=== PATIENT | female | born 1970 | race American Indian/Alaskan Native ===

== ENCOUNTER 2017-07-03 15:31 | Emergency (ER) | payer BC ==
[~2017-07-03] VITALS: Ht 162.6 cm; Wt 69.9 kg
[~2017-07-03 15:31] MED LIST: CLON0.5T23 PO; DESV50TA PO; FLO0.4C PO; LAMO100T2 PO
[2017-07-03 16:25] LABS: CLARITY,URINE SLIGHTLY CLOUDY (Clear); GLUCOSE, URINE NEGATIVE (Neg); KETONES,URINE TRACE mg/dl (Neg); LEUKOCYTE ESTERASE ,URINE NEGATIVE (Neg); NITRITES, URINE NEGATIVE (Neg); OCCULT BLOOD,URINE NEGATIVE (Neg); PROTEIN,URINE NEGATIVE (Neg); UROBILINOGEN,URINE 0.2 E.U/dL (0.2-1.0)
[2017-07-03 16:28] LABS: COLOR,URINE DARK YELLOW (Yellow); UA COLLECTION TYPE CLN CATCH MIDSTREAM
[2017-07-03 16:30] LABS: BACTERIA,URINE 1+ /HPF (Neg); MUCUS STRANDS MANY /LPF (Neg); RBC,URINE 0-2 /HPF (0-2); RENAL CELLS, URINE FEW /HPF; SQUAMOUS EPITHELIAL CELL,UR MANY /LPF (FEW); WBC,URINE 0-4 /HPF (0-4)
[2017-07-03] MEDS ORDERED: morphine 5 MG/ML injection IM ONE (17:00)
[2017-07-03 17:11] LABS: ANION GAP 11 (8-16); BLOOD UREA NITROGEN 16 MG/DL (7-18); BUN/CREATININE RATIO 13.3 (6.6-38.0); CALCIUM 9.2 MG/DL (8.5-10.1); CHLORIDE 104 MMOL/L (99-107); GLUCOSE 103 MG/DL (70-104); POTASSIUM 3.5 MMOL/L (3.5-5.1); SODIUM 141 MMOL/L (135-145); TOTAL CARBON DIOXIDE 26.1 MMOL/L (24-32); eGFR 48 ML/MIN
[2017-07-03] MEDS ORDERED: HYDR-569 PO (17:59)
[2017-07-03] MEDS ORDERED: FLO0.4C PO (17:59)
[2017-07-03] MEDS ORDERED: CYCL-1 PO (17:59)
[2017-07-03 18:06] VITALS: BP 106/70
== END 2017-07-03 18:08 | disposition home or self-care (01) ==
LOC: ER 15:32
DX: S39.012A Strain of muscle, fascia and tendon of lower back, initial encounter (principal); M62.838 Other muscle spasm; N18.9 Chronic kidney disease, unspecified; X58.XXXA Exposure to other specified factors, initial encounter; Y93.89 Activity, other specified; Y92.89 Other specified places as the place of occurrence of the external cause; Y99.8 Other external cause status; Z87.442 Personal history of urinary calculi; Z90.49 Acquired absence of other specified parts of digestive tract; Z88.1 Allergy status to other antibiotic agents; Z90.710 Acquired absence of both cervix and uterus
CPT/HCPCS: 36415; 80048; 81001; 96372; 99284; J2270

== ENCOUNTER 2017-08-25 06:04 | Day surgery (SDC) | payer BC ==
[2017-08-20 11:22] LABS: BASOPHILS % (AUTO) 0.7 % (0-1); EOSINOPHILS # (AUTO) 0.2 X10'3 (0-0.9); EOSINOPHILS % (AUTO) 3.1 % (0-6); LYMPHOCYTES # (AUTO) 2.3 X10'3 (1.1-4.8); LYMPHOCYTES % (AUTO) 38.4 % (21-51); MEAN CORPUSCULAR HEMOGLOBIN 30.3 PG (27.0-31.0); MEAN CORPUSCULAR HGB CONC 33.7 % (33.0-36.5); MEAN CORPUSCULAR VOLUME 89.7 FL (78-98); MEAN PLATELET VOLUME 7.8 FL (7.4-10.4); MONOCYTES # (AUTO) 0.4 X10'3 (0-0.9); MONOCYTES % (AUTO) 6.5 % (2-12); NEUTROPHILS # (AUTO) 3.1 X10'3 (1.8-7.7); NEUTROPHILS % (AUTO) 51.3 % (42-75); PRE OP HEMATOCRIT 45.7 % (35.0-45.0); PRE OP HEMOGLOBIN 15.4 g/dL (12.0-16.0); PRE OP PLATELET COUNT 281 X10'3 (140-440); RED BLOOD COUNT 5.09 X10'6 (4.20-5.60); RED CELL DISTRIBUTION WIDTH 12.9 % (11.5-14.5)
[2017-08-20 11:27] LABS: CLARITY,URINE CLEAR (Clear); COLOR,URINE YELLOW (Yellow); GLUCOSE, URINE NEGATIVE (Neg); KETONES,URINE NEGATIVE (Neg); LEUKOCYTE ESTERASE ,URINE NEGATIVE (Neg); NITRITES, URINE NEGATIVE (Neg); OCCULT BLOOD,URINE NEGATIVE (Neg); PROTEIN,URINE NEGATIVE (Neg); UROBILINOGEN,URINE 0.2 E.U/dL (0.2-1.0)
[2017-08-20 11:36] LABS: UA COLLECTION TYPE NON-SPECIFIED
[2017-08-20 11:38] LABS: ALBUMIN 4.2 G/DL (3.4-5.0); ALKALINE PHOSPHATASE 110 IU/L (46-116); BLOOD UREA NITROGEN 14 MG/DL (7-18); BUN/CREATININE RATIO 11.4 (6.6-38.0); CHLORIDE 103 MMOL/L (99-107); CREATININE 1.23 MG/DL (0.40-0.90); PRE OP ALT 46 U/L (30-65); PRE OP ANION GAP 9 (8-16); PRE OP AST 29 U/L (10-37); PRE OP BILIRUB, TOTAL 0.5 MG/DL (0.0-1.0); PRE OP GLUCOSE 108 MG/DL (70-104); PRE OP POTASSIUM 3.9 MMOL/L (3.4-5.1); PRE OP SODIUM 142 MMOL/L (135-145); TOTAL CARBON DIOXIDE 30.5 MMOL/L (24-32); TOTAL PROTEIN 8.3 G/DL (6.4-8.2); eGFR 47 ML/MIN
[~2017-08-25] VITALS: Ht 162.6 cm; Wt 70.3 kg
[2017-08-25] VITALS (10 sets, daily range): BP systolic 97–144; BP diastolic 50–73
[~2017-08-25 06:04] MED LIST changes: -FLO0.4C PO; +MELA3TAB PO; +cefazolin/dext.iso 2gm/50ml 50 ML IV ONE; +famotidine 20mg tablet PO ONE; +ringers solution, lacted 1,000 ML IV SCH
[2017-08-25] MEDS ORDERED: LIDOcaine 1% (10mg/ml) 2ml vial ONE (06:16)
[2017-08-25] MEDS ORDERED: BUPIVAcaine/PF 2.5 mg/ml (0.25%) 30ml vial ONE (07:45)
[2017-08-25] MEDS ORDERED: ceFAZolin 1000mg inj ONE (07:45)
[2017-08-25] MEDS ORDERED: epiNEPHrine 1 mg/ml inj ONE (07:45)
[2017-08-25] MEDS ORDERED: fentaNYL /PF 50mcg/ml 5ml ampule ONE (08:28)
[2017-08-25] MEDS ORDERED: midazolam 2 mg/2 ml injection ONE (08:28)
[2017-08-25] MEDS ORDERED: propofol inj 20 ML IV ONE (08:28)
[2017-08-25] MEDS ORDERED: rocuronium 10mg/ml inj IV ONE (08:34)
[2017-08-25] MEDS ORDERED: ketorolac trometh. 30mg/ml inj. ONE (08:49)
[2017-08-25] MEDS ORDERED: sevoflurane 250ml liquid IH ONE (08:49)
[2017-08-25] MEDS ORDERED: ringers solution, lacted 1,000 ML IV SCH (09:27)
[2017-08-25] MEDS ORDERED: proCHLORperazine 10 MG/2 ml inj IV PRN (09:30)
[2017-08-25] MEDS ORDERED: meperidine/PF 50mg/ml syringe IV PRN ×3 (09:30)
[2017-08-25] MEDS ORDERED: morphine 4 MG/ML inj SYRINge IV PRN ×2 (09:30)
[2017-08-25] MEDS ORDERED: ondansetron/PF 4mg/2ml inj IV PRN (09:30)
[2017-08-25] MEDS ORDERED: neostigmine methylsulfate 1 MG/ML 10ml vial ONE (09:31)
[2017-08-25] MEDS ORDERED: glycopyrrolate 0.2mg/ml inj ONE (09:32)
== END 2017-08-25 11:00 | disposition home or self-care (01) ==
LOC: PAS 06:04
PROVIDERS: ATTEND Surgery
DX: K43.6 Other and unspecified ventral hernia with obstruction, without gangrene (principal); K66.0 Peritoneal adhesions (postprocedural) (postinfection); F32.9 Major depressive disorder, single episode, unspecified; Z90.49 Acquired absence of other specified parts of digestive tract; Z90.710 Acquired absence of both cervix and uterus; Z88.2 Allergy status to sulfonamides; Z91.048 Other nonmedicinal substance allergy status; Z91.018 Allergy to other foods; Z88.8 Allergy status to other drugs, medicaments and biological substances; Z90.89 Acquired absence of other organs; Z79.899 Other long term (current) drug therapy; Z98.890 Other specified postprocedural states
CPT/HCPCS: 36415; 49653; 80053; 81003; 85025; A4315; J0171; J0690; J1885; J2250; J2270; J2704; J2710; J3010; J3490; J7120; A7000

== ENCOUNTER 2017-10-17 10:12 | Emergency (ER) | payer BC ==
[~2017-10-17] VITALS: Ht 162.6 cm; Wt 71.0 kg
[~2017-10-17 10:12] MED LIST changes: -cefazolin/dext.iso 2gm/50ml 50 ML IV ONE; -famotidine 20mg tablet PO ONE; -ringers solution, lacted 1,000 ML IV SCH
[2017-10-17 10:22] VITALS: BP 112/76
[2017-10-17 10:47] LABS: BASOPHILS % (AUTO) 0.4 % (0-1); EOSINOPHILS # (AUTO) 0.2 X10'3 (0-0.9); EOSINOPHILS % (AUTO) 2.9 % (0-6); HEMATOCRIT 43.4 % (35.0-45.0); HEMOGLOBIN 14.9 g/dl (12.0-16.0); LYMPHOCYTES # (AUTO) 2.4 X10'3 (1.1-4.8); LYMPHOCYTES % (AUTO) 38.4 % (21-51); MEAN CORPUSCULAR HEMOGLOBIN 30.7 PG (27.0-31.0); MEAN CORPUSCULAR HGB CONC 34.4 % (33.0-36.5); MEAN CORPUSCULAR VOLUME 89.4 FL (78-98); MEAN PLATELET VOLUME 7.4 FL (7.4-10.4); MONOCYTES # (AUTO) 0.4 X10'3 (0-0.9); MONOCYTES % (AUTO) 6.5 % (2-12); NEUTROPHILS # (AUTO) 3.3 X10'3 (1.8-7.7); NEUTROPHILS % (AUTO) 51.8 % (42-75); PLATELET COUNT 278 X10'3 (140-440); RED BLOOD COUNT 4.85 X10'6 (4.20-5.60); RED CELL DISTRIBUTION WIDTH 13.1 % (11.5-14.5); WHITE BLOOD COUNT 6.3 X10'3 (4.5-11.0)
[2017-10-17 11:00] LABS: CLARITY,URINE CLEAR (Clear); COLOR,URINE YELLOW (Yellow); GLUCOSE, URINE NEGATIVE (Neg); KETONES,URINE NEGATIVE (Neg); LEUKOCYTE ESTERASE ,URINE TRACE (Neg); NITRITES, URINE NEGATIVE (Neg); OCCULT BLOOD,URINE NEGATIVE (Neg); PH,URINE 5.5 (4.8-8.0); PROTEIN,URINE NEGATIVE (Neg); URINE HCG NEGATIVE (NEG); UROBILINOGEN,URINE 0.2 E.U/dL (0.2-1.0)
[2017-10-17 11:02] LABS: ALBUMIN 4.1 G/DL (3.4-5.0); ANION GAP 8 (8-16); BILIRUBIN,TOTAL 0.6 MG/DL (0.1-1.0); BLOOD UREA NITROGEN 16 MG/DL (7-18); BUN/CREATININE RATIO 11.5 (6.6-38.0); CALCIUM 9.6 MG/DL (8.5-10.1); CHLORIDE 102 MMOL/L (99-107); CREATININE 1.39 MG/DL (0.40-0.90); GLUCOSE 110 MG/DL (70-104); POTASSIUM 3.3 MMOL/L (3.5-5.1); SODIUM 139 MMOL/L (135-145); TOTAL CARBON DIOXIDE 28.7 MMOL/L (24-32); TOTAL PROTEIN 7.9 G/DL (6.4-8.2); eGFR 41 ML/MIN
[2017-10-17 11:03] LABS: ALANINE AMINOTRANSFERASE 40 U/L (12-78); ALBUMIN/GLOBULIN RATIO 1.1 (1.1-1.5); ALKALINE PHOSPHATASE 124 IU/L (46-116); ASPARTATE AMINO TRANSFERASE 24 U/L (10-37)
[2017-10-17 11:04] LABS: UA COLLECTION TYPE CLN CATCH MIDSTREAM
[2017-10-17 11:05] LABS: BACTERIA,URINE FEW /HPF (Neg); MUCUS STRANDS FEW /LPF (Neg); RBC,URINE 0-2 /HPF (0-2); SQUAMOUS EPITHELIAL CELL,UR MODERATE /LPF (FEW)
[2017-10-17 11:06] LABS: PROTHROMBIN TIME 10.2 SECONDS (9.0-12.0)
[2017-10-17] MEDS ORDERED: CIPR-230 PO (11:53)
[2017-10-17] MEDS ORDERED: HYDR-3965 PO (11:53)
== END 2017-10-17 12:03 | disposition home or self-care (01) ==
LOC: ER 10:13
DX: N39.0 Urinary tract infection, site not specified (principal); N18.9 Chronic kidney disease, unspecified; Z87.442 Personal history of urinary calculi; Z90.49 Acquired absence of other specified parts of digestive tract; Z90.710 Acquired absence of both cervix and uterus; Z88.8 Allergy status to other drugs, medicaments and biological substances; Z79.899 Other long term (current) drug therapy
CPT/HCPCS: 36415; 74176; 80053; 81001; 81025; 85025; 85610; 87088; 99285

== ENCOUNTER 2017-11-03 12:49 | Emergency (ER) | payer BC ==
[~2017-11-03] VITALS: Ht 162.6 cm; Wt 70.9 kg
[~2017-11-03 12:49] MED LIST changes: +CIPR-230 PO; +HYDR-3965 PO
[2017-11-03 14:14] LABS: BASOPHILS # (AUTO) 0.1 X10'3 (0-0.2); EOSINOPHILS # (AUTO) 0.2 X10'3 (0-0.9); HEMATOCRIT 41.9 % (35.0-45.0); HEMOGLOBIN 14.7 g/dl (12.0-16.0); LYMPHOCYTES # (AUTO) 2.2 X10'3 (1.1-4.8); LYMPHOCYTES % (AUTO) 43.3 % (21-51); MEAN CORPUSCULAR HGB CONC 35.1 % (33.0-36.5); MEAN CORPUSCULAR VOLUME 88.4 FL (78-98); MEAN PLATELET VOLUME 7.6 FL (7.4-10.4); MONOCYTES # (AUTO) 0.4 X10'3 (0-0.9); NEUTROPHILS # (AUTO) 2.3 X10'3 (1.8-7.7); NEUTROPHILS % (AUTO) 45.7 % (42-75); PLATELET COUNT 256 X10'3 (140-440); RED BLOOD COUNT 4.74 X10'6 (4.20-5.60); RED CELL DISTRIBUTION WIDTH 13.1 % (11.5-14.5); WHITE BLOOD COUNT 5.1 X10'3 (4.5-11.0)
[2017-11-03 14:30] LABS: ALANINE AMINOTRANSFERASE 40 U/L (12-78); ALKALINE PHOSPHATASE 103 IU/L (46-116); ANION GAP 12 (8-16); ASPARTATE AMINO TRANSFERASE 29 U/L (10-37); BILIRUBIN,TOTAL 0.6 MG/DL (0.1-1.0); BLOOD UREA NITROGEN 15 MG/DL (7-18); BUN/CREATININE RATIO 12.3 (6.6-38.0); CALCIUM 9.2 MG/DL (8.5-10.1); CHLORIDE 103 MMOL/L (99-107); CREATININE 1.22 MG/DL (0.40-0.90); GLUCOSE 102 MG/DL (70-104); POTASSIUM 3.7 MMOL/L (3.5-5.1); SODIUM 141 MMOL/L (135-145); TOTAL CARBON DIOXIDE 25.8 MMOL/L (24-32); eGFR 47 ML/MIN
[2017-11-03 14:40] LABS: ETHANOL < 0.010 GM/DL (0.0-0.010)
[2017-11-03 14:58] LABS: CLARITY,URINE CLOUDY (Clear); COLOR,URINE YELLOW (Yellow); GLUCOSE, URINE NEGATIVE (Neg); KETONES,URINE NEGATIVE (Neg); LEUKOCYTE ESTERASE ,URINE TRACE (Neg); NITRITES, URINE NEGATIVE (Neg); OCCULT BLOOD,URINE NEGATIVE (Neg); PH,URINE 5.5 (4.8-8.0); PROTEIN,URINE NEGATIVE (Neg); UA COLLECTION TYPE CLN CATCH MIDSTREAM; UROBILINOGEN,URINE 0.2 E.U/dL (0.2-1.0)
[2017-11-03 14:59] LABS: URINE HCG NEGATIVE (NEG)
[2017-11-03 15:16] LABS: MUCUS STRANDS MODERATE /LPF (Neg); SQUAMOUS EPITHELIAL CELL,UR MANY /LPF (FEW)
[2017-11-03 15:17] LABS: BACTERIA,URINE 1+ /HPF (Neg); RBC,URINE 0-2 /HPF (0-2); WBC,URINE 0-4 /HPF (0-4)
[2017-11-03 15:23] LABS: URINE AMPHETAMINE SCREEN NEGATIVE (Neg); URINE BARBITUATE SCREEN NEGATIVE (Neg); URINE BENZODIAZEPINES SCREEN NEGATIVE (Neg); URINE CANNABINOID SCREEN POSITIVE (Neg); URINE COCAINE SCREEN NEGATIVE (Neg); URINE METHADONE SCREEN NEGATIVE (Neg); URINE OPIATE SCREEN POSITIVE (Neg); URINE PHENCYCLIDINE SCREEN NEGATIVE (Neg)
[2017-11-03 17:44] LABS: ACETAMINOPHEN < 2.0 UG/ML (10-30)
[2017-11-03] MEDS ORDERED: LORazepam 2 mg/ml vial IM ONE (19:20)
[2017-11-03] MEDS ORDERED: LORazepam 2 mg/ml vial ONE (19:52)
[2017-11-03] MEDS ORDERED: CLON-527 PO (20:04)
[2017-11-03] MEDS ORDERED: TAMS0.4C32 PO (20:04)
[2017-11-03] MEDS ORDERED: DICL75TA5 PO (20:04)
[2017-11-03] MEDS ORDERED: ACET1TAB12 PO (20:04)
[2017-11-03] MEDS ORDERED: acetaminophen w/codeine (30MG) #3 tablet PO PRN (20:25)
[2017-11-03] MEDS ORDERED: Melatonin 3mg tablet PO PRN (20:25)
[2017-11-03] MEDS ORDERED: venlafaxine 25mg tablet PO SCH (21:00)
[2017-11-03 22:07] VITALS: BP 97/65
[2017-11-04] MEDS ORDERED: clonazePAM 1mg tablet PO SCH (08:00)
[2017-11-04] MEDS ORDERED: lamoTRIgine 100mg tablet PO SCH (08:00)
[2017-11-04] MEDS ORDERED: tamsulosin 0.4mg capsule PO SCH (08:00)
== END 2017-11-03 22:10 ==
LOC: ER 12:50
DX: F32.9 Major depressive disorder, single episode, unspecified (principal); R45.851 Suicidal ideations; N18.9 Chronic kidney disease, unspecified; F15.10 Other stimulant abuse, uncomplicated; Z90.49 Acquired absence of other specified parts of digestive tract; Z98.890 Other specified postprocedural states; Z91.02 Food additives allergy status; Z88.8 Allergy status to other drugs, medicaments and biological substances; Z79.899 Other long term (current) drug therapy
CPT/HCPCS: 36415; 80053; 80305; 80320; 80329; 81001; 81025; 84443; 85025; 96372; 99285; J2060

== ENCOUNTER 2017-11-03 20:45 | Inpatient (IN) | payer BC ==
[~2017-11-03] VITALS: Ht 162.6 cm; Wt 71.5 kg
[~2017-11-03 20:45] MED LIST changes: +ACET1TAB12 PO; +CLON-527 PO; +DICL75TA5 PO; +TAMS0.4C32 PO
[2017-11-03] MEDS ORDERED: acetaminophen 325mg tablet PO PRN (22:40)
[2017-11-03] MEDS ORDERED: magnesium hydroxide 30ml (MOM) UD suspension PO PRN (22:40)
[2017-11-03] MEDS ORDERED: mag hydrox/Alum hydrox/simeth 30ml oral suspension PO PRN (22:40)
[2017-11-03 23:19] VITALS: BP 110/76
[2017-11-04 08:32] VITALS: BP 116/87
[2017-11-04] MEDS: lamoTRIgine 100mg tablet PO SCH (08:40)
[2017-11-04] MEDS: clonazePAM 1mg tablet PO SCH ×2 (08:40→21:02)
[2017-11-04 09:54] LABS: HEMOGLOBIN A1C 5.7 % (4.5-6.2)
[2017-11-04 10:12] LABS: CHOL/HDL RATIO 6.9 (0.00-4.99); CHOLESTEROL 284 MG/DL (0-200); HDL CHOLESTEROL 41 MG/DL (35-60); LDL CHOLESTEROL 205 MG/DL (50-100); TRIGLYCERIDES 168 MG/DL (20-135)
[2017-11-04] MEDS: atorvastatin 20mg tablet PO SCH (12:38)
[2017-11-04] MEDS: acetaminophen w/codeine (30MG) #3 tablet PO PRN ×2 (12:41→21:01)
[2017-11-04 19:47] VITALS: BP 98/62
[2017-11-04] MEDS: traZODone 50mg tablet PO PRN (21:08)
[2017-11-05] MEDS ORDERED: venlafaxine XR 75mg capsule (Q24H) PO SCH (08:00)
[2017-11-05] MEDS: atorvastatin 20mg tablet PO SCH (08:20)
[2017-11-05] MEDS: lamoTRIgine 100mg tablet PO SCH (08:21)
[2017-11-05] MEDS: clonazePAM 1mg tablet PO SCH ×2 (08:21→20:40)
[2017-11-05 08:30] VITALS: BP 95/63
[2017-11-05] MEDS: DESVENLAFAXINE PO SCH (09:08)
[2017-11-05] MEDS: acetaminophen w/codeine (30MG) #3 tablet PO PRN ×2 (13:47→20:39)
[2017-11-05 20:34] VITALS: BP 103/62
[2017-11-05] MEDS: traZODone 50mg tablet PO PRN (20:38)
[2017-11-06] MEDS: DESVENLAFAXINE PO SCH (08:02)
[2017-11-06] MEDS: lamoTRIgine 100mg tablet PO SCH (08:02)
[2017-11-06] MEDS: atorvastatin 20mg tablet PO SCH (08:03)
[2017-11-06] MEDS: clonazePAM 1mg tablet PO SCH ×2 (08:03→20:32)
[2017-11-06 08:24] VITALS: BP 91/46
[2017-11-06] MEDS: acetaminophen 325mg tablet PO PRN ×3 (10:07→17:52)
[2017-11-06] MEDS: acetaminophen w/codeine (30MG) #3 tablet PO PRN (17:56)
[2017-11-06 20:00] VITALS: BP 107/61
[2017-11-06] MEDS: traZODone 50mg tablet PO PRN (20:32)
[2017-11-07 08:00] VITALS: BP 103/58
[2017-11-07] MEDS: DESVENLAFAXINE PO SCH (08:35)
[2017-11-07] MEDS: lamoTRIgine 100mg tablet PO SCH (08:36)
[2017-11-07] MEDS: clonazePAM 1mg tablet PO SCH ×2 (08:36→20:50)
[2017-11-07] MEDS: atorvastatin 20mg tablet PO SCH (08:36)
[2017-11-07] MEDS ORDERED: DESVENLAFAXINE PO SCH (13:06)
[2017-11-07] MEDS ORDERED: hydrOXYzine 25 MG tablet PO PRN (17:40)
[2017-11-07 19:16] VITALS: BP 116/70
[2017-11-07] MEDS: acetaminophen w/codeine (30MG) #3 tablet PO PRN (20:49)
[2017-11-07] MEDS: traZODone 50mg tablet PO PRN (20:50)
[2017-11-08] MEDS: atorvastatin 20mg tablet PO SCH (07:58)
[2017-11-08] MEDS: clonazePAM 1mg tablet PO SCH (07:58)
[2017-11-08] MEDS: lamoTRIgine 100mg tablet PO SCH (07:58)
[2017-11-08 08:00] VITALS: BP 103/65
[2017-11-08] MEDS ORDERED: ATOR20TA66 PO (08:50)
[2017-11-08] MEDS ORDERED: TRAZ-143 PO (08:50)
[2017-11-08] MEDS ORDERED: HYDR-3686 PO (08:50)
[2017-11-08] MEDS ORDERED: DESV100T16 PO (08:50)
== END 2017-11-08 10:35 | disposition home or self-care (01) | DRG 881 ==
LOC: ADULT MH 20:45
PROVIDERS: ADMIT Psychiatry & Neurology Psychiatry; ATTEND Psychiatry & Neurology Psychiatry
DX: F32.9 Major depressive disorder, single episode, unspecified (principal); R45.851 Suicidal ideations; E78.5 Hyperlipidemia, unspecified; F43.10 Post-traumatic stress disorder, unspecified; K57.90 Diverticulosis of intestine, part unspecified, without perforation or abscess without bleeding; S61.519A Laceration without foreign body of unspecified wrist, initial encounter; W45.8XXA Other foreign body or object entering through skin, initial encounter; F41.9 Anxiety disorder, unspecified; G47.00 Insomnia, unspecified; N18.9 Chronic kidney disease, unspecified; Z62.810 Personal history of physical and sexual abuse in childhood; Z81.8 Family history of other mental and behavioral disorders; Z87.442 Personal history of urinary calculi; Z90.710 Acquired absence of both cervix and uterus; Y93.89 Activity, other specified; Y92.89 Other specified places as the place of occurrence of the external cause; Y99.8 Other external cause status
CPT/HCPCS: 36415; 80061; 83036; 84443; 87070; 99285; Q0177

== ENCOUNTER 2017-11-21 18:09 | Emergency (ER) | payer BC ==
[~2017-11-21] VITALS: Ht 162.6 cm; Wt 70.0 kg
[~2017-11-21 18:09] MED LIST changes: +ATOR20TA66 PO; -CIPR-230 PO; -CLON0.5T23 PO; +DESV100T16 PO; -DESV50TA PO; +HYDR-3686 PO; -HYDR-3965 PO; +TRAZ-143 PO
[2017-11-21 18:55] LABS: CLARITY,URINE SLIGHTLY CLOUDY (Clear); COLOR,URINE YELLOW (Yellow); GLUCOSE, URINE NEGATIVE (Neg); KETONES,URINE NEGATIVE (Neg); LEUKOCYTE ESTERASE ,URINE TRACE (Neg); NITRITES, URINE NEGATIVE (Neg); OCCULT BLOOD,URINE NEGATIVE (Neg); PH,URINE 5.5 (4.8-8.0); PROTEIN,URINE NEGATIVE (Neg); UROBILINOGEN,URINE 0.2 E.U/dL (0.2-1.0)
[2017-11-21 18:56] LABS: UA COLLECTION TYPE CLN CATCH MIDSTREAM
[2017-11-21 19:13] LABS: BACTERIA,URINE 2+ /HPF (Neg); MUCUS STRANDS MANY /LPF (Neg); RBC,URINE NONE SEEN /HPF (0-2); SQUAMOUS EPITHELIAL CELL,UR MANY /LPF (FEW)
[2017-11-21 19:32] LABS: BASOPHILS # (AUTO) 0.1 X10'3 (0-0.2); BASOPHILS % (AUTO) 1.4 % (0-1); EOSINOPHILS # (AUTO) 0.2 X10'3 (0-0.9); EOSINOPHILS % (AUTO) 3.2 % (0-6); HEMATOCRIT 43.7 % (35.0-45.0); LYMPHOCYTES # (AUTO) 2.8 X10'3 (1.1-4.8); LYMPHOCYTES % (AUTO) 38.4 % (21-51); MEAN CORPUSCULAR HEMOGLOBIN 30.9 PG (27.0-31.0); MEAN CORPUSCULAR HGB CONC 34.3 % (33.0-36.5); MEAN CORPUSCULAR VOLUME 90.2 FL (78-98); MEAN PLATELET VOLUME 7.5 FL (7.4-10.4); MONOCYTES # (AUTO) 0.4 X10'3 (0-0.9); MONOCYTES % (AUTO) 5.8 % (2-12); NEUTROPHILS # (AUTO) 3.7 X10'3 (1.8-7.7); NEUTROPHILS % (AUTO) 51.2 % (42-75); PLATELET COUNT 276 X10'3 (140-440); RED BLOOD COUNT 4.85 X10'6 (4.20-5.60); WHITE BLOOD COUNT 7.3 X10'3 (4.5-11.0)
[2017-11-21] MEDS ORDERED: ondansetron/PF 4mg/2ml inj IV ONE (19:45)
[2017-11-21] MEDS ORDERED: normal saline 1000ML IV soln IVB ONE (19:45)
[2017-11-21] MEDS ORDERED: ketorolac tromethamine 15mg/ml inj. IV ONE (19:45)
[2017-11-21 19:48] LABS: ALANINE AMINOTRANSFERASE 37 U/L (12-78); ALBUMIN 4.3 G/DL (3.4-5.0); ALKALINE PHOSPHATASE 133 IU/L (46-116); ANION GAP 11 (8-16); ASPARTATE AMINO TRANSFERASE 24 U/L (10-37); BILIRUBIN,TOTAL 0.7 MG/DL (0.1-1.0); BLOOD UREA NITROGEN 16 MG/DL (7-18); BUN/CREATININE RATIO 11.9 (6.6-38.0); CALCIUM 9.8 MG/DL (8.5-10.1); CHLORIDE 102 MMOL/L (99-107); CREATININE 1.34 MG/DL (0.40-0.90); GLUCOSE 94 MG/DL (70-104); POTASSIUM 3.8 MMOL/L (3.5-5.1); SODIUM 140 MMOL/L (135-145); TOTAL CARBON DIOXIDE 27.4 MMOL/L (24-32); TOTAL PROTEIN 8.4 G/DL (6.4-8.2); eGFR 43 ML/MIN
[2017-11-21 20:07] LABS: CLARITY,URINE CLEAR (Clear); COLOR,URINE YELLOW (Yellow); GLUCOSE, URINE NEGATIVE (Neg); KETONES,URINE NEGATIVE (Neg); LEUKOCYTE ESTERASE ,URINE NEGATIVE (Neg); NITRITES, URINE NEGATIVE (Neg); OCCULT BLOOD,URINE NEGATIVE (Neg); PH,URINE 5.5 (4.8-8.0); PROTEIN,URINE NEGATIVE (Neg); UROBILINOGEN,URINE 0.2 E.U/dL (0.2-1.0)
[2017-11-21 20:11] LABS: UA COLLECTION TYPE CLN CATCH MIDSTREAM
[2017-11-21 20:11] LABS: LIPASE 113 U/L (73-393)
[2017-11-21 20:16] LABS: PROTHROMBIN TIME 10.7 SECONDS (9.0-12.0)
[2017-11-21] MEDS ORDERED: HYDR-565 PO (20:32)
[2017-11-21] MEDS ORDERED: ONDA4TAB9 SL (20:32)
[2017-11-21] MEDS ORDERED: FLO0.4C PO (20:32)
[2017-11-21 20:53] VITALS: BP 100/70
== END 2017-11-21 20:56 | disposition home or self-care (01) ==
LOC: ER 18:09
DX: N20.0 Calculus of kidney (principal); N18.9 Chronic kidney disease, unspecified; R10.31 Right lower quadrant pain; Z90.49 Acquired absence of other specified parts of digestive tract; Z90.710 Acquired absence of both cervix and uterus; Z88.2 Allergy status to sulfonamides; Z88.8 Allergy status to other drugs, medicaments and biological substances; Z91.018 Allergy to other foods; Z79.899 Other long term (current) drug therapy
CPT/HCPCS: 36415; 74176; 80053; 81001; 81003; 83690; 85025; 85610; 96374; 96375; 99285; J1885; J2405; J7030

== ENCOUNTER 2018-03-14 18:25 | Emergency (ER) | payer BC ==
[~2018-03-14] VITALS: Ht 162.6 cm; Wt 68.1 kg
[~2018-03-14 18:25] MED LIST changes: -TRAZ-143 PO; +TRAZ-218 PO
[2018-03-14 18:32] VITALS: BP 127/63
[2018-03-14] MEDS ORDERED: HYDROcodone/acetaminophen 10/325mg tab PO ONE (19:05)
== END 2018-03-14 19:24 | disposition home or self-care (01) ==
LOC: ER 18:26
DX: M25.562 Pain in left knee (principal); N18.9 Chronic kidney disease, unspecified; Z90.49 Acquired absence of other specified parts of digestive tract; Z90.710 Acquired absence of both cervix and uterus; Z98.890 Other specified postprocedural states; Z88.2 Allergy status to sulfonamides; Z88.1 Allergy status to other antibiotic agents; Z88.8 Allergy status to other drugs, medicaments and biological substances; Z91.018 Allergy to other foods; Z79.899 Other long term (current) drug therapy
CPT/HCPCS: 29505; 73564; 99284

== ENCOUNTER 2018-07-05 18:20 | Emergency (ER) | payer BC ==
[~2018-07-05] VITALS: Ht 162.6 cm; Wt 70.0 kg
[2018-07-05 19:22] LABS: BASOPHILS # (AUTO) 0.1 X10'3 (0-0.2); BASOPHILS % (AUTO) 0.7 % (0-1); EOSINOPHILS # (AUTO) 0.1 X10'3 (0-0.9); EOSINOPHILS % (AUTO) 1.7 % (0-6); HEMATOCRIT 42.7 % (35.0-45.0); HEMOGLOBIN 14.5 g/dl (12.0-16.0); LYMPHOCYTES # (AUTO) 2.2 X10'3 (1.1-4.8); MEAN CORPUSCULAR HEMOGLOBIN 31.4 PG (27.0-31.0); MEAN CORPUSCULAR VOLUME 92.2 FL (78-98); MEAN PLATELET VOLUME 7.4 FL (7.4-10.4); MONOCYTES # (AUTO) 0.4 X10'3 (0-0.9); NEUTROPHILS # (AUTO) 4.6 X10'3 (1.8-7.7); NEUTROPHILS % (AUTO) 61.6 % (42-75); PLATELET COUNT 304 X10'3 (140-440); RED BLOOD COUNT 4.64 X10'6 (4.20-5.60); RED CELL DISTRIBUTION WIDTH 12.7 % (11.5-14.5); WHITE BLOOD COUNT 7.4 X10'3 (4.5-11.0)
[2018-07-05 19:30] LABS: CLARITY,URINE CLEAR (Clear); COLOR,URINE YELLOW (Yellow); GLUCOSE, URINE NEGATIVE (Neg); KETONES,URINE NEGATIVE (Neg); LEUKOCYTE ESTERASE ,URINE NEGATIVE (Neg); NITRITES, URINE NEGATIVE (Neg); OCCULT BLOOD,URINE NEGATIVE (Neg); PROTEIN,URINE NEGATIVE (Neg); UROBILINOGEN,URINE 0.2 E.U/dL (0.2-1.0)
[2018-07-05 19:36] LABS: ALANINE AMINOTRANSFERASE 36 U/L (12-78); ALBUMIN 4.4 G/DL (3.4-5.0); ALBUMIN/GLOBULIN RATIO 1.1 (1.1-1.5); ALKALINE PHOSPHATASE 115 IU/L (46-116); ANION GAP 11 (8-16); ASPARTATE AMINO TRANSFERASE 17 U/L (10-37); BILIRUBIN,TOTAL 0.2 MG/DL (0.1-1.0); BLOOD UREA NITROGEN 16 MG/DL (7-18); BUN/CREATININE RATIO 14.7 (6.6-38.0); CALCIUM 9.3 MG/DL (8.5-10.1); CHLORIDE 103 MMOL/L (99-107); CREATININE 1.09 MG/DL (0.40-0.90); GLUCOSE 106 MG/DL (70-104); POTASSIUM 3.9 MMOL/L (3.5-5.1); SODIUM 143 MMOL/L (135-145); TOTAL CARBON DIOXIDE 29.2 MMOL/L (24-32); TOTAL PROTEIN 8.4 G/DL (6.4-8.2); eGFR 54 ML/MIN
[2018-07-05 19:38] LABS: UA COLLECTION TYPE CLN CATCH MIDSTREAM
[2018-07-05 19:43] LABS: PROTHROMBIN TIME 10.2 SECONDS (9.0-12.0)
[2018-07-05 19:48] LABS: URINE HCG NEGATIVE (NEG)
--- NOTE | 2018-07-05 21:37 | NUR ---
Patient is laying on the gurney in obvious discomfort, she reports abdominal/vaginal pain 12/21. She has had several abdominal surgeries and adhesion removals. Has seen PCP and Dr. Mas for this problem and they both think she has a prolapse and has been referred to Dr. Barajas. I will continue to monitor.
--- NOTE | 2018-07-05 22:33 | NUR ---
Patient laying comfortably sleeping on gurney, I will continue to monitor.
[2018-07-05] MEDS ORDERED: HYDROcodone/acetaminophen 5mg/325mg tablet PO ONE (22:45)
[2018-07-05] MEDS ORDERED: ketorolac trometh inj. 60 MG/2 ML VIAL IM ONE (22:45)
[2018-07-06 00:33] VITALS: BP 112/69
== END 2018-07-06 00:35 | disposition home or self-care (01) ==
LOC: ER 18:20
DX: R10.30 Lower abdominal pain, unspecified (principal); R30.9 Painful micturition, unspecified; N18.9 Chronic kidney disease, unspecified; Z90.49 Acquired absence of other specified parts of digestive tract; Z90.710 Acquired absence of both cervix and uterus; Z98.890 Other specified postprocedural states; Z88.1 Allergy status to other antibiotic agents; Z91.013 Allergy to seafood; Z91.041 Radiographic dye allergy status; Z79.899 Other long term (current) drug therapy
CPT/HCPCS: 36415; 80053; 81003; 81025; 85025; 85610; 96372; 99283; J1885

== ENCOUNTER 2018-10-05 08:49 | Day surgery (SDC) | payer BC, MEDICARE ==
[2018-10-03 16:57] LABS: CLARITY,URINE SLIGHTLY CLOUDY (Clear); COLOR,URINE YELLOW (Yellow); GLUCOSE, URINE NEGATIVE (Neg); KETONES,URINE TRACE mg/dl (Neg); LEUKOCYTE ESTERASE ,URINE TRACE (Neg); NITRITES, URINE NEGATIVE (Neg); OCCULT BLOOD,URINE NEGATIVE (Neg); PH,URINE 5.5 (4.8-8.0); PROTEIN,URINE NEGATIVE (Neg); UROBILINOGEN,URINE 0.2 E.U/dL (0.2-1.0)
[2018-10-03 16:58] LABS: ALBUMIN 4.3 G/DL (3.4-5.0); ALBUMIN/GLOBULIN RATIO 1.1 (1.1-1.5); ALKALINE PHOSPHATASE 111 IU/L (46-116); BLOOD UREA NITROGEN 16 MG/DL (7-18); BUN/CREATININE RATIO 12.8 (6.6-38.0); CALCIUM 10.3 MG/DL (8.5-10.1); CHLORIDE 102 MMOL/L (99-107); CREATININE 1.25 MG/DL (0.40-0.90); PRE OP ALT 59 U/L (30-65); PRE OP ANION GAP 10 (8-16); PRE OP AST 31 U/L (10-37); PRE OP BILIRUB, TOTAL 0.3 MG/DL (0.0-1.0); PRE OP GLUCOSE 93 MG/DL (70-104); PRE OP POTASSIUM 3.7 MMOL/L (3.4-5.1); PRE OP SODIUM 140 MMOL/L (135-145); TOTAL CARBON DIOXIDE 28.3 MMOL/L (24-32); TOTAL PROTEIN 8.3 G/DL (6.4-8.2); eGFR 46 ML/MIN
[2018-10-03 17:05] LABS: BACTERIA,URINE 1+ /HPF (Neg); RBC,URINE NONE SEEN /HPF (0-2); SQUAMOUS EPITHELIAL CELL,UR MODERATE /LPF (FEW); UA COLLECTION TYPE CLN CATCH MIDSTREAM
[2018-10-03 17:05] LABS: BASOPHILS % (AUTO) 0.5 % (0-1); EOSINOPHILS # (AUTO) 0.2 X10'3 (0-0.9); EOSINOPHILS % (AUTO) 2.4 % (0-6); LYMPHOCYTES # (AUTO) 2.3 X10'3 (1.1-4.8); LYMPHOCYTES % (AUTO) 32.6 % (21-51); MEAN CORPUSCULAR HEMOGLOBIN 31.5 PG (27.0-31.0); MEAN CORPUSCULAR HGB CONC 34.2 g/dL (33.0-36.5); MEAN CORPUSCULAR VOLUME 92.1 FL (78-98); MEAN PLATELET VOLUME 7.5 FL (7.4-10.4); MONOCYTES # (AUTO) 0.6 X10'3 (0-0.9); MONOCYTES % (AUTO) 7.8 % (2-12); NEUTROPHILS % (AUTO) 56.7 % (42-75); PRE OP HEMATOCRIT 43.6 % (35.0-45.0); PRE OP HEMOGLOBIN 14.9 g/dL (12.0-16.0); PRE OP PLATELET COUNT 290 X10'3 (140-440); RED BLOOD COUNT 4.73 X10'6 (4.20-5.60); RED CELL DISTRIBUTION WIDTH 12.6 % (11.5-14.5)
[2018-10-03 17:06] LABS: MUCUS STRANDS MANY /LPF (Neg)
[2018-10-05] VITALS (9 sets, daily range): BP systolic 92–121; BP diastolic 60–79
[~2018-10-05] VITALS: Ht 162.6 cm; Wt 71.0 kg
[~2018-10-05 08:49] MED LIST changes: -ACET1TAB12 PO; -ATOR20TA66 PO; +BUPIVAcaine/PF 2.5 mg/ml (0.25%) 30ml vial ONE; -CLON-527 PO; +DESV100T PO; -DESV100T16 PO; -DICL75TA5 PO; -HYDR-3686 PO; +LORA-835 PO; -MELA3TAB PO; -TAMS0.4C32 PO; -TRAZ-218 PO; +ceFAZolin 2gm in dextrose, iso 100 ML IV ONE; +famotidine 20mg tablet PO ONE; +ringers solution, lacted 1,000 ML IV SCH
[2018-10-05] MEDS ORDERED: BUPIVAcaine/PF 2.5 mg/ml (0.25%) 30ml vial IJ ONE (11:06)
[2018-10-05] MEDS ORDERED: sevoflurane 250ml liquid IH ONE (11:30)
[2018-10-05] MEDS ORDERED: BUPIVACAINE liposomal/PF 13.3 MG/ML vial IM ONE (11:30)
[2018-10-05] MEDS ORDERED: neostigmine methylsulfate 1 MG/ML 10ml vial ONE (11:30)
[2018-10-05] MEDS ORDERED: fentaNYL/PF 50MCG/1 ML 2ML syringe ONE (11:45)
[2018-10-05] MEDS ORDERED: midazolam 2 mg/2 ml injection ONE (11:45)
[2018-10-05] MEDS ORDERED: LIDOcaine 1%/PF 5ML 10 MG/ML VIAL ONE (12:10)
[2018-10-05] MEDS ORDERED: propofol inj 20 ML IV ONE (12:10)
[2018-10-05] MEDS ORDERED: rocuronium 10mg/ml inj IV ONE (12:10)
[2018-10-05] MEDS ORDERED: dexamethasone sod phosphate 4mg/ml inj. ONE (12:28)
[2018-10-05] MEDS ORDERED: ondansetron/PF 4mg/2ml inj ONE (12:29)
[2018-10-05] MEDS ORDERED: glycopyrrolate 0.2mg/ml inj ONE (12:30)
[2018-10-05] MEDS ORDERED: ringers solution, lacted 1,000 ML IV SCH (12:33)
[2018-10-05] MEDS ORDERED: labetalol 20mg/4ml (5mg/ml) syringe IV PRN (12:35)
[2018-10-05] MEDS ORDERED: ondansetron/PF 4mg/2ml inj IV PRN (12:35)
[2018-10-05] MEDS ORDERED: fentaNYL/PF 50MCG/1 ML 2ML syringe IV PRN ×2 (12:35)
[2018-10-05] MEDS ORDERED: morphine 4 MG/ML inj SYRINge IV PRN ×2 (12:35)
[2018-10-05] MEDS ORDERED: hydrALAZINE 20mg/ml inj. IV PRN (12:35)
--- NOTE | 2018-10-05 12:55 | NUR ---
Received from OR via BED , accompanied by Anesthesiologist DR MACHADO and report given by Anesthesiolgist. PATIENT WAKING UP, DENIES PAIN, V/S WNL, NEUROVASCULAR CHECKS INTACT, 20G PIV LUE, SCD ON, 3 BANDAIDS TO LAP SIGHTS OF ABDOMEN CDI.
--- NOTE | 2018-10-05 13:55 | NUR ---
PATIENT A&OX4, DENIES PAIN, V/S WNL, NEUROVASCULAR CHECKS INTACT, 20G PIV LUE D/C, SCD OFF, 3 BANDAIDS TO LAP SIGHTS OF ABDOMEN CDI.. I HAVE REVIEWED D/C INSTRUCTIONS WITH PATIENT AND FAMILY HAVE VERBALIZED UNDERSTANDING.PATIENT WAS D/C HOME WITH ALL BELONGINGS AND FAMILY GAVE TRANSPORT HOME.
== END 2018-10-05 13:55 | disposition home or self-care (01) ==
LOC: PAS 08:49
PROVIDERS: ATTEND Surgery
DX: N73.6 Female pelvic peritoneal adhesions (postinfective) (principal); Z88.2 Allergy status to sulfonamides; Z79.899 Other long term (current) drug therapy; Z90.710 Acquired absence of both cervix and uterus; Z90.49 Acquired absence of other specified parts of digestive tract; Z98.890 Other specified postprocedural states; Z82.49 Family history of ischemic heart disease and other diseases of the circulatory system; Z80.3 Family history of malignant neoplasm of breast
CPT/HCPCS: 36415; 49321; 80053; 81001; 82948; 85025; 87088; J0690; J1100; J2001; J2250; J2270; J2405; J2704; J2710; J3010; J3490; J7120; 88305; A4315; A7000

== ENCOUNTER 2018-11-02 15:21 | Emergency (ER) | payer BC, MEDICARE ==
[~2018-11-02] VITALS: Ht 162.6 cm; Wt 70.5 kg
[~2018-11-02 15:21] MED LIST changes: -BUPIVAcaine/PF 2.5 mg/ml (0.25%) 30ml vial ONE; -ceFAZolin 2gm in dextrose, iso 100 ML IV ONE; -famotidine 20mg tablet PO ONE; -ringers solution, lacted 1,000 ML IV SCH
[2018-11-02 16:11] LABS: BASOPHILS # (AUTO) 0.1 X10'3 (0-0.2); BASOPHILS % (AUTO) 0.9 % (0-1); EOSINOPHILS # (AUTO) 0.2 X10'3 (0-0.9); EOSINOPHILS % (AUTO) 2.7 % (0-6); HEMATOCRIT 42.5 % (35.0-45.0); HEMOGLOBIN 14.7 g/dl (12.0-16.0); LYMPHOCYTES # (AUTO) 1.5 X10'3 (1.1-4.8); MEAN CORPUSCULAR HEMOGLOBIN 31.8 PG (27.0-31.0); MEAN CORPUSCULAR HGB CONC 34.7 g/dL (33.0-36.5); MEAN CORPUSCULAR VOLUME 91.6 FL (78-98); MEAN PLATELET VOLUME 7.4 FL (7.4-10.4); MONOCYTES # (AUTO) 0.5 X10'3 (0-0.9); MONOCYTES % (AUTO) 6.9 % (2-12); NEUTROPHILS # (AUTO) 4.7 X10'3 (1.8-7.7); NEUTROPHILS % (AUTO) 67.5 % (42-75); PLATELET COUNT 286 X10'3 (140-440); RED BLOOD COUNT 4.63 X10'6 (4.20-5.60); RED CELL DISTRIBUTION WIDTH 12.6 % (11.5-14.5); WHITE BLOOD COUNT 6.9 X10'3 (4.5-11.0)
[2018-11-02 16:25] LABS: ALANINE AMINOTRANSFERASE 26 U/L (12-78); ALBUMIN 3.9 G/DL (3.4-5.0); ALKALINE PHOSPHATASE 122 IU/L (46-116); ANION GAP 10 (8-16); ASPARTATE AMINO TRANSFERASE 15 U/L (10-37); BILIRUBIN,TOTAL 0.3 MG/DL (0.1-1.0); BLOOD UREA NITROGEN 13 MG/DL (7-18); BUN/CREATININE RATIO 10.5 (6.6-38.0); CALCIUM 9.6 MG/DL (8.5-10.1); CHLORIDE 103 MMOL/L (99-107); CREATININE 1.24 MG/DL (0.40-0.90); GLUCOSE 106 MG/DL (70-104); POTASSIUM 3.6 MMOL/L (3.5-5.1); SODIUM 139 MMOL/L (135-145); TOTAL CARBON DIOXIDE 26.2 MMOL/L (24-32); eGFR 46 ML/MIN
[2018-11-02] MEDS ORDERED: iohexol 300mg/ml 100ml inj. ONE (16:34)
[2018-11-02] MEDS: normal saline 1000ml 1,000 ML IV ONE (16:39)
[2018-11-02] MEDS: ketorolac trometh. 30mg/ml inj. IV ONE (16:40)
[2018-11-02 16:55] LABS: PARTIAL THROMBOPLASTIN TIME 27 SECONDS (22-32)
[2018-11-02] MEDS: ondansetron/PF 4mg/2ml inj IV ONE (17:08)
--- NOTE | 2018-11-02 17:09 | NUR ---
zofran was given aabout an half hour ago but did not scan inadvertly
[2018-11-02 17:57] VITALS: BP 108/69
--- NOTE | 2018-11-02 17:59 | NUR ---
states still a little nauseated but better than before the zofran
[2018-11-02 18:29] LABS: CLARITY,URINE SLIGHTLY CLOUDY (Clear); COLOR,URINE YELLOW (Yellow); GLUCOSE, URINE NEGATIVE (Neg); KETONES,URINE NEGATIVE (Neg); LEUKOCYTE ESTERASE ,URINE TRACE (Neg); NITRITES, URINE NEGATIVE (Neg); OCCULT BLOOD,URINE NEGATIVE (Neg); PROTEIN,URINE NEGATIVE (Neg); UROBILINOGEN,URINE 0.2 E.U/dL (0.2-1.0)
[2018-11-02 18:33] LABS: UA COLLECTION TYPE CLN CATCH MIDSTREAM
[2018-11-02 18:42] LABS: BACTERIA,URINE 1+ /HPF (Neg); MUCUS STRANDS MODERATE /LPF (Neg); RBC,URINE 0-2 /HPF (0-2); SQUAMOUS EPITHELIAL CELL,UR MODERATE /LPF (FEW); WBC,URINE 0-4 /HPF (0-4)
--- NOTE | 2018-11-03 13:29 | NUR ---
Spoke with Dr. erickson regarding positive blood culture for gram positive cocci in clusters, she stated to hold off until sensitivity resulted.
== END 2018-11-02 18:36 | disposition home or self-care (01) ==
LOC: ER 15:22
DX: T81.89XA Other complications of procedures, not elsewhere classified, initial encounter (principal); R10.32 Left lower quadrant pain; R19.7 Diarrhea, unspecified; N18.9 Chronic kidney disease, unspecified; Z90.49 Acquired absence of other specified parts of digestive tract; Z90.710 Acquired absence of both cervix and uterus; Z98.890 Other specified postprocedural states; Z88.2 Allergy status to sulfonamides; Z91.018 Allergy to other foods; Z88.8 Allergy status to other drugs, medicaments and biological substances; Z79.899 Other long term (current) drug therapy; Y83.8 Other surgical procedures as the cause of abnormal reaction of the patient, or of later complication, without mention of misadventure at the time of the procedure; Y92.89 Other specified places as the place of occurrence of the external cause
CPT/HCPCS: 36415; 71045; 74177; 80053; 81001; 83605; 85025; 85610; 85730; 87040; 87088; 96361; 96374; 96375; 99284; J1885; J2405; J7030; Q9967; 87077; 87186

== ENCOUNTER 2018-11-16 20:16 | Emergency (ER) | payer BC, MEDICARE ==
[~2018-11-16] VITALS: Ht 162.6 cm; Wt 70.4 kg
[2018-11-16 21:21] LABS: CLARITY,URINE CLEAR (Clear); COLOR,URINE YELLOW (Yellow); GLUCOSE, URINE NEGATIVE (Neg); KETONES,URINE NEGATIVE (Neg); LEUKOCYTE ESTERASE ,URINE NEGATIVE (Neg); NITRITES, URINE NEGATIVE (Neg); OCCULT BLOOD,URINE NEGATIVE (Neg); PROTEIN,URINE NEGATIVE (Neg); UROBILINOGEN,URINE 0.2 E.U/dL (0.2-1.0)
[2018-11-16 21:30] LABS: BASOPHILS % (AUTO) 0.7 % (0-1); EOSINOPHILS # (AUTO) 0.1 X10'3 (0-0.9); HEMATOCRIT 42.1 % (35.0-45.0); HEMOGLOBIN 14.3 g/dl (12.0-16.0); LYMPHOCYTES # (AUTO) 2.5 X10'3 (1.1-4.8); LYMPHOCYTES % (AUTO) 34.7 % (21-51); MEAN CORPUSCULAR HEMOGLOBIN 31.1 PG (27.0-31.0); MEAN CORPUSCULAR VOLUME 91.4 FL (78-98); MEAN PLATELET VOLUME 7.9 FL (7.4-10.4); MONOCYTES # (AUTO) 0.4 X10'3 (0-0.9); MONOCYTES % (AUTO) 5.9 % (2-12); NEUTROPHILS # (AUTO) 4.1 X10'3 (1.8-7.7); NEUTROPHILS % (AUTO) 56.7 % (42-75); PLATELET COUNT 308 X10'3 (140-440); RED BLOOD COUNT 4.61 X10'6 (4.20-5.60); RED CELL DISTRIBUTION WIDTH 12.4 % (11.5-14.5); WHITE BLOOD COUNT 7.2 X10'3 (4.5-11.0)
[2018-11-16 21:32] LABS: ALANINE AMINOTRANSFERASE 41 U/L (12-78); ALBUMIN 4.1 G/DL (3.4-5.0); ALKALINE PHOSPHATASE 132 IU/L (46-116); ANION GAP 6 (8-16); ASPARTATE AMINO TRANSFERASE 21 U/L (10-37); BILIRUBIN,TOTAL 0.3 MG/DL (0.1-1.0); BLOOD UREA NITROGEN 12 MG/DL (7-18); BUN/CREATININE RATIO 9.4 (6.6-38.0); CALCIUM 9.6 MG/DL (8.5-10.1); CHLORIDE 103 MMOL/L (99-107); CREATININE 1.28 MG/DL (0.40-0.90); GLUCOSE 102 MG/DL (70-104); POTASSIUM 3.6 MMOL/L (3.5-5.1); SODIUM 138 MMOL/L (135-145); TOTAL CARBON DIOXIDE 28.8 MMOL/L (24-32); TOTAL PROTEIN 8.1 G/DL (6.4-8.2); eGFR 45 ML/MIN
[2018-11-16 21:43] LABS: UA COLLECTION TYPE CLN CATCH MIDSTREAM
[2018-11-16] MEDS ORDERED: HYDROmorphone inj. 0.5 MG/0.5 ML DISP.SYRIN IV PRN (23:20)
[2018-11-16] MEDS ORDERED: normal saline 1000ML IV soln IVB ONE (23:20)
[2018-11-16] MEDS ORDERED: ondansetron/PF 4mg/2ml inj IV ONE (23:20)
[2018-11-16] MEDS ORDERED: ketorolac trometh. 30mg/ml inj. IV ONE (23:20)
--- NOTE | 2018-11-16 23:45 | NUR ---
pt returned from CT. warm blanket given for comfort and IV initiated
[2018-11-17] MEDS ORDERED: HYDR-4353 PO (01:12)
[2018-11-17] MEDS ORDERED: KETO10TA2 PO (01:12)
[2018-11-17] MEDS ORDERED: TADA20TA PO (01:12)
[2018-11-17] MEDS ORDERED: ONDA4TAB6 PO (01:12)
[2018-11-17 01:29] VITALS: BP 109/68
== END 2018-11-17 01:33 | disposition home or self-care (01) ==
LOC: ER 20:17
DX: N20.0 Calculus of kidney (principal); N18.9 Chronic kidney disease, unspecified; Z90.49 Acquired absence of other specified parts of digestive tract; Z90.710 Acquired absence of both cervix and uterus; Z98.890 Other specified postprocedural states; Z88.2 Allergy status to sulfonamides; Z88.1 Allergy status to other antibiotic agents; Z91.048 Other nonmedicinal substance allergy status; Z91.018 Allergy to other foods; Z79.899 Other long term (current) drug therapy
CPT/HCPCS: 36415; 74176; 80053; 81003; 85025; 96374; 96375; 99284; J1170; J1885; J2405; J7030

== ENCOUNTER 2019-01-07 11:12 | Emergency (ER) | payer BC, MEDICARE ==
[~2019-01-07] VITALS: Ht 162.6 cm; Wt 70.5 kg
[~2019-01-07 11:12] MED LIST changes: +KETO10TA2 PO; +ONDA4TAB6 PO; +TADA20TA PO
[2019-01-07 12:15] LABS: BASOPHILS # (AUTO) 0.1 X10'3 (0-0.2); EOSINOPHILS # (AUTO) 0.1 X10'3 (0-0.9); EOSINOPHILS % (AUTO) 2.1 % (0-6); HEMATOCRIT 44.8 % (35.0-45.0); LYMPHOCYTES # (AUTO) 1.7 X10'3 (1.1-4.8); LYMPHOCYTES % (AUTO) 28.2 % (21-51); MEAN CORPUSCULAR HEMOGLOBIN 31.1 PG (27.0-31.0); MEAN CORPUSCULAR HGB CONC 33.6 g/dL (33.0-36.5); MEAN CORPUSCULAR VOLUME 92.6 FL (78-98); MEAN PLATELET VOLUME 7.5 FL (7.4-10.4); MONOCYTES # (AUTO) 0.4 X10'3 (0-0.9); MONOCYTES % (AUTO) 5.9 % (2-12); NEUTROPHILS # (AUTO) 3.7 X10'3 (1.8-7.7); NEUTROPHILS % (AUTO) 61.8 % (42-75); PLATELET COUNT 286 X10'3 (140-440); RED BLOOD COUNT 4.84 X10'6 (4.20-5.60); RED CELL DISTRIBUTION WIDTH 12.6 % (11.5-14.5)
[2019-01-07 12:23] LABS: CLARITY,URINE SLIGHTLY CLOUDY (Clear); COLOR,URINE YELLOW (Yellow); GLUCOSE, URINE NEGATIVE (Neg); KETONES,URINE NEGATIVE (Neg); LEUKOCYTE ESTERASE ,URINE NEGATIVE (Neg); NITRITES, URINE NEGATIVE (Neg); OCCULT BLOOD,URINE NEGATIVE (Neg); PH,URINE 5.5 (4.8-8.0); PROTEIN,URINE NEGATIVE (Neg); UROBILINOGEN,URINE 0.2 E.U/dL (0.2-1.0)
[2019-01-07 12:25] LABS: ALANINE AMINOTRANSFERASE 38 U/L (12-78); ALBUMIN 4.1 G/DL (3.4-5.0); ALKALINE PHOSPHATASE 112 IU/L (46-116); ANION GAP 8 (8-16); ASPARTATE AMINO TRANSFERASE 18 U/L (10-37); BILIRUBIN,TOTAL 0.4 MG/DL (0.1-1.0); BLOOD UREA NITROGEN 11 MG/DL (7-18); BUN/CREATININE RATIO 9.1 (6.6-38.0); CALCIUM 9.6 MG/DL (8.5-10.1); CHLORIDE 104 MMOL/L (99-107); CREATININE 1.21 MG/DL (0.40-0.90); GLUCOSE 93 MG/DL (70-104); LIPASE 143 U/L (73-393); POTASSIUM 3.7 MMOL/L (3.5-5.1); SODIUM 140 MMOL/L (135-145); TOTAL CARBON DIOXIDE 27.6 MMOL/L (24-32); TOTAL PROTEIN 8.2 G/DL (6.4-8.2); eGFR 48 ML/MIN
[2019-01-07 12:26] LABS: UA COLLECTION TYPE CLN CATCH MIDSTREAM; URINE HCG NEGATIVE (NEG)
[2019-01-07 12:32] LABS: MUCUS STRANDS MANY /LPF (Neg); SQUAMOUS EPITHELIAL CELL,UR MANY /LPF (FEW)
[2019-01-07 12:34] LABS: BACTERIA,URINE 1+ /HPF (Neg); RBC,URINE 0-2 /HPF (0-2); WBC,URINE 0-4 /HPF (0-4)
[2019-01-07] MEDS ORDERED: ketorolac trometh inj. 60 MG/2 ML VIAL IM ONE (12:40)
[2019-01-07] MEDS ORDERED: HYDR-3965 PO (14:24)
[2019-01-07] MEDS ORDERED: HYDROcodone/acetaminophen 5mg/325mg tablet PO ONE (14:25)
[2019-01-07 14:48] VITALS: BP 110/65
== END 2019-01-07 14:58 | disposition home or self-care (01) ==
LOC: ER 11:13
DX: N20.0 Calculus of kidney (principal); R93.5 Abnormal findings on diagnostic imaging of other abdominal regions, including retroperitoneum; N18.9 Chronic kidney disease, unspecified; F31.9 Bipolar disorder, unspecified; Z90.49 Acquired absence of other specified parts of digestive tract; Z90.710 Acquired absence of both cervix and uterus; Z98.890 Other specified postprocedural states; Z88.2 Allergy status to sulfonamides; Z88.8 Allergy status to other drugs, medicaments and biological substances; Z91.018 Allergy to other foods; Z79.899 Other long term (current) drug therapy
CPT/HCPCS: 36415; 74176; 80053; 81001; 81025; 83690; 85025; 85610; 96372; 99284; J1885

== ENCOUNTER 2019-04-05 13:31 | Emergency (ER) | payer BC ==
[~2019-04-05] VITALS: Ht 162.6 cm; Wt 70.5 kg
[2019-04-05 13:36] VITALS: BP 114/67
[2019-04-05] MEDS ORDERED: HYDROcodone/acetaminophen 10/325mg tab PO ONE (15:00)
[2019-04-05] MEDS ORDERED: IBUP-1984 PO (15:18)
== END 2019-04-05 15:37 | disposition home or self-care (01) ==
LOC: ER 13:32
DX: M25.562 Pain in left knee (principal); F39 Unspecified mood [affective] disorder; N18.9 Chronic kidney disease, unspecified; Z87.442 Personal history of urinary calculi; F31.9 Bipolar disorder, unspecified; Z90.710 Acquired absence of both cervix and uterus; Z90.49 Acquired absence of other specified parts of digestive tract; Z98.890 Other specified postprocedural states; Z79.899 Other long term (current) drug therapy; Z88.1 Allergy status to other antibiotic agents; X50.1XXA Overexertion from prolonged static or awkward postures, initial encounter; Y93.89 Activity, other specified; Y92.89 Other specified places as the place of occurrence of the external cause; Y99.8 Other external cause status
CPT/HCPCS: 29505; 73564; 99283

== ENCOUNTER 2019-05-16 13:05 | Inpatient (IN) | payer BC, MEDICARE ==
[~2019-05-16] VITALS: Ht 162.6 cm; Wt 69.1 kg
[2019-05-16 13:45] LABS: BASOPHILS # (AUTO) 0.1 X10'3 (0-0.2); BASOPHILS % (AUTO) 0.7 % (0-1); EOSINOPHILS % (AUTO) 0.1 % (0-6); HEMATOCRIT 42.2 % (35.0-45.0); HEMOGLOBIN 14.6 g/dl (12.0-16.0); MEAN CORPUSCULAR HEMOGLOBIN 31.3 PG (27.0-31.0); MEAN CORPUSCULAR HGB CONC 34.5 g/dL (33.0-36.5); MEAN CORPUSCULAR VOLUME 90.8 FL (78-98); MEAN PLATELET VOLUME 7.5 FL (7.4-10.4); MONOCYTES # (AUTO) 0.4 X10'3 (0-0.9); MONOCYTES % (AUTO) 3.2 % (2-12); NEUTROPHILS # (AUTO) 10.1 X10'3 (1.8-7.7); PLATELET COUNT 309 X10'3 (140-440); RED BLOOD COUNT 4.65 X10'6 (4.20-5.60); RED CELL DISTRIBUTION WIDTH 12.8 % (11.5-14.5); WHITE BLOOD COUNT 11.6 X10'3 (4.5-11.0)
[2019-05-16 13:58] LABS: CLARITY,URINE SLIGHTLY CLOUDY (Clear); COLOR,URINE YELLOW (Yellow); GLUCOSE, URINE NEGATIVE (Neg); KETONES,URINE NEGATIVE (Neg); LEUKOCYTE ESTERASE ,URINE NEGATIVE (Neg); NITRITES, URINE NEGATIVE (Neg); OCCULT BLOOD,URINE SMALL (Neg); PH,URINE 8.5 (4.8-8.0); PROTEIN,URINE NEGATIVE (Neg); UA COLLECTION TYPE CLN CATCH MIDSTREAM; URINE HCG NEGATIVE (NEG); UROBILINOGEN,URINE 0.2 E.U/dL (0.2-1.0)
[2019-05-16 14:06] LABS: MUCUS STRANDS FEW /LPF (Neg)
[2019-05-16 14:08] LABS: WBC,URINE 0-4 /HPF (0-4)
[2019-05-16 14:08] LABS: ALANINE AMINOTRANSFERASE 56 U/L (12-78); ALBUMIN 4.5 G/DL (3.4-5.0); ALBUMIN/GLOBULIN RATIO 1.1 (1.1-1.5); ALKALINE PHOSPHATASE 115 IU/L (46-116); ANION GAP 9 (8-16); ASPARTATE AMINO TRANSFERASE 39 U/L (10-37); BILIRUBIN,TOTAL 0.6 MG/DL (0.1-1.0); BLOOD UREA NITROGEN 18 MG/DL (7-18); BUN/CREATININE RATIO 12.2 (6.6-38.0); CALCIUM 9.8 MG/DL (8.5-10.1); CHLORIDE 101 MMOL/L (99-107); CREATININE 1.47 MG/DL (0.40-0.90); GLUCOSE 131 MG/DL (70-104); LIPASE < 50 U/L (73-393); POTASSIUM 4.6 MMOL/L (3.5-5.1); SODIUM 137 MMOL/L (135-145); TOTAL CARBON DIOXIDE 26.7 MMOL/L (24-32); TOTAL PROTEIN 8.5 G/DL (6.4-8.2); eGFR 38 ML/MIN
[2019-05-16 14:09] LABS: BACTERIA,URINE FEW /HPF (Neg)
[2019-05-16 14:17] LABS: SQUAMOUS EPITHELIAL CELL,UR MODERATE /LPF (FEW)
[2019-05-16] MEDS ORDERED: ondansetron/PF 4mg/2ml inj IV ONE (14:50)
[2019-05-16] MEDS ORDERED: normal saline 1000ML IV soln IV ONE (14:50)
[2019-05-16] MEDS: morphine 4 MG/ML inj SYRINge IV PRN ×3 (15:09→16:21)
--- NOTE | 2019-05-16 15:28 | NUR ---
awaiting optoelectronics engineer to take patient for ct.
--- NOTE | 2019-05-16 15:40 | NUR ---
patient to ct.
[2019-05-16] MEDS ORDERED: ketorolac trometh. 30mg/ml inj. IV ONE (16:00)
[2019-05-16] MEDS ORDERED: morphine 4 MG/ML inj SYRINge IV ONE (16:20)
[2019-05-16] MEDS ORDERED: normal saline 1000ml 1,000 ML IV SCH (16:29)
[2019-05-16] MEDS ORDERED: diphenhydrAMINE 25mg capsule PO PRN (16:30)
[2019-05-16] MEDS ORDERED: acetaminophen 650mg rectal suppository RC PRN (16:30)
[2019-05-16] MEDS ORDERED: morphine 2 MG/ML inj. syringe IV PRN ×2 (16:30)
[2019-05-16] MEDS ORDERED: magnesium hydroxide 30ml (MOM) UD suspension PO PRN (16:30)
[2019-05-16] MEDS ORDERED: mag hydrox/Alum hydrox/simeth 30ml oral suspension PO PRN (16:30)
[2019-05-16] MEDS ORDERED: magnesium Cl slow-release 64mg tablet PO PRN (16:30)
[2019-05-16] MEDS ORDERED: magnesium 4gm in 100ml NS 100 ML IV PRN (16:30)
[2019-05-16] MEDS ORDERED: potassium CL 10mEq/100ml bag 100 ML IV PRN ×2 (16:30)
[2019-05-16] MEDS ORDERED: acetaminophen 325mg tablet PO PRN ×2 (16:30)
[2019-05-16] MEDS: K and/or MAG REPLACEMENT MC SCH (16:30)
[2019-05-16] MEDS ORDERED: potassium Cl 20 mEq SR tablet PO PRN ×2 (16:30)
[2019-05-16] MEDS ORDERED: bisacodyl 10mg suppository rectal RC PRN (16:30)
[2019-05-16] MEDS ORDERED: metoclopramide 5 mg/ml inj IV PRN (16:30)
[2019-05-16] MEDS ORDERED: magnesium 2GM in 50ml NS 50 ML IV PRN (16:30)
--- NOTE | 2019-05-16 17:00 | NUR ---
GOT REPORT FROM LAWRENCE LYONS FROM ER
--- NOTE | 2019-05-16 18:15 | NUR ---
Problems reprioritized. Patient report given, questions answered & plan of care reviewed with LAWRENCE AMBROSE.
--- NOTE | 2019-05-16 18:53 | NUR ---
Patient in room [facility]. I have received report from Phyllis BRAVO and had the opportunity to ask questions and assume patient care.
[2019-05-16] MEDS: CefTRIAXone/D5W-Rocephin 1gm 50 ML IV SCH (19:02)
[2019-05-16 20:00] VITALS: BP 86/52
[2019-05-16 20:30] VITALS: BP 92/58
[2019-05-16] MEDS: HYDROcodone/acetaminophen 10/325mg tab PO PRN (20:52)
[2019-05-16] MEDS: venlafaxine 25mg tablet PO SCH (20:52)
[2019-05-16] MEDS: dextrose 5%-normal saline 1,000 ML IV SCH (20:53)
[2019-05-17] VITALS (8 sets, daily range): BP systolic 84–110; BP diastolic 40–71
[2019-05-17] MEDS: dextrose 5%-normal saline 1,000 ML IV SCH ×4 (00:35→22:46)
[2019-05-17] MEDS: HYDROcodone/acetaminophen 10/325mg tab PO PRN ×2 (01:59→07:36)
[2019-05-17 06:18] LABS: BASOPHILS # (AUTO) 0.1 X10'3 (0-0.2); BASOPHILS % (AUTO) 1.4 % (0-1); EOSINOPHILS # (AUTO) 0.1 X10'3 (0-0.9); EOSINOPHILS % (AUTO) 1.5 % (0-6); HEMATOCRIT 30.8 % (35.0-45.0); HEMOGLOBIN 10.8 g/dl (12.0-16.0); LYMPHOCYTES # (AUTO) 1.4 X10'3 (1.1-4.8); LYMPHOCYTES % (AUTO) 26.7 % (21-51); MEAN CORPUSCULAR HEMOGLOBIN 31.7 PG (27.0-31.0); MEAN CORPUSCULAR VOLUME 90.7 FL (78-98); MONOCYTES # (AUTO) 0.4 X10'3 (0-0.9); MONOCYTES % (AUTO) 8.6 % (2-12); NEUTROPHILS # (AUTO) 3.2 X10'3 (1.8-7.7); NEUTROPHILS % (AUTO) 61.8 % (42-75); PLATELET COUNT 179 X10'3 (140-440); RED CELL DISTRIBUTION WIDTH 12.6 % (11.5-14.5); WHITE BLOOD COUNT 5.1 X10'3 (4.5-11.0)
--- NOTE | 2019-05-17 06:30 | NUR ---
Patient in room [facility]. I have received report from Valente BRAVO and had the opportunity to ask questions and assume patient care.
--- NOTE | 2019-05-17 06:30 | NUR ---
Patient in room [facility]. I have received report from Charley BRAVO and had the opportunity to ask questions and assume patient care.
[2019-05-17 06:33] LABS: ALANINE AMINOTRANSFERASE 47 U/L (12-78); ALBUMIN 2.8 G/DL (3.4-5.0); ALKALINE PHOSPHATASE 83 IU/L (46-116); ANION GAP 9 (8-16); ASPARTATE AMINO TRANSFERASE 38 U/L (10-37); BILIRUBIN,TOTAL 0.4 MG/DL (0.1-1.0); BLOOD UREA NITROGEN 14 MG/DL (7-18); BUN/CREATININE RATIO 7.4 (6.6-38.0); CALCIUM 7.7 MG/DL (8.5-10.1); CHLORIDE 107 MMOL/L (99-107); CREATININE 1.89 MG/DL (0.40-0.90); GLUCOSE 123 MG/DL (70-104); MAGNESIUM 1.6 MG/DL (1.5-2.4); PHOSPHORUS 3.1 MG/DL (2.3-4.5); POTASSIUM 3.7 MMOL/L (3.5-5.1); SODIUM 141 MMOL/L (135-145); TOTAL CARBON DIOXIDE 25.5 MMOL/L (24-32); TOTAL PROTEIN 5.6 G/DL (6.4-8.2); eGFR 28 ML/MIN
--- NOTE | 2019-05-17 06:45 | NUR ---
Problems reprioritized. Patient report given, questions answered & plan of care reviewed with Valente RN.
[2019-05-17] MEDS: K and/or MAG REPLACEMENT MC SCH (08:00)
[2019-05-17] MEDS: lamoTRIgine 100mg tablet PO SCH (08:20)
[2019-05-17] MEDS: CefTRIAXone/D5W-Rocephin 1gm 50 ML IV SCH (08:20)
[2019-05-17] MEDS: venlafaxine 25mg tablet PO SCH ×3 (08:21→21:36)
[2019-05-17] MEDS: ondansetron/PF 4mg/2ml inj IV PRN (11:24)
[2019-05-17] MEDS: HYDROcodone/acetaminophen 5mg/325mg tablet PO PRN ×2 (12:20→19:00)
--- NOTE | 2019-05-17 13:19 | NUR ---
Student Medication Administration: For this medication-pass time frame, all medication were reviewed, dispensed, administered and documented per hospital policy by Dave Student Nurse.
--- NOTE | 2019-05-17 18:42 | NUR ---
Problems reprioritized. Patient report given, questions answered & plan of care reviewed with Charley BRAVO.
--- NOTE | 2019-05-17 19:38 | NUR ---
Patient in room [facility]. I have received report from Valente BRAVO and had the opportunity to ask questions and assume patient care.
[2019-05-17] MEDS: tamsulosin 0.4mg capsule PO SCH (21:36)
[2019-05-17] MEDS: lactobacillus rhamnosus 10,000 MMU CELLS/CAPSULE PO SCH (21:37)
[2019-05-18] VITALS (17 sets, daily range): BP systolic 107–133; BP diastolic 68–78
[2019-05-18] MEDS: HYDROcodone/acetaminophen 5mg/325mg tablet PO PRN ×4 (04:43→21:09)
[2019-05-18 05:27] LABS: BASOPHILS % (AUTO) 0.7 % (0-1); EOSINOPHILS # (AUTO) 0.1 X10'3 (0-0.9); EOSINOPHILS % (AUTO) 1.8 % (0-6); HEMATOCRIT 33.1 % (35.0-45.0); HEMOGLOBIN 11.3 g/dl (12.0-16.0); LYMPHOCYTES # (AUTO) 1.3 X10'3 (1.1-4.8); LYMPHOCYTES % (AUTO) 21.4 % (21-51); MEAN CORPUSCULAR HEMOGLOBIN 31.4 PG (27.0-31.0); MEAN CORPUSCULAR HGB CONC 34.3 g/dL (33.0-36.5); MEAN CORPUSCULAR VOLUME 91.6 FL (78-98); MEAN PLATELET VOLUME 7.4 FL (7.4-10.4); MONOCYTES # (AUTO) 0.5 X10'3 (0-0.9); MONOCYTES % (AUTO) 7.7 % (2-12); NEUTROPHILS # (AUTO) 4.1 X10'3 (1.8-7.7); NEUTROPHILS % (AUTO) 68.4 % (42-75); PLATELET COUNT 185 X10'3 (140-440); RED BLOOD COUNT 3.61 X10'6 (4.20-5.60); RED CELL DISTRIBUTION WIDTH 12.3 % (11.5-14.5); WHITE BLOOD COUNT 5.9 X10'3 (4.5-11.0)
[2019-05-18 05:34] LABS: ALANINE AMINOTRANSFERASE 93 U/L (12-78); ALBUMIN 3.2 G/DL (3.4-5.0); ALKALINE PHOSPHATASE 112 IU/L (46-116); ANION GAP 10 (8-16); ASPARTATE AMINO TRANSFERASE 76 U/L (10-37); BILIRUBIN,TOTAL 0.4 MG/DL (0.1-1.0); BLOOD UREA NITROGEN 6 MG/DL (7-18); BUN/CREATININE RATIO 4.1 (6.6-38.0); CALCIUM 8.2 MG/DL (8.5-10.1); CHLORIDE 107 MMOL/L (99-107); CREATININE 1.48 MG/DL (0.40-0.90); GLUCOSE 119 MG/DL (70-104); MAGNESIUM 1.7 MG/DL (1.5-2.4); PHOSPHORUS 2.7 MG/DL (2.3-4.5); POTASSIUM 3.6 MMOL/L (3.5-5.1); SODIUM 142 MMOL/L (135-145); TOTAL CARBON DIOXIDE 24.6 MMOL/L (24-32); TOTAL PROTEIN 6.5 G/DL (6.4-8.2); eGFR 38 ML/MIN
[2019-05-18] MEDS: dextrose 5%-normal saline 1,000 ML IV SCH ×3 (05:39→21:08)
--- NOTE | 2019-05-18 06:41 | NUR ---
Problems reprioritized. Patient report given, questions answered & plan of care reviewed with Vicky BRAVO.
--- NOTE | 2019-05-18 06:43 | NUR ---
Patient in room [facility]. I have received report from Charley BRAVO and had the opportunity to ask questions and assume patient care.
[2019-05-18] MEDS: CefTRIAXone/D5W-Rocephin 1gm 50 ML IV SCH (08:10)
[2019-05-18] MEDS: venlafaxine 25mg tablet PO SCH ×3 (08:11→21:09)
[2019-05-18] MEDS: lamoTRIgine 100mg tablet PO SCH (08:12)
[2019-05-18] MEDS: lactobacillus rhamnosus 10,000 MMU CELLS/CAPSULE PO SCH ×2 (08:13→21:10)
[2019-05-18] MEDS: K and/or MAG REPLACEMENT MC SCH (08:23)
[2019-05-18] MEDS: ondansetron/PF 4mg/2ml inj IV PRN (10:26)
--- NOTE | 2019-05-18 16:20 | NUR ---
Student documentation: I have reviewed all interventions, assessments performed and documented by Dave TAYLOR
--- NOTE | 2019-05-18 16:26 | NUR ---
Student Medication Administration: medication was reviewed, dispensed, administered and documented per hospital policy by Dave TAYLOR
--- NOTE | 2019-05-18 17:39 | NUR ---
patient taken to OR at 1830. Pt stable. V/S bp 117/78, hR 85 Resp 16 Temp 98.
[2019-05-18] MEDS ORDERED: ePHEDrine 50MG/ML INJ. ONE (17:41)
[2019-05-18] MEDS ORDERED: sevoflurane 250ml liquid IH ONE (17:41)
[2019-05-18] MEDS ORDERED: midazolam 2 mg/2 ml injection ONE (17:48)
[2019-05-18] MEDS ORDERED: fentaNYL /PF 50mcg/ml 5ml ampule ONE (17:48)
--- NOTE | 2019-05-18 18:26 | NUR ---
Problems reprioritized. Patient report given, questions answered & plan of care reviewed with Chrissy Zapata RN.
--- NOTE | 2019-05-18 18:28 | NUR ---
0800 dose of Venlafaxine given. eMAR shows as missing dose.
[2019-05-18] MEDS ORDERED: ondansetron/PF 4mg/2ml inj ONE (18:34)
[2019-05-18] MEDS ORDERED: neostigmine methylsulfate 1 MG/ML 10ml vial ONE (18:34)
[2019-05-18] MEDS ORDERED: LIDOcaine 2% (20mg/ml) 5ml vial ONE (18:34)
[2019-05-18] MEDS ORDERED: rocuronium 10mg/ml inj IV ONE (18:34)
[2019-05-18] MEDS ORDERED: propofol inj 20 ML IV ONE (18:34)
[2019-05-18] MEDS ORDERED: dexamethasone sod phosphate 4mg/ml inj. ONE (18:34)
[2019-05-18] MEDS ORDERED: glycopyrrolate 0.2mg/ml inj ONE (18:34)
--- NOTE | 2019-05-18 18:35 | NUR ---
Patient in room [facility]. I have received report from LAWRENCE Perry,patient in the OR and had the opportunity to ask questions and assume patient care.
[2019-05-18] MEDS ORDERED: sugammadex 200mg/2ml injection IV ONE (18:37)
--- NOTE | 2019-05-18 18:43 | NUR ---
Received from OR via SURGICAL BED , accompanied by Anesthesiologist AMANDEEP and report given by Anesthesiolgist. PATIENT WITH NO DRAINS, NO PAIN, NO COMPLAINTS. 20G PIV IN RIGHT UE RUNNING LR AT 100. VSS. 10L MASK ON WITH 93% SATURATIONS. Addendum: 05/18/19 at 1852 by Luis Acevedo RN, RN Amended: Links added.
[2019-05-18] MEDS ORDERED: ringers solution, lacted 1,000 ML IV SCH (18:46)
[2019-05-18] MEDS ORDERED: ondansetron/PF 4mg/2ml inj IV PRN (18:50)
[2019-05-18] MEDS ORDERED: meperidine/PF 25mg/ml syringe IV PRN ×3 (18:50)
[2019-05-18] MEDS ORDERED: morphine 4 MG/ML inj SYRINge IV PRN ×2 (18:50)
[2019-05-18] MEDS ORDERED: proCHLORperazine 10 MG/2 ml inj IV PRN (18:50)
[2019-05-18] MEDS ORDERED: ipratropium/albuterol 3ml nebule NEB PRN (18:55)
--- NOTE | 2019-05-18 19:01 | NUR ---
Patient in room [facility]. I have received report from LAWRENCE Smith and had the opportunity to ask questions and assume patient care. pt still in RR
--- NOTE | 2019-05-18 19:23 | NUR ---
Report called to receiving nurse. Transferred via SURGICAL BED WITH NO Belongings . Special Issues communicated to receiving SURGICAL nurse.VSS. BED LOW, CALL LIGHT IN REACH. FAMILY AT BEDSIDE AND RN PRESENT TO ACCEPT CARE. Addendum: 05/18/19 at 1932 by Luis Acevedo RN RN Amended: Links added.
[2019-05-18] MEDS: tamsulosin 0.4mg capsule PO SCH (21:10)
[2019-05-19 00:16] VITALS: BP 135/67
[2019-05-19 05:12] LABS: BASOPHILS % (AUTO) 0.2 % (0-1); EOSINOPHILS % (AUTO) 0 % (0-6); HEMATOCRIT 33.9 % (35.0-45.0); HEMOGLOBIN 11.9 g/dl (12.0-16.0); LYMPHOCYTES # (AUTO) 0.6 X10'3 (1.1-4.8); LYMPHOCYTES % (AUTO) 10.5 % (21-51); MEAN CORPUSCULAR HEMOGLOBIN 31.6 PG (27.0-31.0); MEAN CORPUSCULAR HGB CONC 35.1 g/dL (33.0-36.5); MEAN CORPUSCULAR VOLUME 89.9 FL (78-98); MEAN PLATELET VOLUME 7.5 FL (7.4-10.4); MONOCYTES # (AUTO) 0.1 X10'3 (0-0.9); MONOCYTES % (AUTO) 2.2 % (2-12); NEUTROPHILS # (AUTO) 4.8 X10'3 (1.8-7.7); NEUTROPHILS % (AUTO) 87.1 % (42-75); PLATELET COUNT 207 X10'3 (140-440); RED BLOOD COUNT 3.77 X10'6 (4.20-5.60); RED CELL DISTRIBUTION WIDTH 12.6 % (11.5-14.5); WHITE BLOOD COUNT 5.6 X10'3 (4.5-11.0)
[2019-05-19 05:25] LABS: ALANINE AMINOTRANSFERASE 75 U/L (12-78); ALBUMIN 3.3 G/DL (3.4-5.0); ALBUMIN/GLOBULIN RATIO 0.8 (1.1-1.5); ALKALINE PHOSPHATASE 122 IU/L (46-116); ANION GAP 10 (8-16); ASPARTATE AMINO TRANSFERASE 40 U/L (10-37); BILIRUBIN,TOTAL 0.3 MG/DL (0.1-1.0); BLOOD UREA NITROGEN 4 MG/DL (7-18); BUN/CREATININE RATIO 3.9 (6.6-38.0); CALCIUM 8.7 MG/DL (8.5-10.1); CHLORIDE 106 MMOL/L (99-107); CREATININE 1.03 MG/DL (0.40-0.90); GLUCOSE 149 MG/DL (70-104); MAGNESIUM 1.8 MG/DL (1.5-2.4); POTASSIUM 3.8 MMOL/L (3.5-5.1); SODIUM 141 MMOL/L (135-145); TOTAL CARBON DIOXIDE 25.4 MMOL/L (24-32); TOTAL PROTEIN 7.2 G/DL (6.4-8.2); eGFR 57 ML/MIN
--- NOTE | 2019-05-19 06:30 | NUR ---
Problems reprioritized. Patient report given, questions answered & plan of care reviewed with LAWRENCE Perry. Addendum: 05/19/19 at 0630 by Carol Elias RN Amended: Links added.
--- NOTE | 2019-05-19 06:38 | NUR ---
Patient in room [facility]. I have received report from Chrissy Dominguez RN and had the opportunity to ask questions and assume patient care.
[2019-05-19 07:00] VITALS: BP 122/79
[2019-05-19] MEDS: K and/or MAG REPLACEMENT MC SCH (08:00)
[2019-05-19] MEDS: CefTRIAXone/D5W-Rocephin 1gm 50 ML IV SCH (08:12)
[2019-05-19] MEDS: lamoTRIgine 100mg tablet PO SCH (08:12)
[2019-05-19] MEDS: lactobacillus rhamnosus 10,000 MMU CELLS/CAPSULE PO SCH (08:12)
[2019-05-19] MEDS: venlafaxine 25mg tablet PO SCH (08:12)
[2019-05-19] MEDS: dextrose 5%-normal saline 1,000 ML IV SCH (08:14)
[2019-05-19] MEDS: HYDROcodone/acetaminophen 5mg/325mg tablet PO PRN (08:37)
[2019-05-19] MEDS: ondansetron/PF 4mg/2ml inj IV PRN (08:38)
[2019-05-19] MEDS ORDERED: CEFD300C3 PO (10:54)
[2019-05-19] MEDS ORDERED: HYDR-3965 PO (10:54)
--- NOTE | 2019-05-19 12:33 | NUR ---
Patient D/C'd home by Dr. Sandhu. patient alert and oriented on stable condition. IV removed. Discharge and medication instruction given. Patient taken to lobby on W/C , left the hospital via private vehicle accompanied by family.
== END 2019-05-19 12:20 | disposition home or self-care (01) | DRG 661 ==
LOC: ER 13:06 → ED HOLD 16:29 → SUR 3N 17:18
PROVIDERS: ADMIT Family Medicine; ATTEND Hospitalist
PROC: 0T768DZ Dilation of Right Ureter with Intraluminal Device, Via Natural or Artificial Opening Endoscopic (ICD-10-PCS; 2019-05-18)
PROC: BT161ZZ Fluoroscopy of Right Ureter using Low Osmolar Contrast (ICD-10-PCS; 2019-05-18)
PROC: 0TC68ZZ Extirpation of Matter from Right Ureter, Via Natural or Artificial Opening Endoscopic (ICD-10-PCS; principal; 2019-05-18 17:41)
DX: N13.2 Hydronephrosis with renal and ureteral calculous obstruction (principal); N17.0 Acute kidney failure with tubular necrosis; F31.9 Bipolar disorder, unspecified; R39.11 Hesitancy of micturition; N18.9 Chronic kidney disease, unspecified; N95.1 Menopausal and female climacteric states; Z87.442 Personal history of urinary calculi; Z90.49 Acquired absence of other specified parts of digestive tract; Z90.710 Acquired absence of both cervix and uterus; Z88.8 Allergy status to other drugs, medicaments and biological substances
CPT/HCPCS: 96374; 96375; 96376; 99285; Z7506; Z7508; 36415; 74176; 76000; 80053; 81001; 81025; 82948; 83605; 83690; 83735; 84100; 84145; 85025; 87040; 87081; 94640; 94760; A4618; C1758; C1769; C2617; C9399; G0378; J0696; J1100; J1885; J2001; J2175; J2250; J2270; J2405; J2704; J2710; J2765; J3010; J3490; J7042; J7120

== ENCOUNTER 2019-06-11 12:43 | Emergency (ER) | payer BC, MEDICARE ==
[~2019-06-11] VITALS: Ht 162.6 cm; Wt 69.0 kg
[~2019-06-11 12:43] MED LIST changes: +CEFD300C3 PO; +HYDR-3965 PO; -KETO10TA2 PO; -LORA-835 PO; -ONDA4TAB6 PO; -TADA20TA PO
[2019-06-11 13:05] VITALS: BP 108/76
[2019-06-11] MEDS ORDERED: morphine 4 MG/ML inj SYRINge IV PRN (13:10)
[2019-06-11] MEDS ORDERED: normal saline 1000ML IV soln IVB ONE (13:10)
[2019-06-11] MEDS ORDERED: ondansetron/PF 4mg/2ml inj IV ONE (13:10)
[2019-06-11 13:35] LABS: URINE HCG NEGATIVE (NEG)
[2019-06-11 13:39] LABS: CLARITY,URINE SLIGHTLY CLOUDY (Clear); COLOR,URINE YELLOW (Yellow); GLUCOSE, URINE NEGATIVE (Neg); KETONES,URINE NEGATIVE (Neg); LEUKOCYTE ESTERASE ,URINE TRACE (Neg); NITRITES, URINE NEGATIVE (Neg); OCCULT BLOOD,URINE NEGATIVE (Neg); PROTEIN,URINE NEGATIVE (Neg); UROBILINOGEN,URINE 0.2 E.U/dL (0.2-1.0)
[2019-06-11 13:42] LABS: BASOPHILS % (AUTO) 0.4 % (0-1); EOSINOPHILS # (AUTO) 0.2 X10'3 (0-0.9); EOSINOPHILS % (AUTO) 4.4 % (0-6); HEMATOCRIT 39.5 % (35.0-45.0); HEMOGLOBIN 13.6 g/dl (12.0-16.0); LYMPHOCYTES # (AUTO) 1.7 X10'3 (1.1-4.8); LYMPHOCYTES % (AUTO) 42.6 % (21-51); MEAN CORPUSCULAR HEMOGLOBIN 31.2 PG (27.0-31.0); MEAN CORPUSCULAR HGB CONC 34.4 g/dL (33.0-36.5); MEAN CORPUSCULAR VOLUME 90.6 FL (78-98); MEAN PLATELET VOLUME 7.6 FL (7.4-10.4); MONOCYTES # (AUTO) 0.3 X10'3 (0-0.9); NEUTROPHILS # (AUTO) 1.9 X10'3 (1.8-7.7); NEUTROPHILS % (AUTO) 45.6 % (42-75); PLATELET COUNT 249 X10'3 (140-440); RED BLOOD COUNT 4.36 X10'6 (4.20-5.60); RED CELL DISTRIBUTION WIDTH 12.8 % (11.5-14.5); WHITE BLOOD COUNT 4.1 X10'3 (4.5-11.0)
[2019-06-11 13:45] LABS: UA COLLECTION TYPE CLN CATCH MIDSTREAM
[2019-06-11 13:46] LABS: ALANINE AMINOTRANSFERASE 30 U/L (12-78); ALBUMIN 3.8 G/DL (3.4-5.0); ALKALINE PHOSPHATASE 119 IU/L (46-116); ANION GAP 10 (8-16); ASPARTATE AMINO TRANSFERASE 20 U/L (10-37); BILIRUBIN,TOTAL 0.4 MG/DL (0.1-1.0); BLOOD UREA NITROGEN 14 MG/DL (7-18); BUN/CREATININE RATIO 11.7 (6.6-38.0); CHLORIDE 106 MMOL/L (99-107); GLUCOSE 102 MG/DL (70-104); POTASSIUM 4.1 MMOL/L (3.5-5.1); SODIUM 141 MMOL/L (135-145); TOTAL CARBON DIOXIDE 24.8 MMOL/L (24-32); TOTAL PROTEIN 7.5 G/DL (6.4-8.2); eGFR 48 ML/MIN
[2019-06-11 13:57] LABS: MUCUS STRANDS MANY /LPF (Neg); SQUAMOUS EPITHELIAL CELL,UR MANY /LPF (FEW)
[2019-06-11 13:59] LABS: BACTERIA,URINE 1+ /HPF (Neg); CAL OXALATE CRYSTALS FEW /HPF (NEGATIVE); RBC,URINE 0-2 /HPF (0-2)
[2019-06-11] MEDS ORDERED: HYDROcodone/acetaminophen 10/325mg tab PO ONE (15:00)
[2019-06-11] MEDS ORDERED: ketorolac trometh. 30mg/ml inj. IV ONE (15:00)
[2019-06-11] MEDS ORDERED: HYDR-4353 PO (15:04)
== END 2019-06-11 15:19 | disposition home or self-care (01) ==
LOC: ER 12:44
DX: N23 Unspecified renal colic (principal); F31.9 Bipolar disorder, unspecified; N18.9 Chronic kidney disease, unspecified; J02.9 Acute pharyngitis, unspecified; Z90.49 Acquired absence of other specified parts of digestive tract; Z90.710 Acquired absence of both cervix and uterus; Z98.890 Other specified postprocedural states; Z88.2 Allergy status to sulfonamides; Z88.8 Allergy status to other drugs, medicaments and biological substances; Z91.018 Allergy to other foods; Z79.899 Other long term (current) drug therapy
CPT/HCPCS: 36415; 80053; 81001; 81025; 85025; 96374; 96375; 99283; J1885; J2270; J2405; J7030

== ENCOUNTER 2019-06-30 14:40 | Emergency (ER) | payer BC, MEDICARE ==
[~2019-06-30] VITALS: Ht 162.6 cm; Wt 67.0 kg
[~2019-06-30 14:40] MED LIST changes: -CEFD300C3 PO; -HYDR-3965 PO; +HYDR-4353 PO
[2019-06-30 15:09] LABS: CLARITY,URINE CLEAR (Clear); COLOR,URINE YELLOW (Yellow); GLUCOSE, URINE NEGATIVE (Neg); KETONES,URINE NEGATIVE (Neg); LEUKOCYTE ESTERASE ,URINE NEGATIVE (Neg); NITRITES, URINE NEGATIVE (Neg); OCCULT BLOOD,URINE NEGATIVE (Neg); PH,URINE 5.5 (4.8-8.0); PROTEIN,URINE NEGATIVE (Neg); UROBILINOGEN,URINE 0.2 E.U/dL (0.2-1.0)
[2019-06-30 15:13] LABS: UA COLLECTION TYPE CLN CATCH MIDSTREAM
[2019-06-30] MEDS ORDERED: normal saline 1000ML IV soln IVB ONE (15:25)
[2019-06-30] MEDS ORDERED: ondansetron/PF 4mg/2ml inj IV ONE (15:30)
[2019-06-30] MEDS ORDERED: ketorolac trometh. 30mg/ml inj. IV ONE (15:30)
[2019-06-30] MEDS ORDERED: morphine 4 MG/ML inj SYRINge IV ONE (15:30)
[2019-06-30 15:43] LABS: BASOPHILS # (AUTO) 0.1 X10'3 (0-0.2); EOSINOPHILS # (AUTO) 0.1 X10'3 (0-0.9); EOSINOPHILS % (AUTO) 2.6 % (0-6); HEMATOCRIT 41.8 % (35.0-45.0); HEMOGLOBIN 14.3 g/dl (12.0-16.0); LYMPHOCYTES % (AUTO) 35.2 % (21-51); MEAN CORPUSCULAR HEMOGLOBIN 30.6 PG (27.0-31.0); MEAN CORPUSCULAR HGB CONC 34.2 g/dL (33.0-36.5); MEAN CORPUSCULAR VOLUME 89.5 FL (78-98); MEAN PLATELET VOLUME 7.6 FL (7.4-10.4); MONOCYTES # (AUTO) 0.4 X10'3 (0-0.9); MONOCYTES % (AUTO) 6.9 % (2-12); NEUTROPHILS # (AUTO) 3.1 X10'3 (1.8-7.7); NEUTROPHILS % (AUTO) 54.3 % (42-75); PLATELET COUNT 272 X10'3 (140-440); RED BLOOD COUNT 4.67 X10'6 (4.20-5.60); RED CELL DISTRIBUTION WIDTH 12.6 % (11.5-14.5); WHITE BLOOD COUNT 5.6 X10'3 (4.5-11.0)
[2019-06-30] MEDS ORDERED: FLO0.4C PO (16:10)
[2019-06-30] MEDS ORDERED: IBUP-1986 PO (16:10)
[2019-06-30] MEDS ORDERED: HYDR-4353 PO (16:10)
[2019-06-30 16:12] LABS: ALANINE AMINOTRANSFERASE 62 U/L (12-78); ALBUMIN 4.2 G/DL (3.4-5.0); ALBUMIN/GLOBULIN RATIO 1.2 (1.1-1.5); ALKALINE PHOSPHATASE 117 IU/L (46-116); ANION GAP 5 (8-16); ASPARTATE AMINO TRANSFERASE 50 U/L (10-37); BILIRUBIN,TOTAL 0.5 MG/DL (0.1-1.0); BLOOD UREA NITROGEN 15 MG/DL (7-18); CALCIUM 9.4 MG/DL (8.5-10.1); CHLORIDE 105 MMOL/L (99-107); CREATININE 1.15 MG/DL (0.40-0.90); GLUCOSE 105 MG/DL (70-104); POTASSIUM 3.8 MMOL/L (3.5-5.1); SODIUM 139 MMOL/L (135-145); TOTAL CARBON DIOXIDE 28.6 MMOL/L (24-32); TOTAL PROTEIN 7.6 G/DL (6.4-8.2); eGFR 50 ML/MIN
[2019-06-30 16:31] VITALS: BP 94/64
== END 2019-06-30 16:32 | disposition home or self-care (01) ==
LOC: ER 14:43
DX: N23 Unspecified renal colic (principal)
CPT/HCPCS: 36415; 80053; 81003; 85025; 96374; 96375; 99283; J1885; J2270; J2405; J7030

== ENCOUNTER 2019-07-27 16:38 | Emergency (ER) | payer BC, MEDICARE ==
[~2019-07-27] VITALS: Ht 162.6 cm; Wt 67.0 kg
[~2019-07-27 16:38] MED LIST changes: +FLO0.4C PO; -HYDR-4353 PO; +IBUP-1986 PO
[2019-07-27 17:15] LABS: BASOPHILS % (AUTO) 0.6 % (0-1); EOSINOPHILS # (AUTO) 0.2 X10'3 (0-0.9); EOSINOPHILS % (AUTO) 2.7 % (0-6); HEMATOCRIT 43.8 % (35.0-45.0); HEMOGLOBIN 14.9 g/dl (12.0-16.0); LYMPHOCYTES # (AUTO) 1.8 X10'3 (1.1-4.8); LYMPHOCYTES % (AUTO) 28.4 % (21-51); MEAN CORPUSCULAR HEMOGLOBIN 30.8 PG (27.0-31.0); MEAN CORPUSCULAR HGB CONC 34.1 g/dL (33.0-36.5); MEAN CORPUSCULAR VOLUME 90.4 FL (78-98); MEAN PLATELET VOLUME 7.4 FL (7.4-10.4); MONOCYTES # (AUTO) 0.4 X10'3 (0-0.9); MONOCYTES % (AUTO) 5.8 % (2-12); NEUTROPHILS % (AUTO) 62.5 % (42-75); PLATELET COUNT 335 X10'3 (140-440); RED BLOOD COUNT 4.84 X10'6 (4.20-5.60); RED CELL DISTRIBUTION WIDTH 12.8 % (11.5-14.5); WHITE BLOOD COUNT 6.4 X10'3 (4.5-11.0)
[2019-07-27 17:19] LABS: CLARITY,URINE CLEAR (Clear); COLOR,URINE YELLOW (Yellow); GLUCOSE, URINE NEGATIVE (Neg); KETONES,URINE NEGATIVE (Neg); LEUKOCYTE ESTERASE ,URINE NEGATIVE (Neg); NITRITES, URINE NEGATIVE (Neg); OCCULT BLOOD,URINE NEGATIVE (Neg); PH,URINE 5.5 (4.8-8.0); PROTEIN,URINE NEGATIVE (Neg); UROBILINOGEN,URINE 0.2 E.U/dL (0.2-1.0)
[2019-07-27 17:22] LABS: URINE HCG NEGATIVE (NEG)
[2019-07-27 17:25] LABS: UA COLLECTION TYPE CLN CATCH MIDSTREAM
[2019-07-27 17:33] LABS: ALANINE AMINOTRANSFERASE 51 U/L (12-78); ALBUMIN 4.3 G/DL (3.4-5.0); ALKALINE PHOSPHATASE 132 IU/L (46-116); ANION GAP 8 (8-16); ASPARTATE AMINO TRANSFERASE 23 U/L (10-37); BILIRUBIN,TOTAL 0.5 MG/DL (0.1-1.0); BLOOD UREA NITROGEN 13 MG/DL (7-18); BUN/CREATININE RATIO 10.8 (6.6-38.0); CALCIUM 10.2 MG/DL (8.5-10.1); CHLORIDE 104 MMOL/L (99-107); GLUCOSE 98 MG/DL (70-104); LIPASE 71 U/L (73-393); POTASSIUM 3.7 MMOL/L (3.5-5.1); SODIUM 142 MMOL/L (135-145); TOTAL CARBON DIOXIDE 30.5 MMOL/L (24-32); TOTAL PROTEIN 8.4 G/DL (6.4-8.2); eGFR 48 ML/MIN
[2019-07-27] MEDS ORDERED: normal saline 1000ML IV soln IVB ONE (18:15)
[2019-07-27] MEDS ORDERED: ondansetron/PF 4mg/2ml inj IV ONE (18:15)
[2019-07-27] MEDS ORDERED: ketorolac tromethamine 15mg/ml inj. IV ONE (18:15)
[2019-07-27 19:32] VITALS: BP 113/72
== END 2019-07-27 19:33 | disposition home or self-care (01) ==
LOC: ER 16:38
DX: N20.0 Calculus of kidney (principal); N18.9 Chronic kidney disease, unspecified; F31.9 Bipolar disorder, unspecified; Z90.49 Acquired absence of other specified parts of digestive tract; Z90.710 Acquired absence of both cervix and uterus; Z98.890 Other specified postprocedural states; Z88.2 Allergy status to sulfonamides; Z88.1 Allergy status to other antibiotic agents; Z91.018 Allergy to other foods; Z91.048 Other nonmedicinal substance allergy status; Z79.899 Other long term (current) drug therapy
CPT/HCPCS: 36415; 74176; 80053; 81003; 81025; 83690; 85025; 96374; 96375; 99284; J1885; J2405; J7030

== ENCOUNTER → 2019-08-09 | Day surgery (SDC) | payer BC, MEDICARE ==
[2019-08-07 10:43] LABS: BASOPHILS # (AUTO) 0.1 X10'3 (0-0.2); BASOPHILS % (AUTO) 1.2 % (0-1); EOSINOPHILS # (AUTO) 0.2 X10'3 (0-0.9); EOSINOPHILS % (AUTO) 2.7 % (0-6); LYMPHOCYTES # (AUTO) 1.9 X10'3 (1.1-4.8); LYMPHOCYTES % (AUTO) 32.8 % (21-51); MEAN CORPUSCULAR HEMOGLOBIN 30.3 PG (27.0-31.0); MEAN CORPUSCULAR HGB CONC 33.9 g/dL (33.0-36.5); MEAN CORPUSCULAR VOLUME 89.5 FL (78-98); MEAN PLATELET VOLUME 7.5 FL (7.4-10.4); MONOCYTES # (AUTO) 0.3 X10'3 (0-0.9); NEUTROPHILS # (AUTO) 3.3 X10'3 (1.8-7.7); NEUTROPHILS % (AUTO) 57.3 % (42-75); PRE OP HEMATOCRIT 43.9 % (35.0-45.0); PRE OP HEMOGLOBIN 14.9 g/dL (12.0-16.0); PRE OP PLATELET COUNT 307 X10'3 (140-440); RED BLOOD COUNT 4.91 X10'6 (4.20-5.60); RED CELL DISTRIBUTION WIDTH 12.6 % (11.5-14.5)
[2019-08-07 10:47] LABS: CLARITY,URINE SLIGHTLY CLOUDY (Clear); COLOR,URINE YELLOW (Yellow); GLUCOSE, URINE NEGATIVE (Neg); KETONES,URINE NEGATIVE (Neg); LEUKOCYTE ESTERASE ,URINE NEGATIVE (Neg); NITRITES, URINE NEGATIVE (Neg); OCCULT BLOOD,URINE NEGATIVE (Neg); PH,URINE 5.5 (4.8-8.0); PROTEIN,URINE NEGATIVE (Neg); UROBILINOGEN,URINE 0.2 E.U/dL (0.2-1.0)
[2019-08-07 10:52] LABS: UA COLLECTION TYPE NON-SPECIFIED
[2019-08-07 10:52] LABS: ALBUMIN 4.3 G/DL (3.4-5.0); ALBUMIN/GLOBULIN RATIO 1.1 (1.1-1.5); ALKALINE PHOSPHATASE 111 IU/L (46-116); BLOOD UREA NITROGEN 14 MG/DL (7-18); BUN/CREATININE RATIO 11.7 (6.6-38.0); CALCIUM 9.4 MG/DL (8.5-10.1); CHLORIDE 105 MMOL/L (99-107); PRE OP ALT 24 U/L (30-65); PRE OP ANION GAP 9 (8-16); PRE OP AST 20 U/L (10-37); PRE OP BILIRUB, TOTAL 0.4 MG/DL (0.0-1.0); PRE OP GLUCOSE 109 MG/DL (70-104); PRE OP POTASSIUM 4.3 MMOL/L (3.4-5.1); PRE OP SODIUM 144 MMOL/L (135-145); TOTAL CARBON DIOXIDE 30.4 MMOL/L (24-32); TOTAL PROTEIN 8.1 G/DL (6.4-8.2); eGFR 48 ML/MIN
[2019-08-07 11:01] LABS: BACTERIA,URINE 1+ /HPF (Neg); MUCUS STRANDS MANY /LPF (Neg); RBC,URINE NONE SEEN /HPF (0-2); SQUAMOUS EPITHELIAL CELL,UR MANY /LPF (FEW); WBC,URINE 0-4 /HPF (0-4)
[2019-08-09] VITALS (7 sets, daily range): BP systolic 102–117; BP diastolic 56–76
[~2019-08-09] VITALS: Ht 162.6 cm; Wt 68.0 kg
[~2019-08-09] MED LIST changes: +BUPIVAcaine/PF 2.5 mg/ml (0.25%) 30ml vial ONE; -FLO0.4C PO; +HYDROcodone/acetaminophen 10/325mg tab PO ONE; +IBUP-1985 PO; -IBUP-1986 PO; +LIDOcaine 2% (20mg/ml) 5ml vial ONE; +ceFAZolin 1000mg inj ONE; +cefazolin/dext.iso 2gm/50ml 50 ML IV ONE; +dexamethasone sod phosphate 4mg/ml inj. ONE; +famotidine 20mg tablet PO ONE; +fentaNYL /PF 50mcg/ml 5ml ampule ONE; +glycopyrrolate 0.2mg/ml inj ONE; +meperidine/PF 25mg/ml syringe IV PRN; +midazolam 2 mg/2 ml injection ONE; +morphine 2 MG/ML inj. syringe IV PRN; +morphine 4 MG/ML inj SYRINge IV PRN; +neostigmine methylsulfate 1 MG/ML 10ml vial ONE; +ondansetron/PF 4mg/2ml inj IV PRN; +ondansetron/PF 4mg/2ml inj ONE; +proCHLORperazine 10 MG/2 ml inj IV PRN; +propofol inj 20 ML IV ONE; +ringers solution, lacted 1,000 ML IV SCH; +rocuronium 10mg/ml inj IV ONE
--- NOTE | 2019-08-09 17:19 | NUR ---
AWAKE AND ORIENTED. VITALS STABLE. DRESSINGS DI. STATES PAIN IMPROVING. HOME WITH HER SPOUSE AT THIS TYIME.
== END | disposition home or self-care (01) ==
LOC: PAS 10:22
PROVIDERS: ATTEND Surgery
DX: R10.2 Pelvic and perineal pain (principal); K66.0 Peritoneal adhesions (postprocedural) (postinfection); F31.9 Bipolar disorder, unspecified; Z87.442 Personal history of urinary calculi; Z88.2 Allergy status to sulfonamides; Z79.899 Other long term (current) drug therapy; Z90.710 Acquired absence of both cervix and uterus; Z98.890 Other specified postprocedural states; Z90.49 Acquired absence of other specified parts of digestive tract; Z82.49 Family history of ischemic heart disease and other diseases of the circulatory system; Z80.3 Family history of malignant neoplasm of breast; Z91.09 Other allergy status, other than to drugs and biological substances; Z88.8 Allergy status to other drugs, medicaments and biological substances
CPT/HCPCS: 36415; 49320; 80053; 81001; 82948; 85025; J0690; J1100; J2001; J2175; J2250; J2405; J2704; J2710; J3010; J3490; A4215; A4314; A4618; A7000; J7120

== ENCOUNTER 2019-09-15 11:14 | Emergency (ER) | payer BC ==
[~2019-09-15] VITALS: Ht 162.6 cm; Wt 69.5 kg
[~2019-09-15 11:14] MED LIST changes: -BUPIVAcaine/PF 2.5 mg/ml (0.25%) 30ml vial ONE; -HYDROcodone/acetaminophen 10/325mg tab PO ONE; -LIDOcaine 2% (20mg/ml) 5ml vial ONE; -ceFAZolin 1000mg inj ONE; -cefazolin/dext.iso 2gm/50ml 50 ML IV ONE; -dexamethasone sod phosphate 4mg/ml inj. ONE; -famotidine 20mg tablet PO ONE; -fentaNYL /PF 50mcg/ml 5ml ampule ONE; -glycopyrrolate 0.2mg/ml inj ONE; -meperidine/PF 25mg/ml syringe IV PRN; -midazolam 2 mg/2 ml injection ONE; -morphine 2 MG/ML inj. syringe IV PRN; -morphine 4 MG/ML inj SYRINge IV PRN; -neostigmine methylsulfate 1 MG/ML 10ml vial ONE; -ondansetron/PF 4mg/2ml inj IV PRN; -ondansetron/PF 4mg/2ml inj ONE; -proCHLORperazine 10 MG/2 ml inj IV PRN; -propofol inj 20 ML IV ONE; -ringers solution, lacted 1,000 ML IV SCH; -rocuronium 10mg/ml inj IV ONE
--- NOTE | 2019-09-15 11:29 | NUR ---
received patient from ER, sitting in bed resipirations even and unlabored
[2019-09-15] MEDS ORDERED: QUET50TA PO (11:55)
--- NOTE | 2019-09-15 12:00 | NUR ---
sitting in bed resipirations even and unlabored
[2019-09-15 12:04] LABS: CLARITY,URINE CLEAR (Clear); COLOR,URINE YELLOW (Yellow); GLUCOSE, URINE NEGATIVE (Neg); KETONES,URINE NEGATIVE (Neg); LEUKOCYTE ESTERASE ,URINE SMALL (Neg); NITRITES, URINE NEGATIVE (Neg); OCCULT BLOOD,URINE NEGATIVE (Neg); PH,URINE 5.5 (4.8-8.0); PROTEIN,URINE NEGATIVE (Neg); UROBILINOGEN,URINE 0.2 E.U/dL (0.2-1.0)
[2019-09-15 12:07] LABS: UA COLLECTION TYPE CLN CATCH MIDSTREAM
[2019-09-15 12:10] LABS: MUCUS STRANDS FEW /LPF (Neg); SQUAMOUS EPITHELIAL CELL,UR MANY /LPF (FEW)
[2019-09-15 12:11] LABS: CAL OXALATE CRYSTALS 1+ /HPF (NEGATIVE)
[2019-09-15 12:13] LABS: BACTERIA,URINE 1+ /HPF (Neg); RBC,URINE 0-2 /HPF (0-2); WBC,URINE 0-4 /HPF (0-4)
[2019-09-15] MEDS ORDERED: ziprasidone IM 20mg inj **IM only IM ONE (12:25)
--- NOTE | 2019-09-15 12:45 | NUR ---
breaking primary RN, pt has just rcvd her geodone, accepted care from primary without difficulty, no s/s of agitation, she is, however, tearful, spoke with her for several mins, reassuring her, as there is a lot going on in the worls in addition to her usual stress load
[2019-09-15 13:00] LABS: BASOPHILS # (AUTO) 0.1 X10'3 (0-0.2); EOSINOPHILS # (AUTO) 0.1 X10'3 (0-0.9); EOSINOPHILS % (AUTO) 2.1 % (0-6); HEMATOCRIT 44.1 % (35.0-45.0); HEMOGLOBIN 14.9 g/dl (12.0-16.0); LYMPHOCYTES # (AUTO) 1.8 X10'3 (1.1-4.8); LYMPHOCYTES % (AUTO) 33.2 % (21-51); MEAN CORPUSCULAR HEMOGLOBIN 30.9 PG (27.0-31.0); MEAN CORPUSCULAR HGB CONC 33.7 g/dL (33.0-36.5); MEAN CORPUSCULAR VOLUME 91.4 FL (78-98); MEAN PLATELET VOLUME 7.4 FL (7.4-10.4); MONOCYTES # (AUTO) 0.4 X10'3 (0-0.9); MONOCYTES % (AUTO) 6.6 % (2-12); NEUTROPHILS # (AUTO) 3.2 X10'3 (1.8-7.7); NEUTROPHILS % (AUTO) 57.1 % (42-75); PLATELET COUNT 273 X10'3 (140-440); RED BLOOD COUNT 4.83 X10'6 (4.20-5.60); WHITE BLOOD COUNT 5.6 X10'3 (4.5-11.0)
[2019-09-15 13:11] LABS: ALANINE AMINOTRANSFERASE 58 U/L (12-78); ALKALINE PHOSPHATASE 112 IU/L (46-116); ANION GAP 7 (8-16); ASPARTATE AMINO TRANSFERASE 36 U/L (10-37); BILIRUBIN,TOTAL 0.3 MG/DL (0.1-1.0); BLOOD UREA NITROGEN 15 MG/DL (7-18); BUN/CREATININE RATIO 12.9 (6.6-38.0); CALCIUM 9.5 MG/DL (8.5-10.1); CHLORIDE 105 MMOL/L (99-107); CREATININE 1.16 MG/DL (0.40-0.90); ETHANOL < 0.010 GM/DL (0.0-0.010); GLUCOSE 106 MG/DL (70-104); POTASSIUM 4.2 MMOL/L (3.5-5.1); SODIUM 141 MMOL/L (135-145); TOTAL CARBON DIOXIDE 29.2 MMOL/L (24-32); eGFR 50 ML/MIN
--- NOTE | 2019-09-15 13:19 | NUR ---
received patient from ER, sitting in bed resipirations even and unlabored
--- NOTE | 2019-09-15 13:23 | NUR ---
PACKET FAXED TO [facility]
[2019-09-15 13:52] LABS: URINE HCG NEGATIVE (NEG)
[2019-09-15 14:04] LABS: URINE AMPHETAMINE SCREEN NEGATIVE (Neg); URINE BARBITUATE SCREEN NEGATIVE (Neg); URINE BENZODIAZEPINES SCREEN NEGATIVE (Neg); URINE CANNABINOID SCREEN NEGATIVE (Neg); URINE COCAINE SCREEN NEGATIVE (Neg); URINE METHADONE SCREEN NEGATIVE (Neg); URINE OPIATE SCREEN NEGATIVE (Neg); URINE PHENCYCLIDINE SCREEN NEGATIVE (Neg)
--- NOTE | 2019-09-15 14:07 | NUR ---
sitting in bed resipirations even and unlabored
--- NOTE | 2019-09-15 15:11 | NUR ---
Sleeping no s.s. of distress
--- NOTE | 2019-09-15 15:33 | NUR ---
PAGE SENT FOR H PROVIDER TO EVALUATE/ADJUST PT MEDS BEFORE DC.
--- NOTE | 2019-09-15 15:49 | NUR ---
breaking primary RN, pt is laying on her right side, eyes closed, regular breathing observed, appears to be asleep, will continue to monitor
--- NOTE | 2019-09-15 16:05 | NUR ---
sleeping no s.s. of distress
--- NOTE | 2019-09-15 17:01 | NUR ---
sleeping no s.s. of distress
[2019-09-15 17:17] VITALS: BP 135/80
== END 2019-09-15 17:20 | disposition home or self-care (01) ==
LOC: ER 11:15
DX: F31.9 Bipolar disorder, unspecified (principal); F41.1 Generalized anxiety disorder; N18.9 Chronic kidney disease, unspecified; Z90.49 Acquired absence of other specified parts of digestive tract; Z90.710 Acquired absence of both cervix and uterus; Z98.890 Other specified postprocedural states; Z87.891 Personal history of nicotine dependence; Z88.2 Allergy status to sulfonamides; Z88.8 Allergy status to other drugs, medicaments and biological substances; Z91.018 Allergy to other foods; Z79.899 Other long term (current) drug therapy
CPT/HCPCS: 36415; 80053; 80305; 80320; 81001; 81025; 85025; 99284; J3486

== ENCOUNTER 2019-10-24 15:10 | Emergency (ER) | payer BC ==
[~2019-10-24] VITALS: Ht 162.6 cm; Wt 71.4 kg
[~2019-10-24 15:10] MED LIST changes: +QUET50TA PO
[2019-10-24 15:47] LABS: BASOPHILS # (AUTO) 0.1 X10'3 (0-0.2); BASOPHILS % (AUTO) 0.8 % (0-1); EOSINOPHILS # (AUTO) 0.2 X10'3 (0-0.9); EOSINOPHILS % (AUTO) 2.4 % (0-6); HEMATOCRIT 42.7 % (35.0-45.0); HEMOGLOBIN 14.3 g/dl (12.0-16.0); LYMPHOCYTES % (AUTO) 32.4 % (21-51); MEAN CORPUSCULAR HEMOGLOBIN 30.7 PG (27.0-31.0); MEAN CORPUSCULAR HGB CONC 33.5 g/dL (33.0-36.5); MEAN CORPUSCULAR VOLUME 91.6 FL (78-98); MEAN PLATELET VOLUME 7.4 FL (7.4-10.4); MONOCYTES # (AUTO) 0.4 X10'3 (0-0.9); MONOCYTES % (AUTO) 6.7 % (2-12); NEUTROPHILS # (AUTO) 3.6 X10'3 (1.8-7.7); NEUTROPHILS % (AUTO) 57.7 % (42-75); PLATELET COUNT 257 X10'3 (140-440); RED BLOOD COUNT 4.67 X10'6 (4.20-5.60); RED CELL DISTRIBUTION WIDTH 13.2 % (11.5-14.5); WHITE BLOOD COUNT 6.3 X10'3 (4.5-11.0)
[2019-10-24 15:48] LABS: CLARITY,URINE SLIGHTLY CLOUDY (Clear); COLOR,URINE STRAW (Yellow); GLUCOSE, URINE NEGATIVE (Neg); KETONES,URINE NEGATIVE (Neg); LEUKOCYTE ESTERASE ,URINE NEGATIVE (Neg); NITRITES, URINE NEGATIVE (Neg); OCCULT BLOOD,URINE NEGATIVE (Neg); PH,URINE 8.5 (4.8-8.0); PROTEIN,URINE NEGATIVE (Neg); URINE HCG NEGATIVE (NEG); UROBILINOGEN,URINE 0.2 E.U/dL (0.2-1.0)
[2019-10-24 15:51] LABS: UA COLLECTION TYPE CLN CATCH MIDSTREAM
[2019-10-24 15:54] LABS: SQUAMOUS EPITHELIAL CELL,UR MODERATE /LPF (FEW)
[2019-10-24 15:55] LABS: AMORPHOUS PHOSPHATES 3+; BACTERIA,URINE FEW /HPF (Neg); RBC,URINE 0-2 /HPF (0-2); WBC,URINE 0-4 /HPF (0-4)
[2019-10-24 16:02] LABS: ALANINE AMINOTRANSFERASE 58 U/L (12-78); ALBUMIN 3.9 G/DL (3.4-5.0); ALKALINE PHOSPHATASE 127 IU/L (46-116); ANION GAP 10 (8-16); ASPARTATE AMINO TRANSFERASE 44 U/L (10-37); BILIRUBIN,TOTAL 0.4 MG/DL (0.1-1.0); BLOOD UREA NITROGEN 15 MG/DL (7-18); BUN/CREATININE RATIO 12.2 (6.6-38.0); CALCIUM 9.6 MG/DL (8.5-10.1); CHLORIDE 104 MMOL/L (99-107); CREATININE 1.23 MG/DL (0.40-0.90); GLUCOSE 106 MG/DL (70-104); LIPASE 95 U/L (73-393); SODIUM 141 MMOL/L (135-145); TOTAL CARBON DIOXIDE 26.8 MMOL/L (24-32); TOTAL PROTEIN 7.7 G/DL (6.4-8.2); eGFR 47 ML/MIN
[2019-10-24] MEDS ORDERED: ondansetron/PF 4mg/2ml inj IV ONE (18:00)
[2019-10-24] MEDS ORDERED: ketorolac tromethamine 15mg/ml inj. IV ONE (18:00)
--- NOTE | 2019-10-24 18:08 | NUR ---
MEDICATED FOR NAUSEA & PAIN. TO US IN WC.
--- NOTE | 2019-10-24 18:36 | NUR ---
report given to Elena BRAVO
[2019-10-24 19:44] VITALS: BP 108/68
== END 2019-10-24 19:46 | disposition home or self-care (01) ==
LOC: ER 15:11
DX: R10.32 Left lower quadrant pain (principal); N18.9 Chronic kidney disease, unspecified; F31.9 Bipolar disorder, unspecified; Z90.49 Acquired absence of other specified parts of digestive tract; Z90.710 Acquired absence of both cervix and uterus; Z98.890 Other specified postprocedural states; Z88.2 Allergy status to sulfonamides; Z88.8 Allergy status to other drugs, medicaments and biological substances; Z79.899 Other long term (current) drug therapy
CPT/HCPCS: 36415; 74176; 80053; 81001; 81025; 83690; 85025; 96374; 96375; 99284; J1885; J2405

== ENCOUNTER 2019-12-05 18:36 | Emergency (ER) | payer BC, MEDICARE ==
[~2019-12-05] VITALS: Ht 162.6 cm; Wt 68.2 kg
[2019-12-05 18:55] LABS: BASOPHILS # (AUTO) 0.1 X10'3 (0-0.2); EOSINOPHILS # (AUTO) 0.1 X10'3 (0-0.9); HEMOGLOBIN 15.4 g/dl (12.0-16.0); LYMPHOCYTES # (AUTO) 2.5 X10'3 (1.1-4.8); MEAN PLATELET VOLUME 7.4 FL (7.4-10.4); MONOCYTES # (AUTO) 0.3 X10'3 (0-0.9)
[2019-12-05 18:57] LABS: BASOPHILS % (AUTO) 1.5 % (0-1); EOSINOPHILS % (AUTO) 1.8 % (0-6); MEAN CORPUSCULAR HEMOGLOBIN 31.6 PG (27.0-31.0); MEAN CORPUSCULAR HGB CONC 34.1 g/dL (33.0-36.5); MEAN CORPUSCULAR VOLUME 92.5 FL (78-98); MONOCYTES % (AUTO) 4.5 % (2-12); NEUTROPHILS % (AUTO) 56.2 % (42-75); PLATELET COUNT 291 X10'3 (140-440); RED BLOOD COUNT 4.86 X10'6 (4.20-5.60); RED CELL DISTRIBUTION WIDTH 12.7 % (11.5-14.5)
[2019-12-05 19:09] LABS: ALANINE AMINOTRANSFERASE 41 U/L (12-78); ALBUMIN 4.3 G/DL (3.4-5.0); ALBUMIN/GLOBULIN RATIO 1.1 (1.1-1.5); ALKALINE PHOSPHATASE 110 IU/L (46-116); ANION GAP 12 (8-16); ASPARTATE AMINO TRANSFERASE 26 U/L (10-37); BILIRUBIN,TOTAL 0.5 MG/DL (0.1-1.0); BLOOD UREA NITROGEN 10 MG/DL (7-18); BUN/CREATININE RATIO 6.3 (6.6-38.0); CALCIUM 9.7 MG/DL (8.5-10.1); CHLORIDE 104 MMOL/L (99-107); CREATININE 1.58 MG/DL (0.40-0.90); GLUCOSE 129 MG/DL (70-104); LIPASE 85 U/L (73-393); POTASSIUM 3.4 MMOL/L (3.5-5.1); SODIUM 140 MMOL/L (135-145); TOTAL PROTEIN 8.2 G/DL (6.4-8.2); eGFR 35 ML/MIN
[2019-12-05 19:14] LABS: CLARITY,URINE SLIGHTLY CLOUDY (Clear); COLOR,URINE YELLOW (Yellow); GLUCOSE, URINE NEGATIVE (Neg); KETONES,URINE NEGATIVE (Neg); LEUKOCYTE ESTERASE ,URINE NEGATIVE (Neg); NITRITES, URINE NEGATIVE (Neg); OCCULT BLOOD,URINE NEGATIVE (Neg); PROTEIN,URINE NEGATIVE (Neg); UROBILINOGEN,URINE 0.2 E.U/dL (0.2-1.0)
[2019-12-05 19:15] LABS: UA COLLECTION TYPE CLN CATCH MIDSTREAM; URINE HCG NEGATIVE (NEG)
[2019-12-05 20:00] LABS: BACTERIA,URINE 1+ /HPF (Neg); RBC,URINE NONE SEEN /HPF (0-2); SQUAMOUS EPITHELIAL CELL,UR MODERATE /LPF (FEW); WBC,URINE 0-4 /HPF (0-4)
[2019-12-05] MEDS ORDERED: ondansetron/PF 4mg/2ml inj IV ONE (20:35)
[2019-12-05] MEDS ORDERED: normal saline 1000ML IV soln IVB ONE ×2 (20:35→21:20)
[2019-12-05] MEDS ORDERED: ketorolac tromethamine 15mg/ml inj. IV ONE (20:35)
[2019-12-05 22:05] VITALS: BP 101/70
== END 2019-12-05 22:07 | disposition home or self-care (01) ==
LOC: ER 18:37
DX: R06.02 Shortness of breath (principal); R10.32 Left lower quadrant pain; Z20.828 Contact with and (suspected) exposure to other viral communicable diseases; R07.89 Other chest pain; R19.7 Diarrhea, unspecified; N18.9 Chronic kidney disease, unspecified; F31.9 Bipolar disorder, unspecified; Z90.49 Acquired absence of other specified parts of digestive tract; Z90.710 Acquired absence of both cervix and uterus; Z98.890 Other specified postprocedural states; Z88.2 Allergy status to sulfonamides; Z91.048 Other nonmedicinal substance allergy status; Z91.018 Allergy to other foods; Z79.899 Other long term (current) drug therapy
CPT/HCPCS: 36415; 71045; 80053; 81001; 81025; 83690; 85025; 93005; 96374; 96375; 99285; J1885; J2405; J7030; U0003

== ENCOUNTER 2020-01-01 16:43 | Emergency (ER) | payer BC, MEDICARE ==
[~2020-01-01] VITALS: Ht 162.6 cm; Wt 71.0 kg
[2020-01-01 17:32] LABS: BASOPHILS # (AUTO) 0.1 X10'3 (0-0.2); BASOPHILS % (AUTO) 1.1 % (0-1); EOSINOPHILS # (AUTO) 0.1 X10'3 (0-0.9); HEMATOCRIT 43.7 % (35.0-45.0); HEMOGLOBIN 14.8 g/dl (12.0-16.0); LYMPHOCYTES # (AUTO) 2.4 X10'3 (1.1-4.8); LYMPHOCYTES % (AUTO) 40.9 % (21-51); MEAN CORPUSCULAR HEMOGLOBIN 31.4 PG (27.0-31.0); MEAN CORPUSCULAR HGB CONC 33.9 g/dL (33.0-36.5); MEAN CORPUSCULAR VOLUME 92.7 FL (78-98); MEAN PLATELET VOLUME 7.5 FL (7.4-10.4); MONOCYTES # (AUTO) 0.4 X10'3 (0-0.9); MONOCYTES % (AUTO) 7.3 % (2-12); NEUTROPHILS # (AUTO) 2.9 X10'3 (1.8-7.7); NEUTROPHILS % (AUTO) 48.7 % (42-75); PLATELET COUNT 269 X10'3 (140-440); RED BLOOD COUNT 4.72 X10'6 (4.20-5.60); RED CELL DISTRIBUTION WIDTH 12.8 % (11.5-14.5); WHITE BLOOD COUNT 5.9 X10'3 (4.5-11.0)
[2020-01-01 17:45] LABS: ALANINE AMINOTRANSFERASE 39 U/L (12-78); ALKALINE PHOSPHATASE 112 IU/L (46-116); ANION GAP 10 (8-16); ASPARTATE AMINO TRANSFERASE 22 U/L (10-37); BILIRUBIN,TOTAL 0.3 MG/DL (0.1-1.0); BLOOD UREA NITROGEN 16 MG/DL (7-18); CALCIUM 9.6 MG/DL (8.5-10.1); CHLORIDE 103 MMOL/L (99-107); CREATININE 1.23 MG/DL (0.40-0.90); GLUCOSE 104 MG/DL (70-104); LIPASE 55 U/L (73-393); POTASSIUM 3.7 MMOL/L (3.5-5.1); SODIUM 139 MMOL/L (135-145); TOTAL CARBON DIOXIDE 26.3 MMOL/L (24-32); TOTAL PROTEIN 7.9 G/DL (6.4-8.2); eGFR 47 ML/MIN
[2020-01-01 19:31] LABS: CLARITY,URINE CLEAR (Clear); COLOR,URINE YELLOW (Yellow); GLUCOSE, URINE NEGATIVE (Neg); KETONES,URINE NEGATIVE (Neg); LEUKOCYTE ESTERASE ,URINE NEGATIVE (Neg); NITRITES, URINE NEGATIVE (Neg); OCCULT BLOOD,URINE TRACE-INTACT (Neg); PROTEIN,URINE NEGATIVE (Neg); URINE HCG NEGATIVE (NEG); UROBILINOGEN,URINE 0.2 E.U/dL (0.2-1.0)
[2020-01-01] MEDS ORDERED: ACET1TAB25 PO (19:33)
[2020-01-01] MEDS ORDERED: QUET50TA22 PO (19:33)
[2020-01-01 19:45] LABS: UA COLLECTION TYPE CLN CATCH MIDSTREAM
[2020-01-01 19:46] LABS: BACTERIA,URINE NONE SEEN /HPF (Neg); RBC,URINE 0-2 /HPF (0-2); SQUAMOUS EPITHELIAL CELL,UR FEW /LPF (FEW); WBC,URINE 0-4 /HPF (0-4)
[2020-01-01] MEDS ORDERED: normal saline 1000ML IV soln IVB ONE (19:55)
[2020-01-01] MEDS ORDERED: ondansetron/PF 4mg/2ml inj IV ONE (19:55)
[2020-01-01] MEDS ORDERED: morphine 4 MG/ML inj SYRINge IV ONE (19:55)
[2020-01-01] MEDS ORDERED: ketorolac tromethamine 15mg/ml inj. IV ONE (19:55)
[2020-01-01] MEDS ORDERED: CYCL-1 PO (21:06)
[2020-01-01] MEDS ORDERED: HYDR-3965 PO (21:06)
[2020-01-01 21:34] VITALS: BP 101/60
== END 2020-01-01 21:37 | disposition home or self-care (01) ==
LOC: ER 16:43
DX: R10.9 Unspecified abdominal pain (principal); R11.2 Nausea with vomiting, unspecified; N18.9 Chronic kidney disease, unspecified; Z87.442 Personal history of urinary calculi; Z79.899 Other long term (current) drug therapy; Z90.49 Acquired absence of other specified parts of digestive tract; Z90.710 Acquired absence of both cervix and uterus; Z88.1 Allergy status to other antibiotic agents; Z88.8 Allergy status to other drugs, medicaments and biological substances
CPT/HCPCS: 36415; 76775; 80053; 81001; 81025; 83690; 85025; 96361; 96374; 96375; 99284; J1885; J2270; J2405; J7030

== ENCOUNTER 2020-01-20 10:05 | Emergency (ER) | payer BC ==
[~2020-01-20] VITALS: Ht 162.6 cm; Wt 68.2 kg
[~2020-01-20 10:05] MED LIST changes: +ACET1TAB25 PO; +CYCL-1 PO; +HYDR-3965 PO; -QUET50TA PO; +QUET50TA22 PO
[2020-01-20 10:39] LABS: CLARITY,URINE SLIGHTLY CLOUDY (Clear); COLOR,URINE YELLOW (Yellow); GLUCOSE, URINE NEGATIVE (Neg); KETONES,URINE NEGATIVE (Neg); LEUKOCYTE ESTERASE ,URINE NEGATIVE (Neg); NITRITES, URINE NEGATIVE (Neg); OCCULT BLOOD,URINE NEGATIVE (Neg); PROTEIN,URINE NEGATIVE (Neg); URINE HCG NEGATIVE (NEG); UROBILINOGEN,URINE 0.2 E.U/dL (0.2-1.0)
[2020-01-20] MEDS ORDERED: normal saline 1000ml 1,000 ML IV ONE (10:40)
[2020-01-20] MEDS ORDERED: morphine 4 MG/ML inj SYRINge IV ONE (10:40)
[2020-01-20] MEDS ORDERED: ketorolac tromethamine 15mg/ml inj. IV ONE (10:40)
[2020-01-20] MEDS ORDERED: ondansetron/PF 4mg/2ml inj IV ONE (10:40)
[2020-01-20 10:41] LABS: UA COLLECTION TYPE CLN CATCH MIDSTREAM
[2020-01-20 10:42] LABS: BASOPHILS # (AUTO) 0.1 X10'3 (0-0.2); BASOPHILS % (AUTO) 1.2 % (0-1); EOSINOPHILS # (AUTO) 0.1 X10'3 (0-0.9); EOSINOPHILS % (AUTO) 2.1 % (0-6); HEMATOCRIT 44.7 % (35.0-45.0); HEMOGLOBIN 15.1 g/dl (12.0-16.0); LYMPHOCYTES # (AUTO) 2.2 X10'3 (1.1-4.8); LYMPHOCYTES % (AUTO) 33.9 % (21-51); MEAN CORPUSCULAR HEMOGLOBIN 30.8 PG (27.0-31.0); MEAN CORPUSCULAR HGB CONC 33.8 g/dL (33.0-36.5); MEAN CORPUSCULAR VOLUME 91.1 FL (78-98); MEAN PLATELET VOLUME 7.3 FL (7.4-10.4); MONOCYTES # (AUTO) 0.3 X10'3 (0-0.9); MONOCYTES % (AUTO) 4.7 % (2-12); NEUTROPHILS # (AUTO) 3.7 X10'3 (1.8-7.7); NEUTROPHILS % (AUTO) 58.1 % (42-75); PLATELET COUNT 301 X10'3 (140-440); RED BLOOD COUNT 4.91 X10'6 (4.20-5.60); RED CELL DISTRIBUTION WIDTH 12.4 % (11.5-14.5); WHITE BLOOD COUNT 6.4 X10'3 (4.5-11.0)
[2020-01-20 10:45] LABS: MUCUS STRANDS MANY /LPF (Neg); SQUAMOUS EPITHELIAL CELL,UR MANY /LPF (FEW)
[2020-01-20 10:48] LABS: BACTERIA,URINE 2+ /HPF (Neg); RBC,URINE 0-2 /HPF (0-2); WBC,URINE 0-4 /HPF (0-4)
[2020-01-20 10:53] LABS: ALANINE AMINOTRANSFERASE 45 U/L (12-78); ALBUMIN 4.3 G/DL (3.4-5.0); ALBUMIN/GLOBULIN RATIO 1.1 (1.1-1.5); ALKALINE PHOSPHATASE 112 IU/L (46-116); ANION GAP 10 (8-16); ASPARTATE AMINO TRANSFERASE 25 U/L (10-37); BILIRUBIN,TOTAL 0.4 MG/DL (0.1-1.0); BLOOD UREA NITROGEN 15 MG/DL (7-18); BUN/CREATININE RATIO 11.9 (6.6-38.0); CALCIUM 9.6 MG/DL (8.5-10.1); CHLORIDE 101 MMOL/L (99-107); CREATININE 1.26 MG/DL (0.40-0.90); GLUCOSE 121 MG/DL (70-104); LIPASE 118 U/L (73-393); POTASSIUM 3.7 MMOL/L (3.5-5.1); SODIUM 137 MMOL/L (135-145); TOTAL CARBON DIOXIDE 26.2 MMOL/L (24-32); TOTAL PROTEIN 8.3 G/DL (6.4-8.2); eGFR 45 ML/MIN
[2020-01-20] MEDS ORDERED: HYDR-4383 PO (11:31)
[2020-01-20] MEDS ORDERED: ONDA4TAB6 PO (11:31)
[2020-01-20 11:32] VITALS: BP 105/64
== END 2020-01-20 11:43 | disposition home or self-care (01) ==
LOC: ER 10:06
DX: R10.32 Left lower quadrant pain (principal); R11.2 Nausea with vomiting, unspecified; N18.9 Chronic kidney disease, unspecified; F31.9 Bipolar disorder, unspecified; Z87.442 Personal history of urinary calculi; Z90.89 Acquired absence of other organs; Z90.49 Acquired absence of other specified parts of digestive tract; Z90.710 Acquired absence of both cervix and uterus; Z98.890 Other specified postprocedural states; Z88.1 Allergy status to other antibiotic agents; Z88.8 Allergy status to other drugs, medicaments and biological substances; Z91.018 Allergy to other foods; Z79.899 Other long term (current) drug therapy
CPT/HCPCS: 36415; 76775; 80053; 81001; 81025; 83690; 85025; 96374; 96375; 99284; J1885; J2270; J2405; J7030

== ENCOUNTER 2020-04-11 19:56 | Emergency (ER) | payer BC ==
[~2020-04-11] VITALS: Ht 162.6 cm; Wt 70.5 kg
[~2020-04-11 19:56] MED LIST changes: -HYDR-3965 PO; +HYDR-4383 PO; +ONDA4TAB6 PO
[2020-04-11 20:27] LABS: CLARITY,URINE CLEAR (Clear); COLOR,URINE YELLOW (Yellow); GLUCOSE, URINE NEGATIVE (Neg); KETONES,URINE NEGATIVE (Neg); LEUKOCYTE ESTERASE ,URINE NEGATIVE (Neg); NITRITES, URINE NEGATIVE (Neg); OCCULT BLOOD,URINE NEGATIVE (Neg); PH,URINE 6.5 (4.8-8.0); PROTEIN,URINE NEGATIVE (Neg); UA COLLECTION TYPE NON-SPECIFIED; UROBILINOGEN,URINE 0.2 E.U/dL (0.2-1.0)
[2020-04-11 20:28] LABS: URINE HCG NEGATIVE (NEG)
[2020-04-11 20:39] LABS: BASOPHILS # (AUTO) 0.1 X10'3 (0-0.2); BASOPHILS % (AUTO) 1.3 % (0-1); EOSINOPHILS # (AUTO) 0.2 X10'3 (0-0.9); EOSINOPHILS % (AUTO) 2.1 % (0-6); HEMATOCRIT 44.2 % (35.0-45.0); LYMPHOCYTES # (AUTO) 2.2 X10'3 (1.1-4.8); LYMPHOCYTES % (AUTO) 24.9 % (21-51); MEAN CORPUSCULAR HEMOGLOBIN 31.2 PG (27.0-31.0); MEAN CORPUSCULAR VOLUME 91.9 FL (78-98); MEAN PLATELET VOLUME 7.2 FL (7.4-10.4); MONOCYTES # (AUTO) 0.5 X10'3 (0-0.9); MONOCYTES % (AUTO) 6.2 % (2-12); NEUTROPHILS # (AUTO) 5.7 X10'3 (1.8-7.7); NEUTROPHILS % (AUTO) 65.5 % (42-75); PLATELET COUNT 308 X10'3 (140-440); RED BLOOD COUNT 4.81 X10'6 (4.20-5.60); RED CELL DISTRIBUTION WIDTH 12.7 % (11.5-14.5); WHITE BLOOD COUNT 8.7 X10'3 (4.5-11.0)
[2020-04-11 20:49] LABS: ALANINE AMINOTRANSFERASE 113 U/L (12-78); ALBUMIN 4.6 G/DL (3.4-5.0); ALBUMIN/GLOBULIN RATIO 1.1 (1.1-1.5); ALKALINE PHOSPHATASE 133 IU/L (46-116); ANION GAP 6 (8-16); ASPARTATE AMINO TRANSFERASE 78 U/L (10-37); BILIRUBIN,TOTAL 0.5 MG/DL (0.1-1.0); BLOOD UREA NITROGEN 18 MG/DL (7-18); BUN/CREATININE RATIO 13.6 (6.6-38.0); CHLORIDE 100 MMOL/L (99-107); CREATININE 1.32 MG/DL (0.40-0.90); GLUCOSE 102 MG/DL (70-104); LIPASE 76 U/L (73-393); POTASSIUM 4.4 MMOL/L (3.5-5.1); SODIUM 136 MMOL/L (135-145); TOTAL CARBON DIOXIDE 29.8 MMOL/L (24-32); TOTAL PROTEIN 8.8 G/DL (6.4-8.2); eGFR 43 ML/MIN
[2020-04-11] MEDS ORDERED: morphine 4 MG/ML inj SYRINge IV ONE (22:05)
[2020-04-11] MEDS ORDERED: ondansetron/PF 4mg/2ml inj IV ONE (22:05)
[2020-04-11] MEDS ORDERED: normal saline 1000ML IV soln IVB ONE ×2 (22:05)
[2020-04-11] MEDS ORDERED: pantoprazole 40 MG vial IV ONE (22:05)
[2020-04-11] MEDS ORDERED: ACET-3068 PO (22:11)
[2020-04-11 23:26] VITALS: BP 118/78
== END 2020-04-11 23:38 | disposition home or self-care (01) ==
LOC: ER 19:57
DX: R10.84 Generalized abdominal pain (principal); N18.9 Chronic kidney disease, unspecified; F31.9 Bipolar disorder, unspecified; F12.90 Cannabis use, unspecified, uncomplicated; Z87.442 Personal history of urinary calculi; Z90.89 Acquired absence of other organs; Z90.49 Acquired absence of other specified parts of digestive tract; Z90.710 Acquired absence of both cervix and uterus; Z98.890 Other specified postprocedural states; Z88.1 Allergy status to other antibiotic agents; Z88.8 Allergy status to other drugs, medicaments and biological substances; Z91.018 Allergy to other foods; Z79.899 Other long term (current) drug therapy
CPT/HCPCS: 36415; 76775; 80053; 81003; 81025; 83690; 85025; 96361; 96374; 96375; 99285; C9113; J2270; J2405; J7030

== ENCOUNTER 2020-06-10 15:56 | Emergency (ER) | payer BC, MEDICARE ==
[~2020-06-10] VITALS: Ht 162.6 cm; Wt 70.0 kg
[2020-06-10] MEDS ORDERED: ketorolac trometh. 30mg/ml inj. IV ONE (16:55)
[2020-06-10] MEDS ORDERED: morphine 4 MG/ML inj SYRINge IV PRN (16:55)
[2020-06-10] MEDS ORDERED: ondansetron/PF 4mg/2ml inj IV ONE (16:55)
[2020-06-10] MEDS ORDERED: normal saline 1000ML IV soln IVB ONE (16:55)
[2020-06-10 17:19] LABS: BASOPHILS % (AUTO) 0.4 % (0-1); EOSINOPHILS # (AUTO) 0.2 X10'3 (0-0.9); EOSINOPHILS % (AUTO) 2.6 % (0-6); HEMATOCRIT 44.2 % (35.0-45.0); HEMOGLOBIN 14.8 g/dl (12.0-16.0); LYMPHOCYTES # (AUTO) 2.2 X10'3 (1.1-4.8); LYMPHOCYTES % (AUTO) 35.3 % (21-51); MEAN CORPUSCULAR HEMOGLOBIN 30.9 PG (27.0-31.0); MEAN CORPUSCULAR HGB CONC 33.5 g/dL (33.0-36.5); MEAN CORPUSCULAR VOLUME 92.4 FL (78-98); MEAN PLATELET VOLUME 7.4 FL (7.4-10.4); MONOCYTES # (AUTO) 0.6 X10'3 (0-0.9); MONOCYTES % (AUTO) 8.8 % (2-12); NEUTROPHILS # (AUTO) 3.3 X10'3 (1.8-7.7); NEUTROPHILS % (AUTO) 52.9 % (42-75); PLATELET COUNT 280 X10'3 (140-440); RED BLOOD COUNT 4.79 X10'6 (4.20-5.60); RED CELL DISTRIBUTION WIDTH 12.6 % (11.5-14.5); WHITE BLOOD COUNT 6.3 X10'3 (4.5-11.0)
[2020-06-10 17:33] LABS: ALANINE AMINOTRANSFERASE 31 U/L (12-78); ALBUMIN 4.3 G/DL (3.4-5.0); ALBUMIN/GLOBULIN RATIO 1.1 (1.1-1.5); ALKALINE PHOSPHATASE 96 IU/L (46-116); ANION GAP 11 (8-16); ASPARTATE AMINO TRANSFERASE 20 U/L (10-37); BILIRUBIN,TOTAL 0.4 MG/DL (0.1-1.0); BLOOD UREA NITROGEN 17 MG/DL (7-18); CALCIUM 9.9 MG/DL (8.5-10.1); CHLORIDE 104 MMOL/L (99-107); CREATININE 1.21 MG/DL (0.40-0.90); GLUCOSE 110 MG/DL (70-104); POTASSIUM 3.7 MMOL/L (3.5-5.1); SODIUM 143 MMOL/L (135-145); TOTAL CARBON DIOXIDE 28.3 MMOL/L (24-32); TOTAL PROTEIN 8.2 G/DL (6.4-8.2); eGFR 47 ML/MIN
[2020-06-10 17:36] LABS: URINE HCG NEGATIVE (NEG)
[2020-06-10 17:38] LABS: CLARITY,URINE SLIGHTLY CLOUDY (Clear); COLOR,URINE YELLOW (Yellow); GLUCOSE, URINE NEGATIVE (Neg); KETONES,URINE TRACE mg/dl (Neg); LEUKOCYTE ESTERASE ,URINE NEGATIVE (Neg); NITRITES, URINE NEGATIVE (Neg); OCCULT BLOOD,URINE NEGATIVE (Neg); PROTEIN,URINE NEGATIVE (Neg); UROBILINOGEN,URINE 0.2 E.U/dL (0.2-1.0)
[2020-06-10 17:44] LABS: UA COLLECTION TYPE CLN CATCH MIDSTREAM
[2020-06-10 17:49] LABS: SQUAMOUS EPITHELIAL CELL,UR MANY /LPF (FEW)
[2020-06-10 17:50] LABS: BACTERIA,URINE FEW /HPF (Neg); MUCUS STRANDS NONE SEEN /LPF (Neg); RBC,URINE 0-2 /HPF (0-2); WBC,URINE 0-4 /HPF (0-4)
[2020-06-10] MEDS ORDERED: KETO10TA2 PO (18:32)
[2020-06-10] MEDS ORDERED: HYDROcodone/acetaminophen 5mg/325mg tablet PO ONE (18:40)
[2020-06-10 18:56] VITALS: BP 94/65
== END 2020-06-10 19:00 | disposition home or self-care (01) ==
LOC: ER 16:18
DX: R10.9 Unspecified abdominal pain (principal); F12.90 Cannabis use, unspecified, uncomplicated; N18.9 Chronic kidney disease, unspecified; Z87.442 Personal history of urinary calculi; Z90.49 Acquired absence of other specified parts of digestive tract; Z90.89 Acquired absence of other organs; Z88.2 Allergy status to sulfonamides; Z91.048 Other nonmedicinal substance allergy status; Z88.8 Allergy status to other drugs, medicaments and biological substances; Z79.899 Other long term (current) drug therapy
CPT/HCPCS: 36415; 76775; 80053; 81001; 81025; 85025; 96361; 96374; 96375; 99284; J1885; J2270; J2405; J7030

== ENCOUNTER 2020-08-08 13:07 | Emergency (ER) | payer BC, MEDICARE ==
[~2020-08-08] VITALS: Ht 162.6 cm; Wt 72.7 kg
[~2020-08-08 13:07] MED LIST changes: +KETO10TA2 PO
[2020-08-08 13:43] LABS: BASOPHILS # (AUTO) 0.1 X10'3 (0-0.2); BASOPHILS % (AUTO) 1.3 % (0-1); EOSINOPHILS # (AUTO) 0.2 X10'3 (0-0.9); EOSINOPHILS % (AUTO) 2.5 % (0-6); HEMATOCRIT 45.7 % (35.0-45.0); HEMOGLOBIN 15.4 g/dl (12.0-16.0); LYMPHOCYTES # (AUTO) 2.4 X10'3 (1.1-4.8); LYMPHOCYTES % (AUTO) 36.9 % (21-51); MEAN CORPUSCULAR HEMOGLOBIN 30.9 PG (27.0-31.0); MEAN CORPUSCULAR HGB CONC 33.6 g/dL (33.0-36.5); MEAN CORPUSCULAR VOLUME 91.9 FL (78-98); MEAN PLATELET VOLUME 7.5 FL (7.4-10.4); MONOCYTES # (AUTO) 0.4 X10'3 (0-0.9); MONOCYTES % (AUTO) 6.6 % (2-12); NEUTROPHILS # (AUTO) 3.5 X10'3 (1.8-7.7); NEUTROPHILS % (AUTO) 52.7 % (42-75); PLATELET COUNT 270 X10'3 (140-440); RED BLOOD COUNT 4.98 X10'6 (4.20-5.60); RED CELL DISTRIBUTION WIDTH 12.8 % (11.5-14.5); WHITE BLOOD COUNT 6.6 X10'3 (4.5-11.0)
[2020-08-08 13:58] LABS: CLARITY,URINE CLOUDY (Clear); COLOR,URINE YELLOW (Yellow); GLUCOSE, URINE NEGATIVE (Neg); KETONES,URINE NEGATIVE (Neg); LEUKOCYTE ESTERASE ,URINE NEGATIVE (Neg); NITRITES, URINE NEGATIVE (Neg); OCCULT BLOOD,URINE NEGATIVE (Neg); PH,URINE 5.5 (4.8-8.0); PROTEIN,URINE NEGATIVE (Neg); UROBILINOGEN,URINE 0.2 E.U/dL (0.2-1.0)
[2020-08-08 14:00] LABS: URINE HCG NEGATIVE (NEG)
[2020-08-08 14:01] LABS: UA COLLECTION TYPE CLN CATCH MIDSTREAM
[2020-08-08 14:01] LABS: ALANINE AMINOTRANSFERASE 64 U/L (12-78); ALKALINE PHOSPHATASE 113 IU/L (46-116); ANION GAP 10 (8-16); ASPARTATE AMINO TRANSFERASE 34 U/L (10-37); BILIRUBIN,TOTAL 0.4 MG/DL (0.1-1.0); BLOOD UREA NITROGEN 15 MG/DL (7-18); BUN/CREATININE RATIO 12.5 (6.6-38.0); CALCIUM 9.7 MG/DL (8.5-10.1); CHLORIDE 101 MMOL/L (99-107); GLUCOSE 144 MG/DL (70-104); LIPASE < 50 U/L (73-393); POTASSIUM 3.6 MMOL/L (3.5-5.1); SODIUM 137 MMOL/L (135-145); TOTAL CARBON DIOXIDE 26.4 MMOL/L (24-32); TOTAL PROTEIN 8.1 G/DL (6.4-8.2); eGFR 48 ML/MIN
[2020-08-08 14:03] LABS: MUCUS STRANDS MANY /LPF (Neg); SQUAMOUS EPITHELIAL CELL,UR MANY /LPF (FEW)
[2020-08-08 14:05] LABS: BACTERIA,URINE 2+ /HPF (Neg); RBC,URINE NONE SEEN /HPF (0-2); WBC,URINE 0-4 /HPF (0-4)
[2020-08-08 14:45] VITALS: BP 110/70
== END 2020-08-08 14:47 | disposition home or self-care (01) ==
LOC: ER 13:09
DX: K59.00 Constipation, unspecified (principal); R10.84 Generalized abdominal pain; N18.9 Chronic kidney disease, unspecified; F31.9 Bipolar disorder, unspecified; F12.90 Cannabis use, unspecified, uncomplicated; Z87.442 Personal history of urinary calculi; Z90.89 Acquired absence of other organs; Z90.49 Acquired absence of other specified parts of digestive tract; Z98.890 Other specified postprocedural states; Z88.8 Allergy status to other drugs, medicaments and biological substances; Z88.1 Allergy status to other antibiotic agents; Z91.018 Allergy to other foods; Z79.899 Other long term (current) drug therapy
CPT/HCPCS: 36415; 74018; 80053; 81001; 81025; 83690; 85025; 99284

== ENCOUNTER 2020-09-20 10:31 | Emergency (ER) | payer BC ==
[~2020-09-20] VITALS: Ht 162.6 cm; Wt 73.6 kg
[2020-09-20 10:36] VITALS: BP 139/86
[2020-09-20 12:15] LABS: BASOPHILS # (AUTO) 0.1 X10'3 (0-0.2); EOSINOPHILS # (AUTO) 0.2 X10'3 (0-0.9); EOSINOPHILS % (AUTO) 2.7 % (0-6); HEMATOCRIT 43.8 % (35.0-45.0); HEMOGLOBIN 14.8 g/dl (12.0-16.0); LYMPHOCYTES # (AUTO) 2.1 X10'3 (1.1-4.8); LYMPHOCYTES % (AUTO) 28.2 % (21-51); MEAN CORPUSCULAR HEMOGLOBIN 31.2 PG (27.0-31.0); MEAN CORPUSCULAR HGB CONC 33.8 g/dL (33.0-36.5); MEAN CORPUSCULAR VOLUME 92.2 FL (78-98); MEAN PLATELET VOLUME 7.4 FL (7.4-10.4); MONOCYTES # (AUTO) 0.6 X10'3 (0-0.9); MONOCYTES % (AUTO) 7.8 % (2-12); NEUTROPHILS # (AUTO) 4.6 X10'3 (1.8-7.7); NEUTROPHILS % (AUTO) 60.3 % (42-75); PLATELET COUNT 292 X10'3 (140-440); RED BLOOD COUNT 4.75 X10'6 (4.20-5.60); RED CELL DISTRIBUTION WIDTH 12.8 % (11.5-14.5); WHITE BLOOD COUNT 7.6 X10'3 (4.5-11.0)
[2020-09-20 12:21] LABS: ALANINE AMINOTRANSFERASE 73 U/L (12-78); ALBUMIN 3.8 G/DL (3.4-5.0); ALKALINE PHOSPHATASE 117 IU/L (46-116); ANION GAP 10 (8-16); ASPARTATE AMINO TRANSFERASE 51 U/L (10-37); BILIRUBIN,TOTAL 0.3 MG/DL (0.1-1.0); BLOOD UREA NITROGEN 12 MG/DL (7-18); BUN/CREATININE RATIO 10.3 (6.6-38.0); CALCIUM 9.2 MG/DL (8.5-10.1); CHLORIDE 105 MMOL/L (99-107); CREATININE 1.17 MG/DL (0.40-0.90); ETHANOL < 0.010 GM/DL (0.0-0.010); GLUCOSE 102 MG/DL (70-104); POTASSIUM 4.1 MMOL/L (3.5-5.1); SODIUM 141 MMOL/L (135-145); TOTAL CARBON DIOXIDE 26.5 MMOL/L (24-32); TOTAL PROTEIN 7.7 G/DL (6.4-8.2); eGFR 49 ML/MIN
[2020-09-20 13:38] LABS: URINE HCG NEGATIVE (NEG)
[2020-09-20 13:56] LABS: URINE AMPHETAMINE SCREEN NEGATIVE (Neg); URINE BARBITUATE SCREEN NEGATIVE (Neg); URINE BENZODIAZEPINES SCREEN NEGATIVE (Neg); URINE CANNABINOID SCREEN NEGATIVE (Neg); URINE COCAINE SCREEN NEGATIVE (Neg); URINE METHADONE SCREEN NEGATIVE (Neg); URINE OPIATE SCREEN POSITIVE (Neg); URINE PHENCYCLIDINE SCREEN NEGATIVE (Neg)
--- NOTE | 2020-09-20 14:39 | NUR ---
PACKET SENT TO [facility]
[2020-09-20] MEDS ORDERED: ondansetron 4mg/5ml UD cup PO ONE (14:45)
[2020-09-20] MEDS ORDERED: ondansetron 4mg rapidly disintigrating tab PO ONE (14:50)
[2020-09-20 14:54] LABS: CLARITY,URINE SLIGHTLY CLOUDY (Clear); COLOR,URINE STRAW (Yellow); GLUCOSE, URINE NEGATIVE (Neg); KETONES,URINE NEGATIVE (Neg); LEUKOCYTE ESTERASE ,URINE NEGATIVE (Neg); NITRITES, URINE NEGATIVE (Neg); OCCULT BLOOD,URINE NEGATIVE (Neg); PROTEIN,URINE NEGATIVE (Neg); UA COLLECTION TYPE CLN CATCH MIDSTREAM; UROBILINOGEN,URINE 0.2 E.U/dL (0.2-1.0)
[2020-09-20 15:06] LABS: BACTERIA,URINE 1+ /HPF (Neg); MUCUS STRANDS NONE SEEN /LPF (Neg); RBC,URINE NONE SEEN /HPF (0-2); SQUAMOUS EPITHELIAL CELL,UR MODERATE /LPF (FEW); WBC,URINE 0-4 /HPF (0-4)
[2020-09-20] MEDS ORDERED: LACT1CAP65 PO (16:16)
[2020-09-20] MEDS ORDERED: MECO10005 PO (16:16)
[2020-09-20] MEDS ORDERED: ASEN5TAB7 SL (16:16)
[2020-09-20] MEDS ORDERED: NAPR-996 PO (16:16)
[2020-09-20] MEDS ORDERED: LIDO700A47 TOP (16:16)
[2020-09-20] MEDS ORDERED: PROP10TA10 PO (16:16)
[2020-09-20] MEDS ORDERED: CLON-371 PO (16:23)
[2020-09-20] MEDS ORDERED: acetaminophen w/codeine (30MG) #3 tablet PO PRN (20:40)
[2020-09-20] MEDS ORDERED: clonazePAM 1mg tablet PO PRN (20:40)
[2020-09-20] MEDS ORDERED: QUEtiapine 25mg tablet PO PRN (20:40)
[2020-09-20] MEDS ORDERED: venlafaxine 25mg tablet PO SCH (21:00)
[2020-09-20] MEDS ORDERED: lamoTRIgine 100mg tablet PO SCH (21:00)
[2020-09-21] MEDS ORDERED: asenapine 5mg TAB.SUBL SL SCH (08:00)
[2020-09-21] MEDS ORDERED: lactobacillus rhamnosus 10,000 MMU CELLS/CAPSULE PO SCH (08:00)
[2020-09-21] MEDS ORDERED: cyanocobalamin 500mcg tablet PO SCH (08:00)
[2020-09-21] MEDS ORDERED: LIDOcaine 5% patch TP SCH (08:00)
== END 2020-09-20 21:43 | disposition home or self-care (01) ==
LOC: ER 10:32
DX: R45.851 Suicidal ideations (principal); F31.9 Bipolar disorder, unspecified; R44.3 Hallucinations, unspecified; N18.9 Chronic kidney disease, unspecified; G89.29 Other chronic pain; F12.90 Cannabis use, unspecified, uncomplicated; Z87.442 Personal history of urinary calculi; Z90.89 Acquired absence of other organs; Z90.49 Acquired absence of other specified parts of digestive tract; Z90.710 Acquired absence of both cervix and uterus; Z98.890 Other specified postprocedural states; Z88.1 Allergy status to other antibiotic agents; Z88.8 Allergy status to other drugs, medicaments and biological substances; Z91.018 Allergy to other foods; Z79.899 Other long term (current) drug therapy
CPT/HCPCS: 36415; 80053; 80305; 80320; 81001; 81025; 85025; 99285

== ENCOUNTER 2020-09-20 17:35 | Inpatient (IN) | payer BC, MEDICARE ==
[~2020-09-20] VITALS: Ht 165.1 cm; Wt 74.0 kg
[~2020-09-20 17:35] MED LIST changes: +ASEN5TAB7 SL; +CLON-371 PO; +LACT1CAP65 PO; +LIDO700A47 TOP; +MECO10005 PO; +NAPR-996 PO; +PROP10TA10 PO
[2020-09-20] MEDS ORDERED: acetaminophen 325mg tablet PO PRN ×2 (21:50→22:15)
[2020-09-20 22:05] VITALS: BP 140/85
[2020-09-20] MEDS ORDERED: magnesium hydroxide 30ml (MOM) UD suspension PO PRN (22:15)
[2020-09-20] MEDS ORDERED: mag hydrox/Alum hydrox/simeth 30ml oral suspension PO PRN (22:15)
[2020-09-20] MEDS ORDERED: quetiapine 100mg tablet PO PRN (22:20)
[2020-09-20] MEDS: traZODone 50mg tablet PO PRN (22:32)
[2020-09-20] MEDS: LORazepam 1 MG tablet PO PRN (22:32)
--- NOTE | 2020-09-21 01:34 | NUR ---
Admission Note: Pt presented to the ED for suicidal ideation. Pt reported being unable to sleep and feeling manic for the last week. Pt has a hx of bipolar and cutting and has been hospitalized for mental health treatment in the past. Pt was oriented to unit, given a snack, showered before going to bed.
[2020-09-21 08:00] VITALS: BP 102/63
[2020-09-21] MEDS: asenapine 5mg TAB.SUBL SL SCH ×2 (08:00→08:23)
[2020-09-21] MEDS: lactobacillus rhamnosus 10,000 MMU CELLS/CAPSULE PO SCH (08:23)
[2020-09-21] MEDS: cyanocobalamin 500mcg tablet PO SCH (08:23)
[2020-09-21] MEDS: LIDOcaine 5% patch TP SCH (08:24)
--- NOTE | 2020-09-21 08:45 | NUR ---
Pt refused Saphris due to "restless legs."
[2020-09-21] MEDS: clonazePAM 1mg tablet PO PRN ×2 (08:48→18:38)
--- NOTE | 2020-09-21 13:37 | NUR ---
NURSING PROGRESS NOTE: Legal hold:5150 Client on Involuntary status for DTS/DTO Report received from nurse Rosana RN Why are they here: Pt presented to the ED for suicidal ideation. Pt reported being unable to sleep and feeling manic for the last week. Pt has a hx of bipolar and cutting and has been hospitalized for mental health treatment in the past. Assessment What has happened this shift: Pt brought up to the unit from [facility] ER. Pt states, "my goal is too separate Lucifer from good by them on the earth Lucifer can stay over on his side." She further stated she was okay with dying later recanting on that comment "I do have my kids." Pt showered, took an Ativan, ate and went to sleep. S/I, H/I: pt is indecisive regarding SI possibly due to her current delusional state. She denies HI. A/VH: pt endorsees AH Sleep: slept this shift ADL's: showered and washed her hair Group attendance: No Were Meds taken: Yes Any med S/E: None noted or reported Mental Status Exam Appearance: tall, dirty blonde anna female missing two or more top teeth wearing green scrubs Eye contact: fair Behavior: restless prior to taking Ativan 1mg Speech: rapid. clear Mood: "No longer suicidal." "I feel good right now." Affect: somewhat euphoric, anxious Thought process: delusional Thought Content: pt has a goal to separate "Lucifer" from "the good" and she stated she is willing to for this cause Cognition: paranoid perception Insight: poor Judgment: poor Interventions PRN's used: Ativan 1mg PO Therapeutic interventions: Provided admission process and documentation, oriented pt to the unit, reminded pt of unit schedule, medication administration/education/monitoring, monitored q 15min safety checks. Restraints/seclusion/emergency medication: N/A Justification: Pt. requires interruption of current crisis, medication compliance, and a safe and therapeutic environment.
--- NOTE | 2020-09-21 15:26 | NUR ---
Disregard previous Progress Note: wrong chart
--- NOTE | 2020-09-21 16:30 | NUR ---
Nursing Progress Note: Legal hold:5150 Client on involuntary status for DTS Report received from nurse Joe RN with use of SBAR Why are they here: Patient is a 50-year-old female with bipolar 1 disorder, ADHD, and PTSD who presents the ED for suicidal ideation. Patient states that she has been in a manic episode for the last week and has been unable to sleep. Patient's plan was to hang herself. She does report a history of cutting and notes that she has been hospitalized 5 times in the past for mental health. Patient endorses increased life stressors including chronic pain and a recent lawsuit from 20 years ago which she thinks has partially triggered her symptoms. Assessment What has happened this shift: Pt keeps to herself most of the shift. She is observed sitting on her bed reading a book prior to routine morning assessment. During her assessment pt became tearful bringing up the story involving her current lawsuit brought against her a few weeks ago over an incident that happened 20 years ago. Pt requested Ativan for anxiety after breakfast. S/I, H/I: thoughts of suicide without a plan; denies HI A/VH: Denies Sleep: Napped this shift ADL's: Independent Group attendance: No Were meds taken: Yes Any med S/E: None noted or reported Mental Status Exam Appearance: Pt is a short dark haired woman wearing her personal clothing Eye contact: Fair Behavior: Calm and cooperative Speech: Clear, normal rate and rhythm Mood: "I've been really down since this lawsuit." Affect: Depressed Thought process: Logical Thought Content: Thankful her has stuck with her Cognition: A/O x4 Insight: Good Judgment: Fair Interventions PRN's used: Ativan Therapeutic interventions: Provided 1:1 routine am assessment; provided therapeutic communication with active listening; medication administration/education/monitoring; monitored q15 min safety checks. Restraints/seclusion/emergency medication: N/A Justification of Continued Inpatient Treatment: Pt. requires interruption of current crisis, medication compliance, and a safe and therapeutic environment.
[2020-09-21 19:28] VITALS: BP 154/92
[2020-09-21] MEDS ORDERED: lurasidone 20mg tablet PO ONE (21:00)
[2020-09-21] MEDS ORDERED: venlafaxine 25mg tablet PO SCH (21:00)
[2020-09-21] MEDS: traZODone 50mg tablet PO PRN (21:14)
[2020-09-21] MEDS: lamoTRIgine 100mg tablet PO SCH (21:14)
[2020-09-21] MEDS: LORazepam 1 MG tablet PO PRN (21:14)
--- NOTE | 2020-09-21 23:43 | NUR ---
Nursing Progress Note: Legal hold:5150 Client on involuntary status for DTS Report received from nurse Joe RN with use of SBAR Why are they here: Patient is a 50-year-old female with bipolar 1 disorder, ADHD, and PTSD who presents the ED for suicidal ideation. Patient states that she has been in a manic episode for the last week and has been unable to sleep. Patient's plan was to hang herself. She does report a history of cutting and notes that she has been hospitalized 5 times in the past for mental health. Patient endorses increased life stressors including chronic pain and a recent lawsuit from 20 years ago which she thinks has partially triggered her symptoms. Assessment What has happened this shift: Pt was social during the evening shift, she was observed talking with other patients in the group room. Pt is friendly, cooperative and generally well liked by staff and patients. Pt seems to have a fair amount of insight into her mental illness and is knowledgeable about her medications. Pt is still anxious and requested Klonopin and Ativan with moderate success. S/I, H/I: thoughts of suicide without a plan; denies HI A/VH: Denies Sleep: see sleep assessment ADL's: Independent Group attendance: No Were meds taken: Yes Any med S/E: None noted or reported Mental Status Exam Appearance: wnl, clean clothes Eye contact: good Behavior: Calm and cooperative Speech: Clear, normal rate and rhythm Mood: "depressed Affect: Depressed Thought process: Logical Thought Content: Thankful her has stuck with her Cognition: A/O x4 Insight: Good Judgment: Fair Interventions PRN's used: Ativan, trazadone Therapeutic interventions: Provided 1:1 routine am assessment; provided therapeutic communication with active listening; medication administration/education/monitoring; monitored q15 min safety checks. Restraints/seclusion/emergency medication: N/A Justification of Continued Inpatient Treatment: Pt. requires interruption of current crisis, medication compliance, and a safe and therapeutic environment.
[2020-09-22] MEDS: lactobacillus rhamnosus 10,000 MMU CELLS/CAPSULE PO SCH (07:51)
[2020-09-22] MEDS: cyanocobalamin 500mcg tablet PO SCH (07:51)
[2020-09-22] MEDS: venlafaxine 25mg tablet PO SCH ×2 (07:51→20:06)
[2020-09-22 08:00] VITALS: BP 105/59
[2020-09-22] MEDS: LIDOcaine 5% patch TP SCH (08:00)
[2020-09-22] MEDS: clonazePAM 1mg tablet PO PRN (14:11)
--- NOTE | 2020-09-22 14:33 | NUR ---
Nursing Progress Note: Legal hold:5150 Client on involuntary status for DTS Report received from nurse Joe RN with use of SBAR Why are they here: Patient is a 50-year-old female with bipolar 1 disorder, ADHD, and PTSD who presents the ED for suicidal ideation. Patient states that she has been in a manic episode for the last week and has been unable to sleep. Patient's plan was to hang herself. She does report a history of cutting and notes that she has been hospitalized 5 times in the past for mental health. Patient endorses increased life stressors including chronic pain and a recent lawsuit from 20 years ago which she thinks has partially triggered her symptoms. Assessment What has happened this shift: Pt isolates in her room most of the shift. She is cooperative during AM medication pass. She is up for meals then right back to bed. Pt requested both Maalox PRN indigestion and Clonazepam PRN anxiety. Pt c/o "restless" leg syndrome caused from Latuda last night. S/I, H/I: thoughts of suicide without a plan; denies HI A/VH: Denies Sleep: Napped this shift ADL's: Independent Group attendance: No Were Meds taken: Yes Any med S/E: None noted or reported Mental Status Exam Appearance: Pt is a short dark haired woman wearing personal clothing Eye contact: Fair Behavior: Calm and cooperative Speech: Clear, normal rate and rhythm Mood: "All the medications give me restless leg syndrome." Affect: Anxious Thought process: Logical Thought Content: Unable to take medicine Cognition: A/O x4 Insight: Good Judgment: Fair Interventions PRN's used: Ativan Therapeutic interventions: Provided 1:1 routine am assessment; provided therapeutic communication with active listening; medication administration/education/monitoring; monitored q15 min safety checks. Restraints/seclusion/emergency medication: N/A Justification of Continued Inpatient Treatment: Pt. requires interruption of current crisis, medication compliance, and a safe and therapeutic environment.
[2020-09-22] MEDS: benztropine 1mg tablet PO PRN (16:41)
[2020-09-22] MEDS: lurasidone 20mg tablet PO SCH (17:48)
[2020-09-22 20:00] VITALS: BP 126/87
[2020-09-22] MEDS: LORazepam 1 MG tablet PO PRN (20:06)
[2020-09-22] MEDS: lamoTRIgine 100mg tablet PO SCH (20:06)
[2020-09-22] MEDS: traZODone 50mg tablet PO PRN (20:06)
--- NOTE | 2020-09-23 00:13 | NUR ---
Nursing Progress Note: Legal hold: 5150 Client on involuntary status for DTS Report received from LAWRENCE Diaz with use of SBAR Why are they here: Patient is a 50-year-old female with bipolar 1 disorder, ADHD, and PTSD who presents the ED for suicidal ideation. Patient states that she has been in a manic episode for the last week and has been unable to sleep. Patient's plan was to hang herself. She does report a history of cutting and notes that she has been hospitalized 5 times in the past for mental health. Patient endorses increased life stressors including chronic pain and a recent lawsuit from 20 years ago which she thinks has partially triggered her symptoms. Assessment What has happened this shift: The patient was out on the unit tonight. She is cooperative and friendly to staff and clients alike. She did some pacing with another client for a while. She is willing to talk of her past and present issues that are causing her distress at this time. Mostly, a lawsuit about something that happened over 20 years ago, for which she paid the crawford for at the time. She required no PRNs except Ativan and Trazodone at bedtime. S/I, H/I: Denies A/VH: Denies Sleep: See sleep assessment ADL's: Independent Group attendance: No Were meds taken: Yes Any med S/E: None reported or observed. Mental Status Exam Appearance: Well groomed woman wearing clean street clothes. Eye contact: Good Behavior: Calm and cooperative. Speech: Clear, normal rate and rhythm Mood: "Alright Affect: Blunted Thought process: Logical Thought Content: Thankful her has stuck with her Cognition: A/O x4 Insight: Good Judgment: Fair Interventions PRN's used: Ativan, Trazodone Therapeutic interventions: Provided 1:1 routine am assessment; provided therapeutic communication with active listening; medication administration/education/monitoring; monitored q15 min safety checks. Restraints/seclusion/emergency medication: N/A Justification of Continued Inpatient Treatment: Pt. requires interruption of current crisis, medication compliance, and a safe and therapeutic environment.
[2020-09-23 07:27] VITALS: BP 101/64
[2020-09-23] MEDS: lactobacillus rhamnosus 10,000 MMU CELLS/CAPSULE PO SCH (08:00)
[2020-09-23] MEDS: venlafaxine 25mg tablet PO SCH ×2 (08:01→20:04)
[2020-09-23] MEDS: cyanocobalamin 500mcg tablet PO SCH (08:01)
[2020-09-23] MEDS: LIDOcaine 5% patch TP SCH (08:20)
[2020-09-23] MEDS: clonazePAM 1mg tablet PO PRN ×2 (09:05→14:40)
[2020-09-23] MEDS: lurasidone 20mg tablet PO SCH (17:43)
--- NOTE | 2020-09-23 17:57 | NUR ---
Nursing Progress Note Legal hold:5150 Client on involuntary status for DTS Report received from RN with use of SBAR Why are they here: Patient is a 50-year-old female with bipolar 1 disorder, ADHD, and PTSD who presents the ED for suicidal ideation. Patient states that she has been in a manic episode for the last week and has been unable to sleep. Patient's plan was to hang herself. She does report a history of cutting and notes that she has been hospitalized 5 times in the past for mental health. Patient endorses increased life stressors including chronic pain and a recent lawsuit from 20 years ago which she thinks has partially triggered her symptoms. Assessment Received Pt in bed sleeping w/o distress at the beginning of the shift. Pt cooperative with vitals and returned to sleep before breakfast. Pt ate breakfast in community room and interacted appropriately with others. Pt tolerated AM assessments and took AM meds w/o issue. Pt anxious today and used Klonopin prn twice. She also walked halls for exercise, talked with staff and nursing students. Overall pleasant and cooperative, and able to express needs well. Pt believes Latuda made me groggy, but Ill give it time. S/I, H/I: Denies A/VH: Denies Sleep: Napped this shift ADL's: Independent Group attendance: No Were Meds taken: Yes Any med S/E: None noted or reported Mental Status Exam Appearance: Casual in own clothes Eye contact: Fair Behavior: Calm and cooperative Speech: Clear, normal rate and rhythm Mood: Anxious Affect: Blunted Thought process: Logical/linear Thought Content: Cognition: A/O x4 Insight: Good Judgment: Fair Interventions PRN's used: Klonopin X2 Therapeutic interventions: Provided 1:1 routine am assessment; provided therapeutic communication with active listening; medication administration/education/monitoring; monitored q15 min safety checks. Restraints/seclusion/emergency medication: N/A Justification of Continued Inpatient Treatment: Pt. requires interruption of current crisis, medication compliance, and a safe and therapeutic environment.
[2020-09-23 19:58] VITALS: BP 111/76
[2020-09-23] MEDS: lamoTRIgine 100mg tablet PO SCH (20:04)
[2020-09-23] MEDS: traZODone 50mg tablet PO PRN (20:04)
--- NOTE | 2020-09-23 23:36 | NUR ---
Nursing Progress Note: Legal hold: 5250 Client on involuntary status for DTS Report received from LAWRENCE Diaz with use of SBAR Why are they here: Patient is a 50-year-old female with bipolar 1 disorder, ADHD, and PTSD who presents the ED for suicidal ideation. Patient states that she has been in a manic episode for the last week and has been unable to sleep. Patient's plan was to hang herself. She does report a history of cutting and notes that she has been hospitalized 5 times in the past for mental health. Patient endorses increased life stressors including chronic pain and a recent lawsuit from 20 years ago which she thinks has partially triggered her symptoms. Assessment What has happened this shift: The patient was seen for 1:1 in the rec room. She reports that she was saddened about being served 5250 today, but has come to understand that she needs to give medication adjustments more time. She is also saddened that her daughter is not able to visit her. The patient did not appear anxious or manic tonight, choosing to retire early to bed before snack time. She easily woke for her HS meds and went right back to sleep. S/I, H/I: Denies A/VH: Denies Sleep: See sleep assessment ADL's: Independent Group attendance: No Were meds taken: Yes Any med S/E: None reported or observed. Mental Status Exam Appearance: Well groomed woman wearing clean street clothes. Eye contact: Good Behavior: Calm and cooperative. Speech: Clear, normal rate and rhythm Mood: "OK Affect: Blunted Thought process: Linear, goal oriented. Thought Content: Thankful her has stuck with her Cognition: A/O x4 Insight: Good Judgment: Fair Interventions PRN's used: Ativan, Trazodone Therapeutic interventions: Provided 1:1 routine am assessment; provided therapeutic communication with active listening; medication administration/education/monitoring; monitored q15 min safety checks. Restraints/seclusion/emergency medication: N/A Justification of Continued Inpatient Treatment: Pt. requires interruption of current crisis, medication compliance, and a safe and therapeutic environment.
[2020-09-24] MEDS: clonazePAM 1mg tablet PO PRN ×2 (01:46→12:45)
[2020-09-24] MEDS: benztropine 1mg tablet PO PRN ×2 (01:46→22:58)
[2020-09-24 07:42] VITALS: BP 110/60
[2020-09-24] MEDS: lactobacillus rhamnosus 10,000 MMU CELLS/CAPSULE PO SCH (08:28)
[2020-09-24] MEDS: venlafaxine 25mg tablet PO SCH ×2 (08:28→20:03)
[2020-09-24] MEDS: cyanocobalamin 500mcg tablet PO SCH (08:29)
[2020-09-24] MEDS: LIDOcaine 5% patch TP SCH (08:29)
--- NOTE | 2020-09-24 10:16 | NUR ---
Initial: Pt admit with bipolar depression with AH/VH on admit. Pt on a regular diet documented with 75-100% PO intake throughout LOS meeting estimated nutrient needs. LB 09/23 with PRN bowel care available. No documented edema or wounds. No nutrition diagnosis at this time. Will continue to follow. Recommendations: 1) Continue regular diet 2) Bowel care per rx 3) Weekly scaled weights Addendum: 09/24/20 at [address] Amended: Links added.
--- NOTE | 2020-09-24 14:37 | NUR ---
Today the group was about Growth Mindset versus Fixed Mindset. We discussed what the characteristics of both were and then had them think about and write down 1-3 areas they would like to work on to expand their growth mindset. The sheets they were provided with also had pictures that they could decorate and color to go along with the theme. PtEstefany was alert and oriented X 4. She was dressed in hospital clothing with a sweatshirt. Her hygiene was WNL.Her thought process was linear and her thought content was WNL. She engaged in the group, followed along with the discussion prompts, colored the page and gave feedback about what she wanted her areas of growth to be in the future. She was calm and pleasant to work with. She had insight and reported that gave three areas of growth, her first one being that she wanted to worked on being better at embracing challenges. She engaged well with other group members. Addendum: 09/24/20 at 1443 by Demetria SANCHES Amended: Links added.
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
[2020-09-24] MEDS: lurasidone 20mg tablet PO SCH (18:03)
[2020-09-24 19:19] VITALS: BP 116/64
[2020-09-24] MEDS: lamoTRIgine 100mg tablet PO SCH (20:04)
[2020-09-24] MEDS: traZODone 50mg tablet PO PRN (20:07)
[2020-09-24] MEDS: acetaminophen w/codeine (30MG) #3 tablet PO PRN (23:52)
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
[2020-09-25] MEDS: lactobacillus rhamnosus 10,000 MMU CELLS/CAPSULE PO SCH (08:23)
[2020-09-25] MEDS: cyanocobalamin 500mcg tablet PO SCH (08:23)
[2020-09-25] MEDS: venlafaxine 25mg tablet PO SCH ×2 (08:23→20:21)
[2020-09-25] MEDS: LIDOcaine 5% patch TP SCH (08:24)
[2020-09-25 08:41] VITALS: BP 90/50
[2020-09-25] MEDS: clonazePAM 1mg tablet PO PRN (13:29)
--- NOTE | 2020-09-25 13:42 | NUR ---
Today in group the topic was Managing Change. We discussed the Four Stages of Reacting to Change and the difference between escape coping and control coping. Each Pt. was given a Change Resiliency test that they could take to measure where they are in the process of embracing change. The session ended with Pt's picking out a coloring word affirmation page that resonated with them and how they feel in regards to the concept of change. Pt was alert and oriented X 4 thought she did report feeling very sleepy and "out of it" due to the Seroquel she took last night. Pt's thought process was linear and her thought content was WNL. She was engaged in the group, she took part in the discussion and took the change resiliency test and came up with a change plan that she wants to implement upon leaving [facility]. She felt she needed to focus more on herself and her needs as she has a tendency to put her adult children and her 's needs ahead of her own needs. She demonstrated insight in reporting that she tends to enable those around her and she loses herself in the process. She feels she needs to make sure she is nourishing herself and providing self care to herself. Addendum: 09/25/20 at 1406 by Demetria Eli Amended: Links added.
--- NOTE | 2020-09-25 14:40 | NUR ---
1:1 with Amada. She reported she had been groggy today due to taking seroquel last night. She talked about recent stressors and pending court case. She was tearful at times. Mood and affect were depressed. Validated her concerns. Discussed coping skills. She reported she has been trying to meditate in her room and it has been difficult. Gave her suggestions on various ways to meditate that may be helpful to her. Encouraged her to see her therapist at the [facility] and give it a chance as she has had unfavorable experiences with mandated therapy in the past. Amada reported she does not quite feel like she is ready to go home yet. She was unable to identify anything that had changed from when she first came into the hospital. Plan: [facility] will work with Amdaa on a discharge plan and follow up. MARIANNE Zamudio
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
[2020-09-25] MEDS: lurasidone 20mg tablet PO SCH (18:04)
[2020-09-25 19:11] VITALS: BP 103/53
[2020-09-25] MEDS: lamoTRIgine 100mg tablet PO SCH (20:21)
[2020-09-25] MEDS: traZODone 50mg tablet PO PRN (20:21)
[2020-09-25] MEDS ORDERED: quetiapine 100mg tablet PO PRN (20:25)
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
[2020-09-26 07:58] VITALS: BP 106/80
[2020-09-26] MEDS: LIDOcaine 5% patch TP SCH (08:00)
[2020-09-26] MEDS: lactobacillus rhamnosus 10,000 MMU CELLS/CAPSULE PO SCH (08:13)
[2020-09-26] MEDS: venlafaxine 25mg tablet PO SCH ×2 (08:13→20:28)
[2020-09-26] MEDS: cyanocobalamin 500mcg tablet PO SCH (08:14)
[2020-09-26] MEDS: clonazePAM 1mg tablet PO PRN ×2 (11:22→15:34)
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
[2020-09-26] MEDS: lurasidone 20mg tablet PO SCH (17:57)
[2020-09-26 19:33] VITALS: BP 97/58
[2020-09-26] MEDS: traZODone 50mg tablet PO PRN (20:27)
[2020-09-26] MEDS: lamoTRIgine 100mg tablet PO SCH (20:27)
[2020-09-26] MEDS: benztropine 1mg tablet PO PRN (22:57)
--- NOTE | 2020-09-27 03:12 | NUR ---
Nursing Progress Note Legal hold: Voluntary Client on voluntary status Report received from LAWRENCE Briseno with use of SBAR Why are they here: Patient is a 50-year-old female with bipolar 1 disorder, ADHD, and PTSD who presents the ED for suicidal ideation. Patient states that she has been in a manic episode for the last week and has been unable to sleep. Patient's plan was to hang herself. She does report a history of cutting and notes that she has been hospitalized 5 times in the past for mental health. Patient endorses increased life stressors including chronic pain and a recent lawsuit from 20 years ago which she thinks has partially triggered her symptoms. Assessment What happened this shift: Patient sitting up in bed at the beginning of shift. Pleasant and cooperative with care; compliant with medication. Patient c/o restless legs and anxiety. PRN Ativan, Trazodone and Cogentin provided this shift with positive effect. Patient reports anxiety r/t missing her family and not knowing when she will be discharging. She denies SI, HI, A/VH; no delusional thought content expressed and does not appear to be responding to IS. Patient isolative to bedroom, only coming out to request medication. She is observed sleeping and does not appear to be having difficulty. S/I, H/I: Denies A/VH: Denies Sleep: Refer to sleep assessment; PRN Trazodone provided. ADL's: Independent Group attendance: NA Were Meds taken: Yes Any med S/E: None observed or reported Mental Status Exam Appearance: Neat and appropriately dressed in personal attire Eye contact: Good Behavior: Pleasant, cooperative, isolative to room Speech: Clear, normal rate and rhythm Mood: Anxious Affect: Blunted Thought process: Linear Thought Content: Missing family and anxiety Cognition: A/O x4 Insight: Good Judgment: Fair Interventions PRN's used: Ativan, Cogentin and Trazodone Therapeutic interventions: Provided 1:1 routine am assessment; provided therapeutic communication with active listening; medication administration/education/monitoring; monitored q15 min safety checks. Restraints/seclusion/emergency medication: N/A Justification of Continued Inpatient Treatment: Pt. requires interruption of current crisis, medication compliance, and a safe and therapeutic environment.
[2020-09-27 07:19] VITALS: BP 107/61
[2020-09-27] MEDS: LIDOcaine 5% patch TP SCH ×2 (08:00→14:44)
[2020-09-27] MEDS: cyanocobalamin 500mcg tablet PO SCH (08:08)
[2020-09-27] MEDS: lactobacillus rhamnosus 10,000 MMU CELLS/CAPSULE PO SCH (08:08)
[2020-09-27] MEDS: venlafaxine 25mg tablet PO SCH (08:08)
--- NOTE | 2020-09-27 08:09 | NUR ---
Today's Group was working with [employer]. Pt's were given a heart to which they could color what emotions (emotions had corresponding color) they were currently feeling. The idea was for them to be able to connect with what emotions they are having in this present moment and then to be able to communicate those feelings. They then completed a sentence completion sheet about what their heart was feeling, thinking, etc. We also discussed how to scale, using a scale of 0-10, 0 being the best they have ever felt and 10 being the worst and they had to scale each emotion and discuss in the group. Pt. arrived to group a little bit late looking a bit tired and disheveled in appearance. She was apologetic for her tardiness and asked right away if she could get started on coloring her heart. Instructions were explained to her and she engaged with the exercise and began to color her heart. She was alert and oriented X 4. Her eyes were red and her mood appeared a bit sad today. She showed good insight into what her feelings were in the present moment reporting that she was feeling sad yet hopeful. She was able to scale her feelings appropriately and worked on the sentence completion as well. She engaged with other group members well and seemed to enjoy the group. There was no delusional thought content observed, her thought process was linear and goal directed. Addendum: 09/27/20 at 0819 by Demetria SANCHES Amended: Links added.
[2020-09-27] MEDS: acetaminophen w/codeine (30MG) #3 tablet PO PRN (08:13)
[2020-09-27] MEDS: clonazePAM 1mg tablet PO PRN (09:40)
[2020-09-27] MEDS ORDERED: LURA20TA PO (13:59)
--- NOTE | 2020-09-27 15:25 | NUR ---
DISCHARGE NOTE: Pt. discharged to home with via vehicle. RN went over discharge paper work and pt. signed all discharge forms. Pt. verbalized understanding of f/u plan and discharge medications. Pt.'s scripts escripted to [facility]. Pt. showed significant improvement during hospitalization. Pt. in no apparent distress. Pt. denies SI/HI, A/V hallucinations. Pt. is A&Ox4. Pt. given emergency contact numbers. Pt. discharged with all belongings.
== END 2020-09-27 15:25 | disposition home or self-care (01) | DRG 885 ==
LOC: ADULT MH 17:35
PROVIDERS: ADMIT Psychiatry & Neurology Psychiatry; ATTEND Psychiatry & Neurology Psychiatry
DX: F31.64 Bipolar disorder, current episode mixed, severe, with psychotic features (principal); N18.30 Chronic kidney disease, stage 3 unspecified; R45.851 Suicidal ideations; F43.10 Post-traumatic stress disorder, unspecified; K57.90 Diverticulosis of intestine, part unspecified, without perforation or abscess without bleeding; R10.32 Left lower quadrant pain; E66.3 Overweight; F12.10 Cannabis abuse, uncomplicated; F90.9 Attention-deficit hyperactivity disorder, unspecified type; M25.562 Pain in left knee; G89.29 Other chronic pain; Z90.710 Acquired absence of both cervix and uterus; Z91.5 Personal history of self-harm; Z68.27 Body mass index [BMI] 27.0-27.9, adult; Z79.899 Other long term (current) drug therapy
CPT/HCPCS: 87081

== ENCOUNTER 2020-10-28 19:53 | Emergency (ER) | payer BC, MEDICARE ==
[~2020-10-28] VITALS: Ht 162.6 cm; Wt 77.3 kg
[~2020-10-28 19:53] MED LIST changes: -ASEN5TAB7 SL; -CYCL-1 PO; -HYDR-4383 PO; -IBUP-1985 PO; -KETO10TA2 PO; +LURA20TA PO; -NAPR-996 PO; -ONDA4TAB6 PO; -PROP10TA10 PO
[2020-10-28 20:10] VITALS: BP 112/71
[2020-10-28 20:53] LABS: CLARITY,URINE SLIGHTLY CLOUDY (Clear); COLOR,URINE YELLOW (Yellow); GLUCOSE, URINE NEGATIVE (Neg); KETONES,URINE NEGATIVE (Neg); LEUKOCYTE ESTERASE ,URINE NEGATIVE (Neg); NITRITES, URINE NEGATIVE (Neg); OCCULT BLOOD,URINE NEGATIVE (Neg); PH,URINE 5.5 (4.8-8.0); PROTEIN,URINE NEGATIVE (Neg); UROBILINOGEN,URINE 0.2 E.U/dL (0.2-1.0)
[2020-10-28 21:00] LABS: UA COLLECTION TYPE CLN CATCH MIDSTREAM
[2020-10-28 21:01] LABS: RBC,URINE NONE SEEN /HPF (0-2); SQUAMOUS EPITHELIAL CELL,UR MANY /LPF (FEW); WBC,URINE 0-4 /HPF (0-4)
[2020-10-28 21:02] LABS: BACTERIA,URINE FEW /HPF (Neg); MUCUS STRANDS FEW /LPF (Neg)
[2020-10-28] MEDS ORDERED: ondansetron 4mg rapidly disintigrating tab PO ONE (22:40)
[2020-10-28] MEDS ORDERED: normal saline 1000ML IV soln IVB ONE (23:00)
[2020-10-28] MEDS ORDERED: ketorolac trometh. 30mg/ml inj. IV ONE (23:00)
[2020-10-28 23:28] LABS: BASOPHILS # (AUTO) 0.1 X10'3 (0-0.2); BASOPHILS % (AUTO) 1.4 % (0-1); EOSINOPHILS # (AUTO) 0.4 X10'3 (0-0.9); EOSINOPHILS % (AUTO) 6.2 % (0-6); HEMATOCRIT 40.2 % (35.0-45.0); HEMOGLOBIN 13.6 g/dl (12.0-16.0); LYMPHOCYTES # (AUTO) 2.2 X10'3 (1.1-4.8); LYMPHOCYTES % (AUTO) 35.3 % (21-51); MEAN CORPUSCULAR HEMOGLOBIN 31.6 PG (27.0-31.0); MEAN CORPUSCULAR HGB CONC 33.8 g/dL (33.0-36.5); MEAN CORPUSCULAR VOLUME 93.4 FL (78-98); MEAN PLATELET VOLUME 7.1 FL (7.4-10.4); MONOCYTES # (AUTO) 0.5 X10'3 (0-0.9); MONOCYTES % (AUTO) 8.8 % (2-12); NEUTROPHILS % (AUTO) 48.3 % (42-75); PLATELET COUNT 258 X10'3 (140-440); RED BLOOD COUNT 4.31 X10'6 (4.20-5.60); RED CELL DISTRIBUTION WIDTH 12.7 % (11.5-14.5); WHITE BLOOD COUNT 6.2 X10'3 (4.5-11.0)
[2020-10-28 23:38] LABS: ALANINE AMINOTRANSFERASE 57 U/L (12-78); ALBUMIN 3.9 G/DL (3.4-5.0); ALBUMIN/GLOBULIN RATIO 1.1 (1.1-1.5); ALKALINE PHOSPHATASE 104 IU/L (46-116); ANION GAP 9 (8-16); ASPARTATE AMINO TRANSFERASE 31 U/L (10-37); BILIRUBIN,TOTAL 0.4 MG/DL (0.1-1.0); BLOOD UREA NITROGEN 12 MG/DL (7-18); CALCIUM 9.1 MG/DL (8.5-10.1); CHLORIDE 103 MMOL/L (99-107); CREATININE 1.33 MG/DL (0.40-0.90); GLUCOSE 106 MG/DL (70-104); POTASSIUM 3.8 MMOL/L (3.5-5.1); SODIUM 139 MMOL/L (135-145); TOTAL CARBON DIOXIDE 27.5 MMOL/L (24-32); TOTAL PROTEIN 7.4 G/DL (6.4-8.2); eGFR 42 ML/MIN
[2020-10-29] MEDS ORDERED: morphine 5 MG/ML injection IV ONE (00:20)
[2020-10-29] MEDS ORDERED: morphine 10mg/ml inj. IV ONE (00:25)
== END 2020-10-29 00:50 | disposition home or self-care (01) ==
LOC: ER 19:54
DX: N20.0 Calculus of kidney (principal); F31.9 Bipolar disorder, unspecified; G89.29 Other chronic pain; F12.10 Cannabis abuse, uncomplicated; Z88.1 Allergy status to other antibiotic agents; Z88.2 Allergy status to sulfonamides; Z87.448 Personal history of other diseases of urinary system; Z88.8 Allergy status to other drugs, medicaments and biological substances
CPT/HCPCS: 36415; 74176; 80053; 81001; 85025; 96374; 96375; 99284; J1885; J2270; J7030

== ENCOUNTER 2021-01-06 12:33 | Emergency (ER) | payer BC ==
[~2021-01-06] VITALS: Ht 162.6 cm; Wt 72.7 kg
[~2021-01-06 12:33] MED LIST changes: -QUET50TA22 PO; +QUET50TA24 PO
[2021-01-06 14:02] LABS: URINE HCG NEGATIVE (NEG)
[2021-01-06 14:05] LABS: CLARITY,URINE SLIGHTLY CLOUDY (Clear); COLOR,URINE YELLOW (Yellow); GLUCOSE, URINE NEGATIVE (Neg); KETONES,URINE TRACE mg/dl (Neg); LEUKOCYTE ESTERASE ,URINE NEGATIVE (Neg); NITRITES, URINE NEGATIVE (Neg); OCCULT BLOOD,URINE NEGATIVE (Neg); PH,URINE 5.5 (4.8-8.0); PROTEIN,URINE NEGATIVE (Neg); UROBILINOGEN,URINE 0.2 E.U/dL (0.2-1.0)
[2021-01-06 14:20] LABS: UA COLLECTION TYPE CLN CATCH MIDSTREAM
[2021-01-06 14:23] LABS: MUCUS STRANDS MODERATE /LPF (Neg); SQUAMOUS EPITHELIAL CELL,UR MANY /LPF (FEW)
[2021-01-06 14:25] LABS: BACTERIA,URINE 1+ /HPF (Neg); RBC,URINE 0-2 /HPF (0-2); TRANSITIONAL EPI CELLS,URINE MODERATE /HPF; WBC,URINE 0-4 /HPF (0-4)
[2021-01-06] MEDS ORDERED: normal saline 1000ml 1,000 ML IV ONE (15:45)
[2021-01-06] MEDS ORDERED: ketorolac tromethamine 15mg/ml inj. IV ONE (15:45)
[2021-01-06] MEDS ORDERED: ondansetron/PF 4mg/2ml inj IV ONE ×2 (15:45→17:00)
[2021-01-06 16:28] LABS: BASOPHILS # (AUTO) 0.1 X10'3 (0-0.2); BASOPHILS % (AUTO) 1.1 % (0-1); EOSINOPHILS # (AUTO) 0.2 X10'3 (0-0.9); EOSINOPHILS % (AUTO) 2.8 % (0-6); HEMATOCRIT 41.8 % (35.0-45.0); HEMOGLOBIN 14.2 g/dl (12.0-16.0); LYMPHOCYTES # (AUTO) 2.4 X10'3 (1.1-4.8); LYMPHOCYTES % (AUTO) 39.1 % (21-51); MEAN CORPUSCULAR VOLUME 91.3 FL (78-98); MEAN PLATELET VOLUME 7.3 FL (7.4-10.4); MONOCYTES # (AUTO) 0.5 X10'3 (0-0.9); MONOCYTES % (AUTO) 7.4 % (2-12); NEUTROPHILS % (AUTO) 49.6 % (42-75); PLATELET COUNT 259 X10'3 (140-440); RED BLOOD COUNT 4.57 X10'6 (4.20-5.60); RED CELL DISTRIBUTION WIDTH 12.7 % (11.5-14.5); WHITE BLOOD COUNT 6.1 X10'3 (4.5-11.0)
[2021-01-06 16:34] LABS: ALANINE AMINOTRANSFERASE 36 U/L (12-78); ALBUMIN 3.9 G/DL (3.4-5.0); ALBUMIN/GLOBULIN RATIO 1.1 (1.1-1.5); ALKALINE PHOSPHATASE 91 IU/L (46-116); ANION GAP 10 (8-16); ASPARTATE AMINO TRANSFERASE 27 U/L (10-37); BILIRUBIN,TOTAL 0.4 MG/DL (0.1-1.0); BLOOD UREA NITROGEN 16 MG/DL (7-18); BUN/CREATININE RATIO 12.6 (6.6-38.0); CALCIUM 8.9 MG/DL (8.5-10.1); CHLORIDE 103 MMOL/L (99-107); CREATININE 1.27 MG/DL (0.40-0.90); GLUCOSE 93 MG/DL (70-104); LIPASE < 50 U/L (73-393); POTASSIUM 4.1 MMOL/L (3.5-5.1); SODIUM 139 MMOL/L (135-145); TOTAL CARBON DIOXIDE 26.3 MMOL/L (24-32); TOTAL PROTEIN 7.4 G/DL (6.4-8.2); eGFR 45 ML/MIN
[2021-01-06] MEDS ORDERED: HYDR-3965 PO (16:56)
[2021-01-06] MEDS ORDERED: ONDA4TAB6 PO (16:56)
[2021-01-06] MEDS ORDERED: FLO0.4C PO (16:58)
[2021-01-06] MEDS ORDERED: morphine 4 MG/ML inj SYRINge IV ONE (17:00)
[2021-01-06 17:14] VITALS: BP 123/78
== END 2021-01-06 17:16 | disposition home or self-care (01) ==
LOC: ER 12:36
DX: R10.12 Left upper quadrant pain (principal); R11.0 Nausea; N18.9 Chronic kidney disease, unspecified; G89.29 Other chronic pain; F31.9 Bipolar disorder, unspecified; F12.90 Cannabis use, unspecified, uncomplicated; Z87.442 Personal history of urinary calculi; Z90.89 Acquired absence of other organs; Z90.49 Acquired absence of other specified parts of digestive tract; Z90.710 Acquired absence of both cervix and uterus; Z98.890 Other specified postprocedural states; Z88.1 Allergy status to other antibiotic agents; Z88.8 Allergy status to other drugs, medicaments and biological substances; Z91.018 Allergy to other foods; Z79.899 Other long term (current) drug therapy
CPT/HCPCS: 36415; 80053; 81001; 81025; 83690; 85025; 96361; 96374; 96375; 99284; J1885; J2270; J2405; J7030

== ENCOUNTER 2021-01-16 14:57 | Emergency (ER) | payer BC ==
[~2021-01-16] VITALS: Ht 162.6 cm; Wt 74.6 kg
[~2021-01-16 14:57] MED LIST changes: +FLO0.4C PO; +ONDA4TAB6 PO
[2021-01-16 15:09] VITALS: BP 119/83
[2021-01-16 16:45] LABS: BASOPHILS % (AUTO) 0.2 % (0-1); EOSINOPHILS # (AUTO) 0.1 X10'3 (0-0.9); EOSINOPHILS % (AUTO) 1.7 % (0-6); HEMATOCRIT 44.9 % (35.0-45.0); HEMOGLOBIN 15.2 g/dl (12.0-16.0); LYMPHOCYTES # (AUTO) 2.2 X10'3 (1.1-4.8); LYMPHOCYTES % (AUTO) 39.5 % (21-51); MEAN CORPUSCULAR HEMOGLOBIN 31.2 PG (27.0-31.0); MEAN CORPUSCULAR HGB CONC 33.9 g/dL (33.0-36.5); MEAN PLATELET VOLUME 7.6 FL (7.4-10.4); MONOCYTES # (AUTO) 0.4 X10'3 (0-0.9); MONOCYTES % (AUTO) 7.4 % (2-12); NEUTROPHILS # (AUTO) 2.9 X10'3 (1.8-7.7); NEUTROPHILS % (AUTO) 51.2 % (42-75); PLATELET COUNT 275 X10'3 (140-440); RED BLOOD COUNT 4.88 X10'6 (4.20-5.60); WHITE BLOOD COUNT 5.6 X10'3 (4.5-11.0)
[2021-01-16 17:15] LABS: ALANINE AMINOTRANSFERASE 34 U/L (12-78); ALBUMIN 4.4 G/DL (3.4-5.0); ALBUMIN/GLOBULIN RATIO 1.2 (1.1-1.5); ALKALINE PHOSPHATASE 89 IU/L (46-116); ANION GAP 10 (8-16); ASPARTATE AMINO TRANSFERASE 20 U/L (10-37); BILIRUBIN,TOTAL 0.4 MG/DL (0.1-1.0); BLOOD UREA NITROGEN 11 MG/DL (7-18); BUN/CREATININE RATIO 9.4 (6.6-38.0); CALCIUM 9.4 MG/DL (8.5-10.1); CHLORIDE 104 MMOL/L (99-107); CREATININE 1.17 MG/DL (0.40-0.90); GLUCOSE 112 MG/DL (70-104); POTASSIUM 3.8 MMOL/L (3.5-5.1); SODIUM 141 MMOL/L (135-145); TOTAL CARBON DIOXIDE 26.7 MMOL/L (24-32); TOTAL PROTEIN 8.2 G/DL (6.4-8.2); eGFR 49 ML/MIN
== END 2021-01-16 18:02 | disposition home or self-care (01) ==
LOC: ER 14:57
DX: N23 Unspecified renal colic (principal); R11.2 Nausea with vomiting, unspecified; R30.0 Dysuria; N18.9 Chronic kidney disease, unspecified; G89.29 Other chronic pain; F31.9 Bipolar disorder, unspecified; F12.90 Cannabis use, unspecified, uncomplicated; Z87.442 Personal history of urinary calculi; Z90.89 Acquired absence of other organs; Z90.49 Acquired absence of other specified parts of digestive tract; Z90.710 Acquired absence of both cervix and uterus; Z98.890 Other specified postprocedural states; Z88.1 Allergy status to other antibiotic agents; Z88.8 Allergy status to other drugs, medicaments and biological substances; Z91.018 Allergy to other foods; Z79.899 Other long term (current) drug therapy
CPT/HCPCS: 36415; 74176; 80053; 85025; 99284

== ENCOUNTER 2021-09-29 17:01 | Emergency (ER) | payer BC ==
[~2021-09-29] VITALS: Ht 162.6 cm; Wt 72.0 kg
[~2021-09-29 17:01] MED LIST changes: -ACET1TAB25 PO; +ACET1TAB96 PO; -FLO0.4C PO
[2021-09-29] MEDS ORDERED: normal saline 1000ML IV soln IVB ONE (17:35)
[2021-09-29] MEDS ORDERED: morphine 4 MG/ML inj SYRINge IV ONE (17:35)
[2021-09-29] MEDS ORDERED: ketorolac trometh. 30mg/ml inj. IV ONE (17:35)
[2021-09-29] MEDS ORDERED: ondansetron/PF 4mg/2ml inj IV ONE (17:35)
[2021-09-29 17:47] LABS: CLARITY,URINE SLIGHTLY CLOUDY (Clear); COLOR,URINE YELLOW (Yellow); GLUCOSE, URINE NEGATIVE (Neg); KETONES,URINE NEGATIVE (Neg); LEUKOCYTE ESTERASE ,URINE NEGATIVE (Neg); NITRITES, URINE NEGATIVE (Neg); OCCULT BLOOD,URINE NEGATIVE (Neg); PROTEIN,URINE NEGATIVE (Neg); UROBILINOGEN,URINE 0.2 E.U/dL (0.2-1.0)
[2021-09-29 17:51] LABS: BASOPHILS # (AUTO) 0.1 X10'3 (0-0.2); BASOPHILS % (AUTO) 0.8 % (0-1); EOSINOPHILS # (AUTO) 0.2 X10'3 (0-0.9); EOSINOPHILS % (AUTO) 3.1 % (0-6); HEMOGLOBIN 14.4 g/dl (12.0-16.0); LYMPHOCYTES # (AUTO) 2.8 X10'3 (1.1-4.8); LYMPHOCYTES % (AUTO) 38.7 % (21-51); MEAN CORPUSCULAR HEMOGLOBIN 31.6 PG (27.0-31.0); MEAN CORPUSCULAR HGB CONC 34.3 g/dL (33.0-36.5); MEAN CORPUSCULAR VOLUME 92.1 FL (78-98); MEAN PLATELET VOLUME 7.2 FL (7.4-10.4); MONOCYTES # (AUTO) 0.6 X10'3 (0-0.9); MONOCYTES % (AUTO) 7.7 % (2-12); NEUTROPHILS # (AUTO) 3.6 X10'3 (1.8-7.7); NEUTROPHILS % (AUTO) 49.7 % (42-75); PLATELET COUNT 295 X10'3 (140-440); RED BLOOD COUNT 4.56 X10'6 (4.20-5.60); RED CELL DISTRIBUTION WIDTH 12.7 % (11.5-14.5); WHITE BLOOD COUNT 7.2 X10'3 (4.5-11.0)
[2021-09-29 17:57] LABS: UA COLLECTION TYPE CLN CATCH MIDSTREAM
[2021-09-29 17:58] LABS: BACTERIA,URINE FEW /HPF (Neg); MUCUS STRANDS FEW /LPF (Neg); RBC,URINE NONE SEEN /HPF (0-2); SQUAMOUS EPITHELIAL CELL,UR MANY /LPF (FEW); WBC,URINE 0-4 /HPF (0-4)
--- NOTE | 2021-09-29 18:06 | NUR ---
TO CT SCAN VIA WHEELCHAIR
[2021-09-29 18:12] LABS: ALANINE AMINOTRANSFERASE 35 U/L (12-78); ALBUMIN 4.1 G/DL (3.4-5.0); ALBUMIN/GLOBULIN RATIO 1.1 (1.1-1.5); ALKALINE PHOSPHATASE 102 IU/L (46-116); ANION GAP 10 (8-16); ASPARTATE AMINO TRANSFERASE 26 U/L (10-37); BILIRUBIN,TOTAL 0.3 MG/DL (0.1-1.0); BLOOD UREA NITROGEN 14 MG/DL (7-18); CALCIUM 8.7 MG/DL (8.5-10.1); CHLORIDE 105 MMOL/L (99-107); CREATININE 1.27 MG/DL (0.40-0.90); GLUCOSE 84 MG/DL (70-104); POTASSIUM 3.7 MMOL/L (3.5-5.1); SODIUM 142 MMOL/L (135-145); TOTAL CARBON DIOXIDE 26.8 MMOL/L (24-32); TOTAL PROTEIN 7.7 G/DL (6.4-8.2); eGFR 45 ML/MIN
[2021-09-29] MEDS ORDERED: HYDROcodone/acetaminophen 5mg/325mg tablet PO ONE (18:30)
[2021-09-29] MEDS ORDERED: HYDR-3965 PO (18:51)
[2021-09-29] MEDS ORDERED: NAPR-56 PO (18:51)
[2021-09-29] MEDS ORDERED: ONDA4TAB12 PO (18:51)
[2021-09-29 19:46] VITALS: BP 104/71
== END 2021-09-29 19:47 | disposition home or self-care (01) ==
LOC: ER 17:01
DX: N20.0 Calculus of kidney (principal); F12.90 Cannabis use, unspecified, uncomplicated; G89.29 Other chronic pain; N18.9 Chronic kidney disease, unspecified; Z90.49 Acquired absence of other specified parts of digestive tract; Z90.710 Acquired absence of both cervix and uterus
CPT/HCPCS: 36415; 74176; 80053; 81001; 85025; 96361; 96374; 96375; 99284; J1885; J2270; J2405; J7030

== ENCOUNTER 2022-07-23 13:14 | Emergency (ER) | payer BC ==
[~2022-07-23] VITALS: Ht 162.6 cm; Wt 75.0 kg
[~2022-07-23 13:14] MED LIST changes: +ONDA4TAB12 PO
[2022-07-23 13:17] VITALS: BP 128/84
[2022-07-23 13:49] LABS: BASOPHILS # (AUTO) 0.1 X10'3 (0-0.2); BASOPHILS % (AUTO) 1.1 % (0-1); EOSINOPHILS # (AUTO) 0.1 X10'3 (0-0.9); HEMATOCRIT 41.5 % (35.0-45.0); HEMOGLOBIN 13.8 g/dl (12.0-16.0); LYMPHOCYTES # (AUTO) 2.3 X10'3 (1.1-4.8); LYMPHOCYTES % (AUTO) 36.5 % (21-51); MEAN CORPUSCULAR HEMOGLOBIN 30.9 PG (27.0-31.0); MEAN CORPUSCULAR HGB CONC 33.3 g/dL (33.0-36.5); MEAN CORPUSCULAR VOLUME 92.8 FL (78-98); MEAN PLATELET VOLUME 6.8 FL (7.4-10.4); MONOCYTES # (AUTO) 0.4 X10'3 (0-0.9); NEUTROPHILS # (AUTO) 3.4 X10'3 (1.8-7.7); NEUTROPHILS % (AUTO) 54.4 % (42-75); PLATELET COUNT 278 X10'3 (140-440); RED BLOOD COUNT 4.47 X10'6 (4.20-5.60); RED CELL DISTRIBUTION WIDTH 12.8 % (11.5-14.5); WHITE BLOOD COUNT 6.2 X10'3 (4.5-11.0)
[2022-07-23 13:57] LABS: URINE HCG NEGATIVE (NEG)
[2022-07-23 14:01] LABS: CLARITY,URINE SLIGHTLY CLOUDY (Clear); COLOR,URINE YELLOW (Yellow); GLUCOSE, URINE NEGATIVE (Neg); KETONES,URINE NEGATIVE (Neg); LEUKOCYTE ESTERASE ,URINE SMALL (Neg); NITRITES, URINE NEGATIVE (Neg); OCCULT BLOOD,URINE NEGATIVE (Neg); PROTEIN,URINE NEGATIVE (Neg); UROBILINOGEN,URINE 0.2 E.U/dL (0.2-1.0)
[2022-07-23 14:04] LABS: ALANINE AMINOTRANSFERASE 48 U/L (12-78); ALBUMIN 4.1 G/DL (3.4-5.0); ALBUMIN/GLOBULIN RATIO 1.2 (1.1-1.5); ALKALINE PHOSPHATASE 123 IU/L (46-116); ANION GAP 7 (8-16); ASPARTATE AMINO TRANSFERASE 30 U/L (10-37); BILIRUBIN,TOTAL 0.3 MG/DL (0.1-1.0); BLOOD UREA NITROGEN 15 MG/DL (7-18); BUN/CREATININE RATIO 12.5 (6.6-38.0); CHLORIDE 104 MMOL/L (99-107); GLUCOSE 116 MG/DL (70-104); LIPASE 51 U/L (73-393); SODIUM 138 MMOL/L (135-145); TOTAL CARBON DIOXIDE 27.5 MMOL/L (24-32); TOTAL PROTEIN 7.5 G/DL (6.4-8.2); eGFR 47 ML/MIN
[2022-07-23 14:09] LABS: UA COLLECTION TYPE CLN CATCH MIDSTREAM
[2022-07-23 14:11] LABS: RBC,URINE NONE SEEN /HPF (0-2); SQUAMOUS EPITHELIAL CELL,UR MANY /LPF (FEW)
[2022-07-23 14:12] LABS: BACTERIA,URINE 2+ /HPF (Neg); MUCUS STRANDS NONE SEEN /LPF (Neg)
[2022-07-23] MEDS ORDERED: HYDROcodone/acetaminophen 10/325mg tab PO ONE (14:15)
[2022-07-23] MEDS ORDERED: ondansetron 4mg rapidly disintigrating tab PO ONE (14:15)
[2022-07-23] MEDS ORDERED: ketorolac trometh. 30mg/ml inj. IM ONE (14:15)
[2022-07-23] MEDS ORDERED: CefTRIAXone 250MG inj IM ONE (14:20)
--- NOTE | 2022-07-23 14:25 | NUR ---
[facility] 10 verified by Theo RN. Med scanner not working in exam room.
[2022-07-23] MEDS ORDERED: CefTRIAXone 1000mg IM Kit (w/lidocaine diluent) IM ONE (14:40)
[2022-07-23] MEDS ORDERED: ONDA4TAB12 PO (14:57)
[2022-07-23] MEDS ORDERED: HYDR-3965 PO (14:57)
[2022-07-23] MEDS ORDERED: CEPH250T PO (14:57)
== END 2022-07-23 15:05 | disposition home or self-care (01) ==
LOC: ER 13:14
DX: N39.0 Urinary tract infection, site not specified (principal); N20.0 Calculus of kidney; N18.9 Chronic kidney disease, unspecified; F31.9 Bipolar disorder, unspecified; Z90.49 Acquired absence of other specified parts of digestive tract; Z88.1 Allergy status to other antibiotic agents; Z88.2 Allergy status to sulfonamides; Z79.899 Other long term (current) drug therapy; Z79.1 Long term (current) use of non-steroidal anti-inflammatories (NSAID); Z79.2 Long term (current) use of antibiotics
CPT/HCPCS: 36415; 74176; 80053; 81001; 81025; 83690; 85025; 96372; 99285; J0696; J1885

== ENCOUNTER 2022-11-29 11:42 | Emergency (ER) | payer BC ==
[~2022-11-29] VITALS: Ht 162.6 cm; Wt 75.6 kg
[~2022-11-29 11:42] MED LIST changes: -LURA20TA PO; +LURA20TA8 PO
[2022-11-29 12:37] LABS: CLARITY,URINE CLEAR (Clear); COLOR,URINE YELLOW (Yellow); GLUCOSE, URINE NEGATIVE (Neg); KETONES,URINE NEGATIVE (Neg); LEUKOCYTE ESTERASE ,URINE NEGATIVE (Neg); NITRITES, URINE NEGATIVE (Neg); OCCULT BLOOD,URINE NEGATIVE (Neg); PROTEIN,URINE NEGATIVE (Neg); URINE HCG NEGATIVE (NEG); UROBILINOGEN,URINE 0.2 E.U/dL (0.2-1.0)
[2022-11-29 12:39] LABS: UA COLLECTION TYPE CLN CATCH MIDSTREAM
[2022-11-29 12:53] LABS: HEMATOCRIT 42.7 % (35.0-45.0); HEMOGLOBIN 14.5 g/dl (12.0-16.0); MEAN CORPUSCULAR HEMOGLOBIN 31.2 PG (27.0-31.0); MEAN CORPUSCULAR HGB CONC 33.8 g/dL (33.0-36.5); MEAN CORPUSCULAR VOLUME 92.3 FL (78-98); MEAN PLATELET VOLUME 7.4 FL (7.4-10.4); PLATELET COUNT 269 X10'3 (140-440); RED BLOOD COUNT 4.63 X10'6 (4.20-5.60); RED CELL DISTRIBUTION WIDTH 12.8 % (11.5-14.5); WHITE BLOOD COUNT 7.7 X10'3 (4.5-11.0)
[2022-11-29 13:08] LABS: ALANINE AMINOTRANSFERASE 66 U/L (12-78); ALBUMIN 4.1 G/DL (3.4-5.0); ALBUMIN/GLOBULIN RATIO 1.2 (1.1-1.5); ALKALINE PHOSPHATASE 133 IU/L (46-116); ANION GAP 14 (8-16); ASPARTATE AMINO TRANSFERASE 32 U/L (10-37); BILIRUBIN,TOTAL 0.4 MG/DL (0.1-1.0); BLOOD UREA NITROGEN 16 MG/DL (7-18); BUN/CREATININE RATIO 12.5 (10.0-20.0); CALCIUM 9.2 MG/DL (8.5-10.1); CHLORIDE 103 MMOL/L (99-107); CREATININE 1.28 MG/DL (0.40-0.90); GLUCOSE 132 MG/DL (70-104); LIPASE < 50 U/L (73-393); SODIUM 142 MMOL/L (135-145); TOTAL CARBON DIOXIDE 24.7 MMOL/L (24-32); TOTAL PROTEIN 7.6 G/DL (6.4-8.2); eGFR 44 ML/MIN
[2022-11-29] MEDS ORDERED: potassium Cl 20 mEq SR tablet PO ONE (13:35)
[2022-11-29 13:42] LABS: TOTAL CELLS COUNTED 100
[2022-11-29 13:43] LABS: LARGE PLATELETS FEW; PLATELET ESTIMATE NORMAL; TEAR DROP CELLS FEW
[2022-11-29] MEDS ORDERED: HYDROcodone/acetaminophen 10/325mg tab PO ONE (14:20)
[2022-11-29] MEDS ORDERED: ondansetron 4mg rapidly disintigrating tab PO ONE (14:20)
[2022-11-29 14:57] VITALS: BP 145/79
== END 2022-11-29 14:58 | disposition home or self-care (01) ==
LOC: ER 11:42
DX: R10.84 Generalized abdominal pain (principal); E87.6 Hypokalemia; N18.9 Chronic kidney disease, unspecified; F31.9 Bipolar disorder, unspecified; F12.10 Cannabis abuse, uncomplicated; Z90.49 Acquired absence of other specified parts of digestive tract; Z88.8 Allergy status to other drugs, medicaments and biological substances; Z88.2 Allergy status to sulfonamides
CPT/HCPCS: 36415; 74176; 80053; 81003; 81025; 83690; 85007; 85025; 99283; 99284

== ENCOUNTER 2023-06-20 15:01 | Emergency (ER) | payer BC ==
[~2023-06-20] VITALS: Ht 162.6 cm; Wt 73.6 kg
[2023-06-20 15:08] VITALS: BP 123/60; PULSE 87; RESP 18; TEMP 98; O2SAT 98
== END 2023-06-20 16:09 | disposition left against medical advice (07) ==
LOC: ER 15:02
DX: R10.9 Unspecified abdominal pain (principal); Z53.21 Procedure and treatment not carried out due to patient leaving prior to being seen by health care provider
CPT/HCPCS: 99281

== ENCOUNTER 2023-09-13 20:04 | Emergency (ER) | payer BC ==
[~2023-09-13] VITALS: Ht 162.6 cm; Wt 76.2 kg
[2023-09-13 20:07] VITALS: TEMP 97.7
[2023-09-13 20:31] LABS: EOSINOPHILS # (AUTO) 0.2 X10'3 (0-0.9); HEMOGLOBIN 14.4 g/dl (12.0-16.0); LYMPHOCYTES # (AUTO) 1.7 X10'3 (1.1-4.8); MONOCYTES # (AUTO) 0.4 X10'3 (0-0.9)
[2023-09-13 20:33] LABS: BASOPHILS # (AUTO) 0.1 X10'3 (0-0.2); BASOPHILS % (AUTO) 1.1 % (0-1); EOSINOPHILS % (AUTO) 3.5 % (0-6); HEMATOCRIT 40.9 % (35.0-45.0); MEAN CORPUSCULAR HEMOGLOBIN 32.1 PG (27.0-31.0); MEAN CORPUSCULAR HGB CONC 35.2 g/dL (33.0-36.5); MEAN CORPUSCULAR VOLUME 91.2 FL (78-98); MEAN PLATELET VOLUME 6.9 FL (7.4-10.4); NEUTROPHILS # (AUTO) 2.8 X10'3 (1.8-7.7); NEUTROPHILS % (AUTO) 55.4 % (42-75); PLATELET COUNT 245 X10'3 (140-440); RED BLOOD COUNT 4.49 X10'6 (4.20-5.60); RED CELL DISTRIBUTION WIDTH 12.9 % (11.5-14.5); WHITE BLOOD COUNT 5.1 X10'3 (4.5-11.0)
[2023-09-13 20:39] LABS: BILIRUBIN,URINE NEGATIVE (Neg); CLARITY,URINE SLIGHTLY CLOUDY (Clear); COLOR,URINE YELLOW (Yellow); GLUCOSE, URINE NEGATIVE (Neg); KETONES,URINE NEGATIVE (Neg); LEUKOCYTE ESTERASE ,URINE NEGATIVE (Neg); NITRITES, URINE NEGATIVE (Neg); OCCULT BLOOD,URINE NEGATIVE (Neg); PROTEIN,URINE NEGATIVE (Neg); UROBILINOGEN,URINE 0.2 E.U/dL (0.2-1.0)
[2023-09-13 20:40] LABS: UA COLLECTION TYPE CONDOM CATH; URINE HCG NEGATIVE (NEG)
[2023-09-13 20:44] LABS: ALANINE AMINOTRANSFERASE 27 U/L (12-78); ALBUMIN 3.8 G/DL (3.4-5.0); ALKALINE PHOSPHATASE 120 IU/L (46-116); ANION GAP 8 (8-16); ASPARTATE AMINO TRANSFERASE 14 U/L (10-37); BILIRUBIN,TOTAL 0.2 MG/DL (0.1-1.0); BLOOD UREA NITROGEN 15 MG/DL (7-18); BUN/CREATININE RATIO 12.4 (10.0-20.0); CHLORIDE 105 MMOL/L (99-107); CREATININE 1.21 MG/DL (0.40-0.90); GLUCOSE 122 MG/DL (70-104); LIPASE 26 U/L (16-77); POTASSIUM 3.6 MMOL/L (3.5-5.1); SODIUM 141 MMOL/L (135-145); TOTAL CARBON DIOXIDE 28.3 MMOL/L (24-32); TOTAL PROTEIN 7.6 G/DL (6.4-8.2); eCRCL 47 ML/MIN; eGFR 47 ML/MIN
[2023-09-13 20:58] LABS: BACTERIA,URINE FEW /HPF (Neg); MUCUS STRANDS FEW /LPF (Neg); RBC,URINE 0-2 /HPF (0-2); SQUAMOUS EPITHELIAL CELL,UR MANY /LPF (FEW); TRANSITIONAL EPI CELLS,URINE FEW /HPF; WBC,URINE 0-4 /HPF (0-4)
[2023-09-13 20:59] LABS: RENAL CELLS, URINE FEW /HPF
[2023-09-13 21:12] LABS: TOTAL CELLS COUNTED 100
[2023-09-13 21:13] LABS: PLATELET ESTIMATE NORMAL
[2023-09-13] MEDS: ondansetron/PF 4mg/2ml inj IV ONE (23:28)
[2023-09-13] MEDS: morphine 4 MG/ML inj SYRINge IV ONE (23:28)
[2023-09-13] MEDS: acetaminophen 325mg tablet PO ONE (23:28)
[2023-09-13] MEDS ORDERED: HYDR-3965 PO (23:59)
[2023-09-13] MEDS ORDERED: ONDA8TAB13 PO (23:59)
[2023-09-14] MEDS: HYDROcodone/acetaminophen 10/325mg tab PO ONE (00:25)
[2023-09-14 00:34] VITALS: BP 118/73; PULSE 76; RESP 16; O2SAT 98
== END 2023-09-14 00:39 | disposition home or self-care (01) ==
LOC: ER 20:05
DX: R10.9 Unspecified abdominal pain (principal); R11.0 Nausea; F12.90 Cannabis use, unspecified, uncomplicated; Z90.49 Acquired absence of other specified parts of digestive tract; Z90.710 Acquired absence of both cervix and uterus; Z98.890 Other specified postprocedural states
CPT/HCPCS: 36415; 80053; 81001; 81025; 83690; 85007; 85025; 96374; 96375; 99284; J2270; J2405; 96376

== ENCOUNTER 2024-04-30 13:08 | Emergency (ER) | payer BC ==
[~2024-04-30] VITALS: Ht 162.6 cm; Wt 68.9 kg
[~2024-04-30 13:08] MED LIST changes: +ONDA-243 PO; +ONDA-245 PO; -ONDA4TAB12 PO
[2024-04-30 14:11] LABS: URINE HCG NEGATIVE (NEG)
[2024-04-30 14:13] LABS: BILIRUBIN,URINE NEGATIVE (Neg); CLARITY,URINE SLIGHTLY CLOUDY (Clear); COLOR,URINE YELLOW (Yellow); GLUCOSE, URINE NEGATIVE (Neg); KETONES,URINE NEGATIVE (Neg); LEUKOCYTE ESTERASE ,URINE TRACE (Neg); NITRITES, URINE NEGATIVE (Neg); OCCULT BLOOD,URINE NEGATIVE (Neg); PROTEIN,URINE NEGATIVE (Neg); UROBILINOGEN,URINE 0.2 E.U/dL (0.2-1.0)
[2024-04-30 14:16] LABS: ALANINE AMINOTRANSFERASE 25 U/L (12-78); ALBUMIN 4.1 G/DL (3.4-5.0); ALKALINE PHOSPHATASE 112 IU/L (46-116); ANION GAP 6 (8-16); ASPARTATE AMINO TRANSFERASE 18 U/L (10-37); BILIRUBIN,TOTAL 0.4 MG/DL (0.1-1.0); BLOOD UREA NITROGEN 16 MG/DL (7-18); BUN/CREATININE RATIO 12.1 (10.0-20.0); CALCIUM 9.4 MG/DL (8.5-10.1); CHLORIDE 99 MMOL/L (99-107); CREATININE 1.32 MG/DL (0.40-0.90); GLUCOSE 101 MG/DL (70-104); LIPASE 26 U/L (16-77); POTASSIUM 3.9 MMOL/L (3.5-5.1); SODIUM 136 MMOL/L (135-145); TOTAL CARBON DIOXIDE 31.4 MMOL/L (24-32); TOTAL PROTEIN 8.2 G/DL (6.4-8.2); eCRCL 43 ML/MIN; eGFR 42 ML/MIN
[2024-04-30 14:17] LABS: UA COLLECTION TYPE CLN CATCH MIDSTREAM
[2024-04-30 14:19] LABS: BACTERIA,URINE 1+ /HPF (Neg); RBC,URINE NONE SEEN /HPF (0-2); SQUAMOUS EPITHELIAL CELL,UR MODERATE /LPF (FEW); WBC,URINE 0-4 /HPF (0-4)
[2024-04-30 14:20] LABS: AMORPHOUS URATES 1+; MUCUS STRANDS FEW /LPF (Neg)
[2024-04-30 14:25] LABS: BASOPHILS # (AUTO) 0.1 X10'3 (0-0.2); BASOPHILS % (AUTO) 0.9 % (0-1); EOSINOPHILS # (AUTO) 0.1 X10'3 (0-0.9); EOSINOPHILS % (AUTO) 2.1 % (0-6); HEMOGLOBIN 14.7 g/dl (12.0-16.0); LYMPHOCYTES # (AUTO) 1.9 X10'3 (1.1-4.8); MEAN CORPUSCULAR HEMOGLOBIN 31.9 PG (27.0-31.0); MEAN CORPUSCULAR VOLUME 93.7 FL (78-98); MONOCYTES # (AUTO) 0.4 X10'3 (0-0.9); MONOCYTES % (AUTO) 6.5 % (2-12); NEUTROPHILS # (AUTO) 4.2 X10'3 (1.8-7.7); NEUTROPHILS % (AUTO) 62.5 % (42-75); PLATELET COUNT 278 X10'3 (140-440); RED BLOOD COUNT 4.59 X10'6 (4.20-5.60); RED CELL DISTRIBUTION WIDTH 12.5 % (11.5-14.5); WHITE BLOOD COUNT 6.7 X10'3 (4.5-11.0)
[2024-04-30] MEDS ORDERED: NITR100C6 PO (15:37)
[2024-04-30] MEDS: ketorolac trometh 30MG/ML vial 30 MG/ML VIAL IM ONE (17:35)
[2024-04-30 17:37] VITALS: BP 142/78; PULSE 84; RESP 16; TEMP 91.8; O2SAT 99
== END 2024-04-30 17:40 | disposition home or self-care (01) ==
LOC: ER 13:08
DX: N39.0 Urinary tract infection, site not specified (principal); F12.90 Cannabis use, unspecified, uncomplicated; G89.29 Other chronic pain; F31.9 Bipolar disorder, unspecified; N18.9 Chronic kidney disease, unspecified; Z88.2 Allergy status to sulfonamides; Z88.8 Allergy status to other drugs, medicaments and biological substances; Z91.018 Allergy to other foods; Z79.899 Other long term (current) drug therapy; Z87.442 Personal history of urinary calculi; Z90.710 Acquired absence of both cervix and uterus; Z90.49 Acquired absence of other specified parts of digestive tract; Z98.890 Other specified postprocedural states
CPT/HCPCS: 36415; 74176; 80053; 81001; 81025; 83690; 85025; 87088; 96372; 99285; J1885